=== PATIENT | male | born 1925 | race African-American/Black ===

== ENCOUNTER 2016-05-05 08:36 | Inpatient (IN) | payer MEDICARE, BC, MEDICAID ==
[2016-05-05] MEDS ORDERED: ACETAMINOPHEN 650 MG SUPP.RECT PR ONE ×2 (08:52→08:53)
[2016-05-05] MEDS ORDERED: NORMAL SALINE 1000 ML 1,000 ML IV ONE ×2 (09:03→10:46)
--- NOTE | 2016-05-05 09:03 | ER Document Report ---
ED Fever - General Mode of Arrival: Medic Information source: Relative - daugther TRAVEL OUTSIDE OF THE [place] IN LAST 30 DAYS: No - HPI Patient complains to provider of: Fever Onset: This morning Associated symptoms: Other - see above <TACHO ESCALANTE - Last Filed: 05/05/16 09:05> <MACIEJ MURRAY - Last Filed: 05/05/16 13:38> - General Chief Complaint: Fever Stated Complaint: FEVER Notes: 89 year old non-verbal male with history of pneumonia presents to the ED via EMS after having a high temperature earlier this morning. Daughter states the nurse that was taking care of the patient thinks that there is phlegm build up in the patient's neck. (TACHO ESCALANTE) - Related Data Allergies/Adverse Reactions: No Known Allergies Allergy (Verified 12/25/15 13:11) Past Medical History - General Information source: Relative - Social History Smoking Status: Never Smoker Chew tobacco use (# tins/day): No Frequency of alcohol use: None Drug Abuse: None Family History: Reviewed & Not Pertinent Patient has suicidal ideation: No Patient has homicidal ideation: No - Past Medical History Cardiac Medical History: Reports: Hx Coronary Artery Disease - per EMS, Hx Hypertension Pulmonary Medical History: Reports: Hx Asthma, Hx Pneumonia Endocrine Medical History: Reports: Hx Hypothyroidism Renal/ Medical History: Reports: Hx Benign Prostatic Hyperplasia Musculoskeltal Medical History: Reports Hx Arthritis Psychiatric Medical History: Reports: Hx Anxiety, Hx Dementia, Hx Depression <TACHO ESCALANTE - Last Filed: 05/05/16 09:05> Review of Systems - Review of Systems Constitutional: See HPI, Fever EENT: No symptoms reported Cardiovascular: No symptoms reported Respiratory: No symptoms reported Gastrointestinal: No symptoms reported Genitourinary: No symptoms reported Male Genitourinary: No symptoms reported Musculoskeletal: No symptoms reported Skin: No symptoms reported Hematologic/Lymphatic: No symptoms reported Neurological/Psychological: No symptoms reported <TACHO ESCALANTE - Last Filed: 05/05/16 09:05> <MACIEJ MURRAY - Last Filed: 05/05/16 13:38> - Review of Systems Notes: A comprehensive ROS is unobtainable due to the patient's status. (TACHO ESCALANTE) Physical Exam - Vital signs Interpretation: Other - Patient was at 84% oxygen saturation on room air upon examination - General General appearance: Alert, Other - mouth breather In distress: None - HEENT Head: Normocephalic, Atraumatic Eyes: Normal Extraocular movements intact: Yes Pupils: PERRL - Respiratory Respiratory status: No respiratory distress Breath sounds: Rhonchi - Cardiovascular Rhythm: Regular Heart sounds: Normal auscultation - Abdominal Inspection: Normal - Back Back: Normal - Extremities General upper extremity: Normal inspection General lower extremity: Normal inspection - Neurological Neuro grossly intact: Yes - Skin Skin Temperature: Hot Skin Moisture: Dry Skin Color: Normal <TACHO ESCALANTE - Last Filed: 05/05/16 09:05> <MACIEJ MURRAY - Last Filed: 05/05/16 13:38> - Vital signs Vitals: Temp Pulse Resp BP Pulse Ox 103.4 F H 92 24 H 147/113 H 91 L 05/05/16 08:49 05/05/16 08:49 05/05/16 08:49 05/05/16 08:49 05/05/16 08:49 (TACHO ESCALANTE) (MACIEJ MURRAY) Course <TACHO ESCALANTE - Last Filed: 05/05/16 09:05> - Laboratory Result Diagrams: 05/05/16 11:00 05/05/16 11:00 - Diagnostic Test Radiology reviewed: Image reviewed, Reports reviewed - Bilateral lower lobe airspace disease right greater than left - EKG Interpretation by Fl EKG shows normal: Sinus rhythm, Intervals, QRS Complexes, ST-T Waves. abnormal : [place] Rate: Normal - 85 Rhythm: Arrthymia [place]/QRS: Left axis deviation When compared to previous EKG there are: No significant change - Consults Dr. Santos Time consulted: 11:00 Consulted provider: will see as inpatient <MACIEJ MURRAY - Last Filed: 05/05/16 13:38> - Re-evaluation Re-evalutation: 05/05/16 09:38 The daughter reports the patient is a difficult IV stick. He almost always requires central lines to be placed. PROCEEDURE: External Jugular Vein IV Catheter Insertion--- I found a good right external jugular vein, this was accessed with an 18-gauge IV catheter. Initially there was blood in the tube that went up and down with respirations but was unable to aspirate the blood. The catheter was flushed several times with saline flush up to 40 mL's. Each time flushed easily, no swelling was seen. The IV bag was hung and allowed to free flow and would run fast between respirations and slow down with respiration. After approximately half a liter of fluid there is still no swelling seen. Blood cannot be pulled back from the catheter. (MACIEJ MURRAY) - Vital Signs Vital signs: Temp Pulse Resp BP Pulse Ox 101 F H 82 22 H 90/54 L 95 05/05/16 12:01 05/05/16 10:20 05/05/16 12:01 05/05/16 12:01 05/05/16 12:01 (TACHO ESCALANTE) (MACIEJ MURRAY) - Laboratory Laboratory results interpreted by me: 05/05/16 05/05/16 05/05/16 09:29 11:00 11:00 RBC 3.35 L Hgb 10.2 L Hct 31.1 L RDW 17.2 H Plt Count 71 L Band Neutrophils % 21 H Monocytes % (Manual) 0 L Metamyelocytes % 3 H Abs Monocytes (Manual) 0.0 L Sodium 156.1 H Chloride 119 H BUN 74 H Creatinine 1.40 H Est GFR ( Amer) 58 L Est GFR (Non-Af Amer) 48 L Glucose 73 L Lactic Acid Creatine Kinase 401 H Albumin 2.4 L Urine Protein 30 H Urine Blood MODERATE H Urine Urobilinogen 4.0 H Ur Leukocyte Esterase LARGE H Urine Ascorbic Acid 40 H 05/05/16 11:00 RBC Hgb Hct RDW Plt Count Band Neutrophils % Monocytes % (Manual) Metamyelocytes % Abs Monocytes (Manual) Sodium Chloride BUN Creatinine Est GFR ( Amer) Est GFR (Non-Af Amer) Glucose Lactic Acid 2.4 H Creatine Kinase Albumin Urine Protein Urine Blood Urine Urobilinogen Ur Leukocyte Esterase Urine Ascorbic Acid Critical Care Note - Critical Care Note Total time excluding time spent on procedures (mins): 35 <MACIEJ MURRAY - Last Filed: 05/05/16 13:38> Discharge <TACHO ESCALANTE - Last Filed: 05/05/16 09:05> - Discharge Unit Admitted: Telemetry <MACIEJ MURRAY - Last Filed: 05/05/16 13:38> - Discharge Clinical Impression: Severe sepsis, Dehydration Pneumonia Qualifiers: Pneumonia type: due to unspecified organism Laterality: bilateral Lung location : lower lobe of lung Qualified Code(s): J18.9 - Pneumonia, unspecified organism Fever Qualifiers: Fever type: unspecified Qualified Code(s): R50.9 - Fever, unspecified Hypotension Qualifiers: Hypotension type: other hypotension type Qualified Code(s): I95.89 - Other hypotension Aspiration pneumonia Qualifiers: Aspiration pneumonia type: unspecified Laterality: left Lung location: lower lobe of lung Qualified Code(s): J69.0 - Pneumonitis due to inhalation of food and vomit BPH with obstruction/lower urinary tract symptoms Qualifiers: Prostatic enlargement morphology: unspecified morphology Qualified Code(s): N40.1 - Benign prostatic hyperplasia with lower urinary tract symptoms Hypothyroidism Qualifiers: Hypothyroidism type: unspecified Qualified Code(s): E03.9 - Hypothyroidism, unspecified Osteoarthritis Qualifiers: Osteoarthritis location: unspecified site Osteoarthritis type: unspecified Qualified Code(s): M19.90 - Unspecified osteoarthritis, unspecified site Alzheimer disease Qualifiers: Alzheimer's disease onset: late-onset Dementia behavioral disturbance: without behavioral disturbance Qualified Code(s): G30.1 - Alzheimer's disease with late onset Leukocytosis Qualifiers: Leukocytosis type: bandemia Qualified Code(s): D72.825 - Bandemia Condition: Fair Disposition: ADMITTED INPATIENT Scribe Attestation: 05/05/16 11:04 I personally performed the services described in the documentation, reviewed and edited the documentation which was dictated to the scribe in my presence, and it accurately records my words and actions. (MACIEJ MURRAY) Scribe Documentation - Scribe Written by Scribe:: Tacho Escalante (05/05/2016) acting as scribe for :: Otis <TACHO ESCALANTE - Last Filed: 05/05/16 09:05>
[2016-05-05 10:05] LABS: AMORPHOUS SEDIMENT,URINE TRACE /HPF; APPEARANCE,URINE CLOUDY; BILIRUBIN,URINE NEGATIVE (NEGATIVE); GLUCOSE, URINE NEGATIVE (NEGATIVE); KETONES,URINE NEGATIVE (NEGATIVE); LEUKOCYTE ESTERASE,URINE LARGE (NEGATIVE); NITRITE,URINE NEGATIVE (NEGATIVE); PROTEIN,URINE 30 mg/dL (NEGATIVE); URINE SPECIFIC GRAVITY 1.016
[2016-05-05] MEDS ORDERED: LEVOFLOXACIN 750 MG/D5W RTU 150 ML IV ONE (10:53)
[2016-05-05 11:20] LABS: HEMATOCRIT 31.1 % (37.9-51.0); HEMOGLOBIN 10.2 g/dL (13.5-17.0); HGB HCT DIFFERENCE -0.5; MEAN CORPUSCULAR HEMOGLOBIN 30.6 pg (27.0-33.4); MEAN CORPUSCULAR HGB CONC 32.9 g/dL (32.0-36.0); MEAN CORPUSCULAR VOLUME 93 fl (80-97); RED BLOOD COUNT 3.35 10^6/uL (4.35-5.55); RED CELL DISTRIBUTION WIDTH 17.2 % (11.5-14.0); WHITE BLOOD COUNT 6.3 10^3/uL (4.0-10.5)
[2016-05-05 11:35] LABS: ALANINE AMINOTRANSFERASE 60 U/L (21-72); ALBUMIN 2.4 g/dL (3.5-5.0); ALKALINE PHOSPHATASE 105 U/L (38-126); ANION GAP 11 (5-19); ASPARTATE AMINO TRANSFERASE 56 U/L (17-59); BILIRUBIN,TOTAL 1.2 mg/dL (0.2-1.3); BLOOD UREA NITROGEN 74 mg/dL (7-20); CALCIUM 8.8 mg/dL (8.4-10.2); CARBON DIOXIDE 26 mmol/L (22-30); CHLORIDE 119 mmol/L (98-107); CREATINE KINASE 401 U/L (55-170); GLUCOSE 73 mg/dL (75-110); POTASSIUM 4.2 mmol/L (3.6-5.0); SODIUM 156.1 mmol/L (137-145); TOTAL PROTEIN 6.3 g/dL (6.3-8.2)
[2016-05-05 11:38] LABS: BASOPHILS % (MANUAL) 0 % (0-2); EOSINOPHILS % (MANUAL) 0 % (0-6); LYMPHOCYTES % (MANUAL) 24 % (13-45); TOTAL CELLS COUNTED 100
[2016-05-05 11:41] LABS: ANISOCYTOSIS 1+; BAND NEUTROPHILS % (MANUAL) 21 % (3-5); POIKILOCYTOSIS 1+; TARGET CELLS 1+
[2016-05-05 11:48] LABS: CREATINE KINASE MB < 0.22 ng/mL (<4.55)
[2016-05-05 11:53] LABS: TROPONIN I 0.149 ng/mL
[2016-05-05] MEDS ORDERED: LEVOTHYROXINE SODIUM 0.05 MG TABLET PO ONE (16:30)
[2016-05-05] MEDS: DEXTROSE 5%-WATER 1000 ML 1,000 ML IV PRN (18:40)
[2016-05-05 20:38] LABS: LIPASE 26.9 U/L (23-300); MAGNESIUM 2.2 mg/dL (1.6-2.3); PHOSPHORUS 2.1 mg/dL (2.5-4.5)
[2016-05-05 21:09] LABS: THYROID STIMULATING HORMONE 6.07 uIU/mL (0.47-4.68)
--- NOTE | 2016-05-05 21:28 | EKG REPORT ---
SEVERITY:- BORDERLINE ECG - SINUS RHYTHM W PACS BORDERLINE LEFT AXIS DEVIATION : Confirmed by: Pérez Sepulveda MD 05-May-2016 21:28:04
[2016-05-05] MEDS: HEPARIN SOD (PORCINE) 5,000 UNIT/ML 1 ML SYRINGE SUBCUT SCH (21:47)
[2016-05-06 04:30] LABS: HEMATOCRIT 30.7 % (37.9-51.0); HEMOGLOBIN 10.1 g/dL (13.5-17.0); HGB HCT DIFFERENCE -0.4; MEAN CORPUSCULAR HEMOGLOBIN 30.4 pg (27.0-33.4); MEAN CORPUSCULAR HGB CONC 32.8 g/dL (32.0-36.0); MEAN CORPUSCULAR VOLUME 93 fl (80-97); RED CELL DISTRIBUTION WIDTH 17.1 % (11.5-14.0); WHITE BLOOD COUNT 9.9 10^3/uL (4.0-10.5)
[2016-05-06 04:32] LABS: ALANINE AMINOTRANSFERASE 59 U/L (21-72); ALBUMIN 2.3 g/dL (3.5-5.0); ALKALINE PHOSPHATASE 85 U/L (38-126); ANION GAP 9 (5-19); ASPARTATE AMINO TRANSFERASE 44 U/L (17-59); BILIRUBIN,DIRECT 0.1 mg/dL (0.0-0.3); BILIRUBIN,TOTAL 1.5 mg/dL (0.2-1.3); BLOOD UREA NITROGEN 80 mg/dL (7-20); CALCIUM 8.4 mg/dL (8.4-10.2); CARBON DIOXIDE 25 mmol/L (22-30); CHLORIDE 118 mmol/L (98-107); CREATININE RESULT 1.47 mg/dL (0.52-1.25); GLUCOSE 87 mg/dL (75-110); POTASSIUM 4.3 mmol/L (3.6-5.0); SODIUM 152.1 mmol/L (137-145); TOTAL PROTEIN 5.9 g/dL (6.3-8.2)
[2016-05-06 04:43] LABS: CREATINE KINASE MB 0.99 ng/mL (<4.55); TROPONIN I 0.091 ng/mL
[2016-05-06] MEDS: HEPARIN SOD (PORCINE) 5,000 UNIT/ML 1 ML SYRINGE SUBCUT SCH ×3 (05:38→21:27)
[2016-05-06 05:45] LABS: URINE BARBITURATES SCREEN NEGATIVE; URINE METHADONE SCREEN NEGATIVE; URINE PHENCYCLIDINE SCREEN NEGATIVE
[2016-05-06] MEDS: LEVOTHYROXINE SODIUM 0.05 MG TABLET PO SCH (05:59)
[2016-05-06 06:05] LABS: BAND NEUTROPHILS % (MANUAL) 18 % (3-5); BASOPHILS % (MANUAL) 0 % (0-2); EOSINOPHILS % (MANUAL) 2 % (0-6); LYMPHOCYTES % (MANUAL) 7 % (13-45); TOTAL CELLS COUNTED 100
[2016-05-06 06:06] LABS: ANISOCYTOSIS 1+; SCHISTOCYTES SLIGHT; TARGET CELLS SLIGHT; TOXIC GRANULATION SLIGHT
[2016-05-06] MEDS: LEVOFLOXACIN 750 MG/D5W RTU 750 MG/150 ML RTUPB IV SCH (16:07)
--- NOTE | 2016-05-06 18:12 | PDOC H&P ---
History of Present Illness Admission Date/PCP: 05/05/16 15:29 History of Present Illness: LILA OLIVEROS is a 89 year old male, he has advanced dementia , he is non- verbal , he does not communicate bed bound [facility]. [facility] because of pneumonia, is a DO NOT RESUSCITATE status. Chest x-ray showed large opacification involving the inferior right hemithorax. This suggest aspiration pneumonia. He has indwelling Saldivar catheter and is seems that the urethra is necrotic Past Medical History Cardiac Medical History: Reports: Coronary Artery Disease - per EMS, Hypertension Pulmonary Medical History: Reports: Asthma, Pneumonia Endocrine Medical History: Reports: Hypothyroidism Musculoskeltal Medical History: Reports: Arthritis Psychiatric Medical History: Reports: Dementia, Depression Social History Information Source: Outside Facility Records Lives with: Long-Term Smoking Status: Never Smoker Frequency of Alcohol Use: None Hx Recreational Drug Use: No Hx Prescription Drug Abuse: No Family History Family History: Reviewed & Not Pertinent Parental Family History Reviewed: Yes Children Family History Reviewed: Yes Sibling(s) Family History Reviewed.: Yes Medication/Allergy Home Medications: Azelastine HCl 205.5 mcg NS DAILY 02/23/15 Loratadine 10 mg PO DAILY 02/23/15 Tamsulosin HCl 0.4 mg PO DAILY 02/23/15 Losartan Potassium 1 tab PO DAILY 12/26/15 Multivit-Min/FA/Lycopene/Lut [Certavite Sr-Antioxidant Tab] 1 tab PO DAILY 12/25 Polyvinyl Alcohol [Liquitears] 1 drop OU BID 12/26/15 Carvedilol [Coreg 3.125 mg Tablet] 3.125 mg PO Q12 #0 tablet 12/30/15 Furosemide [Lasix 40 mg Tablet] 40 mg PO QAM #30 tablet 12/30/15 Levothyroxine Sodium [Synthroid 0.05 mg Tablet] 0.05 mg PO Q6AM #0 tablet Docusate Sodium [Colace 100 mg Capsule] 100 mg PO BID 05/05/16 Donepezil HCl [Aricept] 10 mg PO DAILY 05/05/16 Allergies/Adverse Reactions: No Known Allergies Allergy (Verified 12/25/15 13:11) Review of Systems ROS unobtainable: Due to mental status - He has advanced dementia,history not obtaianble Physical Exam Vital Signs: Temp Pulse Resp BP Pulse Ox 99.3 F 73 19 102/53 L 97 05/06/16 00:39 05/06/16 00:39 05/06/16 00:39 05/06/16 00:39 05/06/16 09:33 Intake & Output 05/05/16 05/06/16 05/07/16 06:59 06:59 06:59 Intake Total 0 Output Total 570 Balance -570 Weight 83.6 kg Respiratory exam: PRESENT: crackles Cardiovascular exam: PRESENT: +S1, +S2 GI/Abdominal exam: PRESENT: soft - There is a PEG tube in place Gentrourinary exam: PRESENT: indwelling catheter - There is necrosis of the urethra Neurological exam: PRESENT: altered Skin exam: PRESENT: other - There are multiple decubiti ulcer involving the sacrum and both ankles, the sacral decubiti ulcer is stage s and the ankle decubiti ulcer is stage 1-2 Results Laboratory Results: 05/06/16 03:54 05/06/16 03:54 05/06/16 05/06/16 03:54 03:54 WBC 9.9 RBC 3.30 L Hgb 10.1 L Hct 30.7 L MCV 93 MCH 30.4 MCHC 32.8 RDW 17.1 H Plt Count 65 L Seg Neutrophils % Not Reportable Lymphocytes % Not Reportable Monocytes % Not Reportable Eosinophils % Not Reportable Basophils % Not Reportable Absolute Neutrophils Not Reportable Absolute Lymphocytes Not Reportable Absolute Monocytes Not Reportable Absolute Eosinophils Not Reportable Absolute Basophils Not Reportable Sodium 152.1 H Potassium 4.3 Chloride 118 H Carbon Dioxide 25 Anion Gap 9 BUN 80 H Creatinine 1.47 H Est GFR ( Amer) 55 L Est GFR (Non-Af Amer) 45 L Glucose 87 Calcium 8.4 Total Bilirubin 1.5 H AST 44 ALT 59 Alkaline Phosphatase 85 Total Protein 5.9 L Albumin 2.3 L 05/06/16 03:54 CK-MB (CK-2) 0.99 Troponin I 0.091 Impressions: Chest X-Ray 05/05/16 09:02 IMPRESSION: New bilateral airspace opacification right more than left suggests pneumonia. Consider continued surveillance including follow-up in 7-12 weeks. Assessment & Plan - Diagnosis (1) Aspiration pneumonia Qualifiers: Aspiration pneumonia type: unspecified Laterality: bilateral Lung location: unspecified part of lung Qualified Code(s): J69.0 - Pneumonitis due to inhalation of food and vomit Is this a current diagnosis for this admission?: YesPlan: He has bilateral pneumonia, most likely due to aspiration. Patient on Unasyn and Levaquin (2) Sacral decubitus ulcer, stage III Is this a current diagnosis for this admission?: YesPlan: This is present on admission (3) Urethra disorder Is this a current diagnosis for this admission?: YesPlan: He has indwelling Saldivar catheter with urethra breakdown, he will need suprapubic catheter
--- NOTE | 2016-05-06 18:20 | PDOC PROGRESS REPORT ---
Subjective Progress Note for:: 05/06/16 Subjective:: He was admitted yesterday because of aspiration pneumonia, he does not communicate, he has advanced dementia, bedbound Physical Exam Vital Signs: Temp Pulse Resp BP Pulse Ox 99.3 F 73 19 102/53 L 97 05/06/16 00:39 05/06/16 00:39 05/06/16 00:39 05/06/16 00:39 05/06/16 09:33 Intake & Output 05/05/16 05/06/16 05/07/16 06:59 06:59 06:59 Intake Total 0 Output Total 570 Balance -570 Weight 83.6 kg Eye exam: PRESENT: PERRLA Respiratory exam: PRESENT: rales Cardiovascular exam: PRESENT: +S1, +S2 GI/Abdominal exam: PRESENT: soft Results Laboratory Results: 05/06/16 03:54 05/06/16 03:54 05/06/16 05/06/16 03:54 03:54 WBC 9.9 RBC 3.30 L Hgb 10.1 L Hct 30.7 L MCV 93 MCH 30.4 MCHC 32.8 RDW 17.1 H Plt Count 65 L Seg Neutrophils % Not Reportable Lymphocytes % Not Reportable Monocytes % Not Reportable Eosinophils % Not Reportable Basophils % Not Reportable Absolute Neutrophils Not Reportable Absolute Lymphocytes Not Reportable Absolute Monocytes Not Reportable Absolute Eosinophils Not Reportable Absolute Basophils Not Reportable Sodium 152.1 H Potassium 4.3 Chloride 118 H Carbon Dioxide 25 Anion Gap 9 BUN 80 H Creatinine 1.47 H Est GFR ( Amer) 55 L Est GFR (Non-Af Amer) 45 L Glucose 87 Calcium 8.4 Total Bilirubin 1.5 H AST 44 ALT 59 Alkaline Phosphatase 85 Total Protein 5.9 L Albumin 2.3 L 05/06/16 03:54 CK-MB (CK-2) 0.99 Troponin I 0.091 Impressions: Chest X-Ray 05/05/16 09:02 IMPRESSION: New bilateral airspace opacification right more than left suggests pneumonia. Consider continued surveillance including follow-up in 7-12 weeks. Assessment & Plan - Diagnosis (1) Aspiration pneumonia Qualifiers: Aspiration pneumonia type: unspecified Laterality: bilateral Lung location: unspecified part of lung Qualified Code(s): J69.0 - Pneumonitis due to inhalation of food and vomit Is this a current diagnosis for this admission?: YesPlan: Continue IV antibiotic (2) Sacral decubitus ulcer, stage III Is this a current diagnosis for this admission?: Yes (3) Urethra disorder Is this a current diagnosis for this admission?: Yes
[2016-05-06] MEDS ORDERED: AMPICILLIN SOD/SULBACTAM 3 GM VIAL ONE (21:01)
[2016-05-06] MEDS: AMPICILLIN SODIUM/SULBACTAM NA 3 GM in NORMAL SALINE 100 ML IV SCH ×2 (21:25→23:55)
[2016-05-07 05:21] LABS: HEMATOCRIT 29.2 % (37.9-51.0); HEMOGLOBIN 9.7 g/dL (13.5-17.0); HGB HCT DIFFERENCE -0.1; MEAN CORPUSCULAR HEMOGLOBIN 30.7 pg (27.0-33.4); MEAN CORPUSCULAR HGB CONC 33.2 g/dL (32.0-36.0); MEAN CORPUSCULAR VOLUME 92 fl (80-97); RED BLOOD COUNT 3.17 10^6/uL (4.35-5.55); RED CELL DISTRIBUTION WIDTH 16.8 % (11.5-14.0); WHITE BLOOD COUNT 10.6 10^3/uL (4.0-10.5)
[2016-05-07 05:22] LABS: ALANINE AMINOTRANSFERASE 56 U/L (21-72); ALBUMIN 1.9 g/dL (3.5-5.0); ALKALINE PHOSPHATASE 84 U/L (38-126); ANION GAP 11 (5-19); ASPARTATE AMINO TRANSFERASE 45 U/L (17-59); BILIRUBIN,TOTAL 1.3 mg/dL (0.2-1.3); BLOOD UREA NITROGEN 78 mg/dL (7-20); CALCIUM 8.1 mg/dL (8.4-10.2); CARBON DIOXIDE 24 mmol/L (22-30); CHLORIDE 115 mmol/L (98-107); CREATININE RESULT 1.35 mg/dL (0.52-1.25); GLUCOSE 87 mg/dL (75-110); SODIUM 149.7 mmol/L (137-145); TOTAL PROTEIN 5.6 g/dL (6.3-8.2)
[2016-05-07] MEDS: AMPICILLIN SODIUM/SULBACTAM NA 3 GM in NORMAL SALINE 100 ML IV SCH ×4 (05:42→23:54)
[2016-05-07] MEDS: DEXTROSE 5%-WATER 1000 ML 1,000 ML IV PRN ×2 (05:42→18:10)
[2016-05-07] MEDS: LEVOTHYROXINE SODIUM 0.05 MG TABLET PO SCH (05:42)
[2016-05-07 05:49] LABS: BAND NEUTROPHILS % (MANUAL) 10 % (3-5); BASOPHILS % (MANUAL) 0 % (0-2); EOSINOPHILS % (MANUAL) 2 % (0-6); LYMPHOCYTES % (MANUAL) 15 % (13-45); TOTAL CELLS COUNTED 100
[2016-05-07 05:51] LABS: TOXIC GRANULATION SLIGHT; TOXIC VACUOLATION PRESENT
[2016-05-07 05:52] LABS: ANISOCYTOSIS 1+; HYPOCHROMASIA SLIGHT; OVALOCYTES SLIGHT; POIKILOCYTOSIS SLIGHT
[2016-05-07] MEDS: HEPARIN SOD (PORCINE) 5,000 UNIT/ML 1 ML SYRINGE SUBCUT SCH ×3 (05:58→23:52)
[2016-05-07] MEDS: LEVOFLOXACIN 750 MG/D5W RTU 750 MG/150 ML RTUPB IV SCH (10:45)
--- NOTE | 2016-05-07 20:31 | PDOC PROGRESS REPORT ---
Subjective Progress Note for:: 05/07/16 Subjective:: I saw patient, his daughter by the bedside, I had a long discussion with her about her father's condition and also prognosis. He has indwelling Saldivar catheter with disorder of the urethra, he probably needed to have suprapubic catheter, but there is no etiology on medical staff at this time. Once he is discharged a be referred to urologist on outpatient Physical Exam Vital Signs: Temp Pulse Resp BP Pulse Ox 98.8 F 60 14 113/62 98 05/07/16 15:48 05/07/16 17:16 05/07/16 17:16 05/07/16 15:48 05/07/16 17:16 Intake & Output 05/06/16 05/07/16 05/08/16 06:59 06:59 06:59 Intake Total 0 1253 2226 Output Total 570 875 500 Balance -226 098 6855 Weight 83.6 kg 86.6 kg General appearance: PRESENT: no acute distress Eye exam: PRESENT: PERRLA Respiratory exam: PRESENT: decreased breath sounds Cardiovascular exam: PRESENT: +S1, +S2 GI/Abdominal exam: PRESENT: soft Results Laboratory Results: 05/07/16 04:16 05/07/16 04:16 05/07/16 05/07/16 04:16 04:16 WBC 10.6 H RBC 3.17 L Hgb 9.7 L Hct 29.2 L MCV 92 MCH 30.7 MCHC 33.2 RDW 16.8 H Plt Count 60 L Seg Neutrophils % Not Reportable Lymphocytes % Not Reportable Monocytes % Not Reportable Eosinophils % Not Reportable Basophils % Not Reportable Absolute Neutrophils Not Reportable Absolute Lymphocytes Not Reportable Absolute Monocytes Not Reportable Absolute Eosinophils Not Reportable Absolute Basophils Not Reportable Sodium 149.7 H Potassium 4.0 Chloride 115 H Carbon Dioxide 24 Anion Gap 11 BUN 78 H Creatinine 1.35 H Est GFR ( Amer) > 60 Est GFR (Non-Af Amer) 50 L Glucose 87 Calcium 8.1 L Total Bilirubin 1.3 AST 45 ALT 56 Alkaline Phosphatase 84 Total Protein 5.6 L Albumin 1.9 L 05/06/16 03:54 CK-MB (CK-2) 0.99 Troponin I 0.091 Impressions: Chest X-Ray 05/05/16 09:02 IMPRESSION: New bilateral airspace opacification right more than left suggests pneumonia. Consider continued surveillance including follow-up in 7-12 weeks. Assessment & Plan - Diagnosis (1) Aspiration pneumonia Qualifiers: Aspiration pneumonia type: unspecified Laterality: bilateral Lung location: unspecified part of lung Qualified Code(s): J69.0 - Pneumonitis due to inhalation of food and vomit Is this a current diagnosis for this admission?: Yes (2) Sacral decubitus ulcer, stage III Is this a current diagnosis for this admission?: Yes (3) Urethra disorder Is this a current diagnosis for this admission?: Yes
[2016-05-08] MEDS: AMPICILLIN SODIUM/SULBACTAM NA 3 GM in NORMAL SALINE 100 ML IV SCH ×3 (06:20→17:25)
[2016-05-08] MEDS: HEPARIN SOD (PORCINE) 5,000 UNIT/ML 1 ML SYRINGE SUBCUT SCH ×3 (06:24→22:57)
[2016-05-08] MEDS: LEVOTHYROXINE SODIUM 0.05 MG TABLET PO SCH (06:25)
[2016-05-08 07:53] LABS: ABSOLUTE EOSINOPHILS # (AUTO) 0.2 10^3/uL (0.0-0.6); ABSOLUTE LYMPHOCYTES (AUTO) 2.6 10^3/uL (0.5-4.7); ABSOLUTE MONOCYTES (AUTO) 0.4 10^3/uL (0.1-1.4); ABSOLUTE NEUT (AUTO) 6.4 10^3/uL (1.7-8.2); BASOPHILS % (AUTO) 0.2 % (0-2); EOSINOPHILS % (AUTO) 2.1 % (0-6); HEMATOCRIT 29.3 % (37.9-51.0); HEMOGLOBIN 9.6 g/dL (13.5-17.0); HGB HCT DIFFERENCE -0.5; LYMPHOCYTES % (AUTO) 26.8 % (13-45); MEAN CORPUSCULAR HEMOGLOBIN 30.3 pg (27.0-33.4); MEAN CORPUSCULAR HGB CONC 32.8 g/dL (32.0-36.0); MEAN CORPUSCULAR VOLUME 92 fl (80-97); MONOCYTES % (AUTO) 4.2 % (3-13); RED BLOOD COUNT 3.18 10^6/uL (4.35-5.55); RED CELL DISTRIBUTION WIDTH 16.9 % (11.5-14.0); SEGMENTED NEUTROPHILS % (AUTO) 66.7 % (42-78); WHITE BLOOD COUNT 9.6 10^3/uL (4.0-10.5)
[2016-05-08 08:08] LABS: ALBUMIN 2.1 g/dL (3.5-5.0); ANION GAP 9 (5-19); BLOOD UREA NITROGEN 68 mg/dL (7-20); CALCIUM 8.2 mg/dL (8.4-10.2); CARBON DIOXIDE 27 mmol/L (22-30); CHLORIDE 114 mmol/L (98-107); CREATININE RESULT 1.31 mg/dL (0.52-1.25); GLUCOSE 109 mg/dL (75-110); POTASSIUM 3.6 mmol/L (3.6-5.0); SODIUM 149.9 mmol/L (137-145)
[2016-05-08 08:09] LABS: ALANINE AMINOTRANSFERASE 51 U/L (21-72); ALKALINE PHOSPHATASE 105 U/L (38-126); ASPARTATE AMINO TRANSFERASE 58 U/L (17-59); BILIRUBIN,TOTAL 0.8 mg/dL (0.2-1.3); TOTAL PROTEIN 5.9 g/dL (6.3-8.2)
[2016-05-08 08:46] LABS: ANISOCYTOSIS 1+; HYPOCHROMASIA 1+; POLYCHROMASIA SLIGHT; TARGET CELLS SLIGHT; TOXIC GRANULATION 1+
[2016-05-08] MEDS: LEVOFLOXACIN 750 MG/D5W RTU 750 MG/150 ML RTUPB IV SCH (10:01)
--- NOTE | 2016-05-08 17:42 | PDOC PROGRESS REPORT ---
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 The urine culture is growing polymicrobial which is not unexpected. Physical Exam Vital Signs: Temp Pulse Resp BP Pulse Ox 99.0 F 61 20 128/69 H 100 05/08/16 12:21 05/08/16 12:22 05/08/16 12:21 05/08/16 12:21 05/08/16 12:21 Intake & Output 05/07/16 05/08/16 05/09/16 06:59 06:59 06:59 Intake Total 1253 3276 2921 Output Total 875 500 100 Balance 378 2776 2821 Weight 86.6 kg 87.8 kg General appearance: PRESENT: no acute distress Eye exam: PRESENT: PERRLA Respiratory exam: PRESENT: crackles Cardiovascular exam: PRESENT: +S1, +S2 Results Laboratory Results: 05/08/16 07:34 05/08/16 07:34 05/08/16 05/08/16 07:34 07:34 WBC 9.6 RBC 3.18 L Hgb 9.6 L Hct 29.3 L MCV 92 MCH 30.3 MCHC 32.8 RDW 16.9 H Plt Count 56 L Seg Neutrophils % 66.7 Lymphocytes % 26.8 Monocytes % 4.2 Eosinophils % 2.1 Basophils % 0.2 Absolute Neutrophils 6.4 Absolute Lymphocytes 2.6 Absolute Monocytes 0.4 Absolute Eosinophils 0.2 Absolute Basophils 0.0 Sodium 149.9 H Potassium 3.6 Chloride 114 H Carbon Dioxide 27 Anion Gap 9 BUN 68 H Creatinine 1.31 H Est GFR ( Amer) > 60 Est GFR (Non-Af Amer) 52 L Glucose 109 Calcium 8.2 L Total Bilirubin 0.8 AST 58 ALT 51 Alkaline Phosphatase 105 Total Protein 5.9 L Albumin 2.1 L 05/06/16 04:50 Catheterized Urine Urine Culture - Final Providencia Stuartii Pseudomonas Aeruginosa 05/06/16 03:54 CK-MB (CK-2) 0.99 Troponin I 0.091 Impressions: Chest X-Ray 05/05/16 09:02 IMPRESSION: New bilateral airspace opacification right more than left suggests pneumonia. Consider continued surveillance including follow-up in 7-12 weeks. Assessment & Plan - Diagnosis (1) Aspiration pneumonia Qualifiers: Aspiration pneumonia type: unspecified Laterality: bilateral Lung location: unspecified part of lung Qualified Code(s): J69.0 - Pneumonitis due to inhalation of food and vomit Is this a current diagnosis for this admission?: Yes (2) Sacral decubitus ulcer, stage III Is this a current diagnosis for this admission?: Yes (3) Urethra disorder Is this a current diagnosis for this admission?: Yes (4) Urinary tract infection associated with indwelling urethral catheter Qualifiers: Encounter type: sequela Qualified Code(s): T83.511S - Infection and inflammatory reaction due to indwelling urethral catheter, sequela; N39.0 - Urinary tract infection, site not specified Is this a current diagnosis for this admission?: Yes
[2016-05-09] MEDS: AMPICILLIN SODIUM/SULBACTAM NA 3 GM in NORMAL SALINE 100 ML IV SCH ×3 (00:21→13:29)
[2016-05-09] MEDS: LEVOTHYROXINE SODIUM 0.05 MG TABLET PO SCH (05:38)
[2016-05-09] MEDS: HEPARIN SOD (PORCINE) 5,000 UNIT/ML 1 ML SYRINGE SUBCUT SCH ×3 (05:43→21:55)
[2016-05-09] MEDS: DEXTROSE 5%-WATER 1000 ML 1,000 ML IV PRN (08:31)
[2016-05-09] MEDS: LEVOFLOXACIN 750 MG/D5W RTU 750 MG/150 ML RTUPB IV SCH (10:46)
[2016-05-09] MEDS: CEFEPIME HCL 2 GM in DEXTROSE 5%-WATER 50 ML IV SCH (21:54)
[2016-05-10] MEDS: LEVOTHYROXINE SODIUM 0.05 MG TABLET PO SCH (05:27)
[2016-05-10] MEDS: HEPARIN SOD (PORCINE) 5,000 UNIT/ML 1 ML SYRINGE SUBCUT SCH ×3 (05:27→21:50)
[2016-05-10] MEDS: DEXTROSE 5%-WATER 1000 ML 1,000 ML IV PRN (14:16)
--- NOTE | 2016-05-10 16:58 | PDOC PROGRESS REPORT ---
Subjective Progress Note for:: 05/09/16 Subjective:: He has polymicrobial UTI and staph aureus pneumonia ORGANISMS sensitive to cefepime Physical Exam Vital Signs: Temp Pulse Resp BP Pulse Ox 98.4 F 49 L 18 141/83 H 100 05/09/16 15:54 05/09/16 15:54 05/09/16 12:28 05/09/16 15:54 05/09/16 15:54 Intake & Output 05/08/16 05/09/16 05/10/16 06:59 06:59 06:59 Intake Total 3276 4271 1100 Output Total 500 700 Balance 2776 3571 1100 Weight 87.8 kg General appearance: PRESENT: mild distress Eye exam: PRESENT: PERRLA Respiratory exam: PRESENT: crackles Cardiovascular exam: PRESENT: +S1, +S2 Results Laboratory Results: 05/08/16 07:34 05/08/16 07:34 05/06/16 04:50 Catheterized Urine Urine Culture - Final Providencia Stuartii Pseudomonas Aeruginosa 05/06/16 03:54 CK-MB (CK-2) 0.99 Troponin I 0.091 Impressions: Chest X-Ray 05/05/16 09:02 IMPRESSION: New bilateral airspace opacification right more than left suggests pneumonia. Consider continued surveillance including follow-up in 7-12 weeks. Assessment & Plan - Diagnosis (1) Aspiration pneumonia Qualifiers: Aspiration pneumonia type: unspecified Laterality: bilateral Lung location: unspecified part of lung Qualified Code(s): J69.0 - Pneumonitis due to inhalation of food and vomit Is this a current diagnosis for this admission?: YesPlan: Continue IV cefepime (2) Sacral decubitus ulcer, stage III Is this a current diagnosis for this admission?: Yes (3) Urethra disorder Is this a current diagnosis for this admission?: Yes (4) Urinary tract infection associated with indwelling urethral catheter Qualifiers: Encounter type: sequela Qualified Code(s): T83.511S - Infection and inflammatory reaction due to indwelling urethral catheter, sequela; N39.0 - Urinary tract infection, site not specified Is this a current diagnosis for this admission?: Yes
--- NOTE | 2016-05-10 17:00 | PDOC PROGRESS REPORT ---
Subjective Progress Note for:: 05/10/16 Subjective:: Patient condition is about the same Physical Exam Vital Signs: Temp Pulse Resp BP Pulse Ox 98.0 F 45 L 20 134/67 H 98 05/10/16 11:52 05/10/16 11:52 05/10/16 11:52 05/10/16 11:52 05/10/16 11:52 Intake & Output 05/09/16 05/10/16 05/11/16 06:59 06:59 06:59 Intake Total 4271 2200 Output Total 700 1000 Balance 3571 1200 Weight 87.8 kg General appearance: PRESENT: mild distress Eye exam: PRESENT: PERRLA Respiratory exam: PRESENT: rales Cardiovascular exam: PRESENT: +S1, +S2 Results Laboratory Results: 05/08/16 07:34 05/08/16 07:34 05/06/16 03:54 CK-MB (CK-2) 0.99 Troponin I 0.091 Impressions: Chest X-Ray 05/05/16 09:02 IMPRESSION: New bilateral airspace opacification right more than left suggests pneumonia. Consider continued surveillance including follow-up in 7-12 weeks. Assessment & Plan - Diagnosis (1) Aspiration pneumonia Qualifiers: Aspiration pneumonia type: unspecified Laterality: bilateral Lung location: unspecified part of lung Qualified Code(s): J69.0 - Pneumonitis due to inhalation of food and vomit Is this a current diagnosis for this admission?: Yes (2) Sacral decubitus ulcer, stage III Is this a current diagnosis for this admission?: Yes (3) Urethra disorder Is this a current diagnosis for this admission?: Yes (4) Urinary tract infection associated with indwelling urethral catheter Qualifiers: Encounter type: sequela Qualified Code(s): T83.511S - Infection and inflammatory reaction due to indwelling urethral catheter, sequela; N39.0 - Urinary tract infection, site not specified Is this a current diagnosis for this admission?: Yes
[2016-05-10] MEDS: CEFEPIME HCL 2 GM in DEXTROSE 5%-WATER 50 ML IV SCH (22:00)
[2016-05-11] MEDS: DEXTROSE 5%-WATER 1000 ML 1,000 ML IV PRN ×2 (02:52→23:50)
[2016-05-11] MEDS: HEPARIN SOD (PORCINE) 5,000 UNIT/ML 1 ML SYRINGE SUBCUT SCH ×3 (05:41→21:44)
[2016-05-11] MEDS: LEVOTHYROXINE SODIUM 0.05 MG TABLET PO SCH (05:44)
--- NOTE | 2016-05-11 11:00 | PDOC PROGRESS REPORT ---
Subjective Progress Note for:: 05/11/16 Subjective:: Patient is doing same no change. Patient is lying in bed alert awake but very bad dementia patient is tolerate tube feeding well Physical Exam Vital Signs: Temp Pulse Resp BP Pulse Ox 98.0 F 47 L 20 129/68 H 100 05/11/16 00:06 05/11/16 00:00 05/11/16 00:06 05/11/16 00:06 05/11/16 02:05 Intake & Output 05/10/16 05/11/16 05/12/16 06:59 06:59 06:59 Intake Total 2200 2386 Output Total 1000 850 Balance 1200 1536 Weight 87.8 kg 88.2 kg General appearance: PRESENT: no acute distress Eye exam: PRESENT: PERRLA Mouth exam: PRESENT: neck supple Respiratory exam: PRESENT: clear to auscultation anastasia Cardiovascular exam: PRESENT: +S1, +S2 GI/Abdominal exam: PRESENT: normal bowel sounds Extremities exam: PRESENT: pedal edema Additional comments: stage 4 decicutus ulcer ulcer on rt leg Neurological exam: PRESENT: alert, altered. ABSENT: oriented to person Skin exam: PRESENT: dry Results Laboratory Results: 05/08/16 07:34 05/08/16 07:34 05/06/16 03:54 CK-MB (CK-2) 0.99 Troponin I 0.091 Impressions: Chest X-Ray 05/05/16 09:02 IMPRESSION: New bilateral airspace opacification right more than left suggests pneumonia. Consider continued surveillance including follow-up in 7-12 weeks. Assessment & Plan - Diagnosis (1) Aspiration pneumonia Qualifiers: Aspiration pneumonia type: unspecified Laterality: left Lung location: lower lobe of lung Qualified Code(s): J69.0 - Pneumonitis due to inhalation of food and vomit Is this a current diagnosis for this admission?: YesPlan: Continue IV antibiotic (2) Dehydration Is this a current diagnosis for this admission?: YesPlan: Stable continues to tube feeding (3) Sacral decubitus ulcer, stage III Is this a current diagnosis for this admission?: YesPlan: Continue current current medications (4) Alzheimer disease Qualifiers: Alzheimer's disease onset: late-onset Dementia behavioral disturbance: without behavioral disturbance Qualified Code(s): G30.1 - Alzheimer's disease with late onset; F02.81 - Dementia in other diseases classified elsewhere with behavioral disturbance Is this a current diagnosis for this admission?: YesPlan: Very poor prognosis - Time Time Spent with patient: 15-24 minutes Medications reviewed and adjusted accordingly: Yes Anticipated discharge: SNF - Inpatient Certification Medical Necessity: Significant Comorbidiites Make Outpatient Treatment Too Risky , Need for IV Antibiotics - Plan Summary Plan Summary: Continue all current medications with the very poor prognosis
[2016-05-11] MEDS: CEFEPIME HCL 2 GM in DEXTROSE 5%-WATER 50 ML IV SCH (21:46)
[2016-05-12] MEDS: HEPARIN SOD (PORCINE) 5,000 UNIT/ML 1 ML SYRINGE SUBCUT SCH ×3 (05:43→22:07)
[2016-05-12] MEDS: LEVOTHYROXINE SODIUM 0.05 MG TABLET PO SCH (06:35)
--- NOTE | 2016-05-12 11:38 | PDOC PROGRESS REPORT ---
Subjective Progress Note for:: 05/12/16 Subjective:: Patient is doing same no change. Patient is lying in bed alert awake but very bad dementia patient is tolerate tube feeding well Physical Exam Vital Signs: Temp Pulse Resp BP Pulse Ox 98.9 F 55 L 20 106/58 L 92 05/12/16 07:43 05/12/16 07:43 05/12/16 07:43 05/12/16 07:43 05/12/16 07:43 Intake & Output 05/11/16 05/12/16 05/13/16 06:59 06:59 06:59 Intake Total 2386 2729 222 Output Total 850 900 Balance 1536 1829 222 Weight 88.2 kg 86.5 kg General appearance: PRESENT: no acute distress Head exam: PRESENT: normocephalic Eye exam: PRESENT: PERRLA Mouth exam: PRESENT: neck supple Respiratory exam: PRESENT: clear to auscultation anastasia Cardiovascular exam: PRESENT: +S1, +S2 GI/Abdominal exam: PRESENT: normal bowel sounds, soft Extremities exam: PRESENT: pedal edema Neurological exam: PRESENT: alert Skin exam: PRESENT: normal color Results Laboratory Results: 05/08/16 07:34 05/08/16 07:34 05/06/16 03:54 CK-MB (CK-2) 0.99 Troponin I 0.091 Impressions: Chest X-Ray 05/05/16 09:02 IMPRESSION: New bilateral airspace opacification right more than left suggests pneumonia. Consider continued surveillance including follow-up in 7-12 weeks. Assessment & Plan - Diagnosis (1) Aspiration pneumonia Qualifiers: Aspiration pneumonia type: unspecified Laterality: left Lung location: lower lobe of lung Qualified Code(s): J69.0 - Pneumonitis due to inhalation of food and vomit Is this a current diagnosis for this admission?: YesPlan: Continue IV antibiotic (2) Dehydration Is this a current diagnosis for this admission?: YesPlan: Stable continues to tube feeding (3) Sacral decubitus ulcer, stage III Is this a current diagnosis for this admission?: YesPlan: Continue current current medications (4) Alzheimer disease Qualifiers: Alzheimer's disease onset: late-onset Dementia behavioral disturbance: without behavioral disturbance Qualified Code(s): G30.1 - Alzheimer's disease with late onset; F02.81 - Dementia in other diseases classified elsewhere with behavioral disturbance Is this a current diagnosis for this admission?: YesPlan: Very poor prognosis - Time Time Spent with patient: 15-24 minutes Medications reviewed and adjusted accordingly: Yes Anticipated discharge: SNF - Plan Summary Plan Summary: Continues the current medications patient is DO NOT RESUSCITATE discussed with the family
[2016-05-12] MEDS: DEXTROSE 5%-WATER 1000 ML 1,000 ML IV PRN (17:57)
[2016-05-12] MEDS: CEFEPIME HCL 2 GM in DEXTROSE 5%-WATER 50 ML IV SCH (22:06)
[2016-05-13] MEDS: DEXTROSE 5%-WATER 1000 ML 1,000 ML IV PRN (05:06)
[2016-05-13] MEDS: LEVOTHYROXINE SODIUM 0.05 MG TABLET PO SCH (06:32)
[2016-05-13] MEDS: HEPARIN SOD (PORCINE) 5,000 UNIT/ML 1 ML SYRINGE SUBCUT SCH ×3 (06:33→21:10)
--- NOTE | 2016-05-13 10:03 | PDOC PROGRESS REPORT ---
Subjective Progress Note for:: 05/13/16 Subjective:: Patient is doing same no change Physical Exam Vital Signs: Temp Pulse Resp BP Pulse Ox 98.3 F 54 L 20 117/61 100 05/12/16 23:26 05/12/16 23:26 05/12/16 23:26 05/12/16 23:26 05/12/16 23:26 Intake & Output 05/12/16 05/13/16 05/14/16 06:59 06:59 06:59 Intake Total 2729 1742 Output Total 900 500 Balance 1829 1242 Weight 86.5 kg 93.2 kg General appearance: PRESENT: no acute distress Head exam: PRESENT: normocephalic Eye exam: PRESENT: PERRLA Mouth exam: PRESENT: neck supple Respiratory exam: PRESENT: clear to auscultation anastasia Cardiovascular exam: PRESENT: +S1, +S2 GI/Abdominal exam: PRESENT: normal bowel sounds, soft Neurological exam: PRESENT: altered Skin exam: PRESENT: normal color Results Laboratory Results: 05/08/16 07:34 05/08/16 07:34 05/06/16 03:54 CK-MB (CK-2) 0.99 Troponin I 0.091 Impressions: Chest X-Ray 05/05/16 09:02 IMPRESSION: New bilateral airspace opacification right more than left suggests pneumonia. Consider continued surveillance including follow-up in 7-12 weeks. Assessment & Plan - Diagnosis (1) Aspiration pneumonia Qualifiers: Aspiration pneumonia type: unspecified Laterality: left Lung location: lower lobe of lung Qualified Code(s): J69.0 - Pneumonitis due to inhalation of food and vomit Is this a current diagnosis for this admission?: YesPlan: Continue IV antibiotic (2) Dehydration Is this a current diagnosis for this admission?: YesPlan: Stable continues to tube feeding (3) Sacral decubitus ulcer, stage III Is this a current diagnosis for this admission?: YesPlan: Continue current current medications (4) Alzheimer disease Qualifiers: Alzheimer's disease onset: late-onset Dementia behavioral disturbance: without behavioral disturbance Qualified Code(s): G30.1 - Alzheimer's disease with late onset; F02.81 - Dementia in other diseases classified elsewhere with behavioral disturbance Is this a current diagnosis for this admission?: Yes - Time Time Spent with patient: Less than 15 minutes Medications reviewed and adjusted accordingly: Yes Anticipated discharge: Other
[2016-05-13] MEDS: CEFEPIME HCL 2 GM in DEXTROSE 5%-WATER 50 ML IV SCH (21:10)
[2016-05-14] MEDS: DEXTROSE 5%-WATER 1000 ML 1,000 ML IV PRN ×2 (02:14→22:22)
[2016-05-14] MEDS: HEPARIN SOD (PORCINE) 5,000 UNIT/ML 1 ML SYRINGE SUBCUT SCH ×3 (05:22→22:30)
[2016-05-14] MEDS: LEVOTHYROXINE SODIUM 0.05 MG TABLET PO SCH (05:22)
--- NOTE | 2016-05-14 18:54 | PDOC PROGRESS REPORT ---
Subjective Progress Note for:: 05/14/16 Subjective:: Patient seen by the bedside. Overall poor condition Physical Exam Vital Signs: Temp Pulse Resp BP Pulse Ox 97.6 F 59 L 18 117/64 97 05/14/16 16:21 05/14/16 17:00 05/14/16 17:00 05/14/16 16:21 05/14/16 17:00 Intake & Output 05/13/16 05/14/16 05/15/16 06:59 06:59 06:59 Intake Total 1742 3623 1200 Output Total 647 073 2638 Balance 1242 2763 0 Weight 93.2 kg 92.3 kg General appearance: PRESENT: no acute distress Respiratory exam: PRESENT: rales Cardiovascular exam: PRESENT: +S1, +S2 GI/Abdominal exam: PRESENT: soft Results Laboratory Results: 05/08/16 07:34 05/08/16 07:34 05/06/16 03:54 CK-MB (CK-2) 0.99 Troponin I 0.091 Impressions: Chest X-Ray 05/05/16 09:02 IMPRESSION: New bilateral airspace opacification right more than left suggests pneumonia. Consider continued surveillance including follow-up in 7-12 weeks. Assessment & Plan - Diagnosis (1) Aspiration pneumonia Qualifiers: Aspiration pneumonia type: unspecified Laterality: bilateral Lung location: unspecified part of lung Qualified Code(s): J69.0 - Pneumonitis due to inhalation of food and vomit Is this a current diagnosis for this admission?: Yes (2) Sacral decubitus ulcer, stage III Is this a current diagnosis for this admission?: Yes (3) Urethra disorder Is this a current diagnosis for this admission?: Yes (4) Urinary tract infection associated with indwelling urethral catheter Qualifiers: Encounter type: sequela Qualified Code(s): T83.511S - Infection and inflammatory reaction due to indwelling urethral catheter, sequela; N39.0 - Urinary tract infection, site not specified Is this a current diagnosis for this admission?: Yes
[2016-05-14] MEDS: CEFEPIME HCL 2 GM in DEXTROSE 5%-WATER 50 ML IV SCH (22:22)
[2016-05-15] MEDS: LEVOTHYROXINE SODIUM 0.05 MG TABLET PO SCH (05:42)
[2016-05-15] MEDS: HEPARIN SOD (PORCINE) 5,000 UNIT/ML 1 ML SYRINGE SUBCUT SCH ×3 (05:43→21:08)
--- NOTE | 2016-05-15 17:21 | PDOC PROGRESS REPORT ---
Subjective Progress Note for:: 05/15/16 Subjective:: The chest x-ray showed some improvement from admission. Chest x-ray Physical Exam Vital Signs: Temp Pulse Resp BP Pulse Ox 98.5 F 54 L 20 118/59 L 100 05/15/16 15:39 05/15/16 15:39 05/15/16 15:39 05/15/16 15:39 05/15/16 15:39 Intake & Output 05/14/16 05/15/16 05/16/16 06:59 06:59 06:59 Intake Total 3623 4303 Output Total 860 2100 Balance 2763 2203 Weight 92.3 kg 92.8 kg General appearance: PRESENT: no acute distress Eye exam: PRESENT: PERRLA Respiratory exam: PRESENT: decreased breath sounds Cardiovascular exam: PRESENT: +S1 Neurological exam: PRESENT: alert Results Laboratory Results: 05/08/16 07:34 05/08/16 07:34 05/06/16 03:54 CK-MB (CK-2) 0.99 Troponin I 0.091 Impressions: Chest X-Ray 05/14/16 00:00 IMPRESSION: Interval improvement in the previously described large opacification in the right lower hemithorax. The previously described left basilar density appears essentially unchanged. Other findings as noted above Assessment & Plan - Diagnosis (1) Aspiration pneumonia Qualifiers: Aspiration pneumonia type: unspecified Laterality: bilateral Lung location: unspecified part of lung Qualified Code(s): J69.0 - Pneumonitis due to inhalation of food and vomit Is this a current diagnosis for this admission?: Yes (2) Sacral decubitus ulcer, stage III Is this a current diagnosis for this admission?: Yes (3) Urethra disorder Is this a current diagnosis for this admission?: Yes (4) Urinary tract infection associated with indwelling urethral catheter Qualifiers: Encounter type: sequela Qualified Code(s): T83.511S - Infection and inflammatory reaction due to indwelling urethral catheter, sequela; N39.0 - Urinary tract infection, site not specified Is this a current diagnosis for this admission?: Yes
[2016-05-15] MEDS: DEXTROSE 5%-WATER 1000 ML 1,000 ML IV PRN (21:08)
[2016-05-15] MEDS: CEFEPIME HCL 2 GM in DEXTROSE 5%-WATER 50 ML IV SCH (21:08)
[2016-05-16] MEDS: LEVOTHYROXINE SODIUM 0.05 MG TABLET PO SCH (05:35)
[2016-05-16] MEDS: HEPARIN SOD (PORCINE) 5,000 UNIT/ML 1 ML SYRINGE SUBCUT SCH ×3 (05:35→21:33)
[2016-05-16] MEDS: DEXTROSE 5%-WATER 1000 ML 1,000 ML IV PRN (08:15)
--- NOTE | 2016-05-16 13:07 | PDOC CONSULTATION ---
Consultation Consult Date: 05/16/16 Attending physician:: NADINE TOM Consult reason:: Possible PEG tube dislocation History of Present Illness Admission Date/PCP: 05/05/16 15:29 History of Present Illness: I been asked to see this patient by the attending physician. Patient has an indwelling percutaneous endoscopic gastrostomy tube. Patient was in the process of getting feedings last night when the site was noted to be swollen and erythematous. Tube feeds were discontinued. The attending was called and requested a GI consult. I received a consult today in the late morning. Evaluation of the PEG tube reveals that the bumper likely due to peristalsis has migrated downwards. This actually about 8 cm between the bumper and the T piece, which I subsequently adjusted. Patient will need a contrast study to determine for adequate placement. Patient otherwise is nonverbal and cannot give any information as to any degree of discomfort or pain. Past Medical History Cardiac Medical History: Reports: Coronary Artery Disease - per EMS, Hypertension Pulmonary Medical History: Reports: Asthma, Pneumonia Endocrine Medical History: Reports: Hypothyroidism Musculoskeltal Medical History: Reports: Arthritis Psychiatric Medical History: Reports: Dementia, Depression Social History Lives with: Group Home Smoking Status: Never Smoker Frequency of Alcohol Use: None Hx Recreational Drug Use: No Hx Prescription Drug Abuse: No Family History Family History: Reviewed & Not Pertinent Parental Family History Reviewed: Yes Children Family History Reviewed: Unknown Sibling(s) Family History Reviewed.: Unknown Medication/Allergy Home Medications: Azelastine HCl 205.5 mcg NS DAILY 02/23/15 Loratadine 10 mg PO DAILY 02/23/15 Tamsulosin HCl 0.4 mg PO DAILY 02/23/15 Losartan Potassium 1 tab PO DAILY 12/26/15 Multivit-Min/FA/Lycopene/Lut [Certavite Sr-Antioxidant Tab] 1 tab PO DAILY 12/25 Polyvinyl Alcohol [Liquitears] 1 drop OU BID 12/26/15 Carvedilol [Coreg 3.125 mg Tablet] 3.125 mg PO Q12 #0 tablet 12/30/15 Furosemide [Lasix 40 mg Tablet] 40 mg PO QAM #30 tablet 12/30/15 Levothyroxine Sodium [Synthroid 0.05 mg Tablet] 0.05 mg PO Q6AM #0 tablet Docusate Sodium [Colace 100 mg Capsule] 100 mg PO BID 05/05/16 Donepezil HCl [Aricept] 10 mg PO DAILY 05/05/16 Allergies/Adverse Reactions: No Known Allergies Allergy (Verified 12/25/15 13:11) Review of Systems Constitutional: PRESENT: as per HPI Eyes: ABSENT: visual disturbances Cardiovascular: ABSENT: dyspnea on exertion, orthropnea Respiratory: ABSENT: dyspnea, hemoptysis Gastrointestinal: ABSENT: coffee ground emesis, diarrhea, hematemesis, melena Genitourinary: ABSENT: hematuria Integumentary: ABSENT: diaphoresis, lesions Neurological: ABSENT: abnormal movements, tremor(s) Endocrine: ABSENT: polyuria Hematologic/Lymphatic: ABSENT: easy bruising Physical Exam Vital Signs: Temp Pulse Resp BP Pulse Ox 98.2 F 57 L 16 136/66 H 100 05/16/16 07:45 05/16/16 07:45 05/16/16 07:45 05/16/16 07:45 05/16/16 07:45 Intake & Output 05/15/16 05/16/16 05/17/16 06:59 06:59 06:59 Intake Total 4303 2355 Output Total 2100 1820 Balance 2203 535 Weight 92.8 kg 93.5 kg General appearance: PRESENT: no acute distress Head exam: PRESENT: atraumatic, normocephalic Eye exam: PRESENT: EOMI, PERRLA. ABSENT: nystagmus, periorbital swelling, scleral icterus Mouth exam: PRESENT: moist, neck supple Throat exam: ABSENT: tonsillar exudate, tonsillogmegaly Neck exam: ABSENT: tenderness, thyromegaly, tracheostomy Respiratory exam: PRESENT: decreased breath sounds, rhonchi, symmetrical, unlabored Cardiovascular exam: PRESENT: RRR, +S1, +S2. ABSENT: rubs GI/Abdominal exam: PRESENT: diminished bowel sounds, soft. ABSENT: guarding, rebound, rigid, tenderness Extremities exam: ABSENT: joint swelling Neurological exam: PRESENT: CN II-XII grossly intact Psychiatric exam: PRESENT: appropriate affect Skin exam: ABSENT: mottled, petechiae, urticaria, vesicles Results Laboratory Results: 05/08/16 07:34 05/08/16 07:34 05/06/16 03:54 CK-MB (CK-2) 0.99 Troponin I 0.091 Impressions: Chest X-Ray 05/14/16 00:00 IMPRESSION: Interval improvement in the previously described large opacification in the right lower hemithorax. The previously described left basilar density appears essentially unchanged. Other findings as noted above Assessment & Plan - Diagnosis (1) Gastrostomy tube dysfunction Plan: We'll check a contrast study to make sure adequate placement. From the examined area did does appear to be in place with perhaps migration of the bumper which now has been readjusted. PEG tube is adequately in position then go ahead and repeat use it at the previous rate. Otherwise may need potential change of PEG. Spoke to nursing with regards to that. Orders have been placed. We'll await on findings. (2) Anemia, chronic disease Plan: Multifactorial Follow as needed - Time Time Spent: 50 to 70 Minutes
--- NOTE | 2016-05-16 20:13 | PDOC PROGRESS REPORT ---
Subjective Progress Note for:: 05/16/16 Subjective:: I spoke to the patient's daughter about his condition, there is no urologist on staff to do the suprapubic catheter placement, the pneumonia has improved. He also have pressure ulcers in both heels and the sacrum, consultation will be requested from surgery for evaluation for possible debridement Physical Exam Vital Signs: Temp Pulse Resp BP Pulse Ox 98.1 F 79 22 H 110/76 100 05/16/16 16:56 05/16/16 16:56 05/16/16 16:56 05/16/16 16:56 05/16/16 17:57 Intake & Output 05/15/16 05/16/16 05/17/16 06:59 06:59 06:59 Intake Total 4303 2355 Output Total 2100 1820 1100 Balance 2203 535 -1100 Weight 92.8 kg 93.5 kg General appearance: PRESENT: no acute distress Respiratory exam: PRESENT: clear to auscultation anastasia Cardiovascular exam: PRESENT: +S1, +S2 GI/Abdominal exam: PRESENT: soft Results Laboratory Results: 05/08/16 07:34 05/08/16 07:34 05/06/16 03:54 CK-MB (CK-2) 0.99 Troponin I 0.091 Impressions: Chest X-Ray 05/14/16 00:00 IMPRESSION: Interval improvement in the previously described large opacification in the right lower hemithorax. The previously described left basilar density appears essentially unchanged. Other findings as noted above Fluoroscopy 05/16/16 00:00 IMPRESSION: Patent gastrostomy tube. No gastric outlet obstruction Assessment & Plan - Diagnosis (1) Aspiration pneumonia Qualifiers: Aspiration pneumonia type: unspecified Laterality: bilateral Lung location: unspecified part of lung Qualified Code(s): J69.0 - Pneumonitis due to inhalation of food and vomit Is this a current diagnosis for this admission?: Yes (2) Sacral decubitus ulcer, stage III Is this a current diagnosis for this admission?: Yes (3) Urethra disorder Is this a current diagnosis for this admission?: Yes (4) Urinary tract infection associated with indwelling urethral catheter Qualifiers: Encounter type: sequela Qualified Code(s): T83.511S - Infection and inflammatory reaction due to indwelling urethral catheter, sequela; N39.0 - Urinary tract infection, site not specified Is this a current diagnosis for this admission?: Yes
[2016-05-17] MEDS: HEPARIN SOD (PORCINE) 5,000 UNIT/ML 1 ML SYRINGE SUBCUT SCH ×3 (06:31→21:09)
[2016-05-17] MEDS: LEVOTHYROXINE SODIUM 0.05 MG TABLET PO SCH (06:31)
--- NOTE | 2016-05-17 07:57 | PDOC PROGRESS REPORT ---
Subjective Progress Note for:: 05/17/16 Subjective:: contrast study reviewed, PEG tube is in the stomach cavity, no leak is noted OK to use the exterior bumper was adjusted the site needs to be cleaned to avoid infection use H2O2 and clean PEG site BID Physical Exam Vital Signs: Temp Pulse Resp BP Pulse Ox 98.7 F 57 L 15 120/66 100 05/16/16 23:57 05/16/16 23:57 05/16/16 23:57 05/16/16 23:57 05/17/16 01:22 Intake & Output 05/16/16 05/17/16 05/18/16 06:59 06:59 06:59 Intake Total 2355 2100 Output Total 1820 2700 Balance 535 -600 Weight 93.5 kg General appearance: PRESENT: no acute distress Head exam: PRESENT: normocephalic Eye exam: PRESENT: EOMI. ABSENT: scleral icterus Neck exam: ABSENT: tenderness, thyromegaly Respiratory exam: PRESENT: rhonchi, symmetrical GI/Abdominal exam: ABSENT: ascites, Camacho's sign Extremities exam: ABSENT: joint swelling Neurological exam: PRESENT: awake Skin exam: PRESENT: normal color. ABSENT: mottled, petechiae, urticaria, vesicles Results Laboratory Results: 05/08/16 07:34 05/08/16 07:34 05/06/16 03:54 CK-MB (CK-2) 0.99 Troponin I 0.091 Impressions: Chest X-Ray 05/14/16 00:00 IMPRESSION: Interval improvement in the previously described large opacification in the right lower hemithorax. The previously described left basilar density appears essentially unchanged. Other findings as noted above Fluoroscopy 05/16/16 00:00 IMPRESSION: Patent gastrostomy tube. No gastric outlet obstruction Assessment & Plan - Diagnosis (1) Gastrostomy tube dysfunction Plan: patent and within the stomach cavity OK to resume use please call if further questions (2) Anemia, chronic disease Plan: follow as needed - Time Time Spent with patient: 15-24 minutes
[2016-05-17] MEDS: DEXTROSE 5%-WATER 1000 ML 1,000 ML IV PRN (17:23)
[2016-05-18] MEDS: HEPARIN SOD (PORCINE) 5,000 UNIT/ML 1 ML SYRINGE SUBCUT SCH (05:16)
[2016-05-18] MEDS: LEVOTHYROXINE SODIUM 0.05 MG TABLET PO SCH (06:05)
--- NOTE | 2016-05-18 11:11 | PDOC CONSULTATION ---
History of Present Illness Admission Date/PCP: 05/05/16 15:29 History of Present Illness: The patient is an 89-year-old -[place] male, admitted from the intermediate on 05/05/2016 for aspiration pneumonia. He has a PEG tube. He has an indwelling Saldivar catheter with urethral breakdown. He is debilitated/ bedridden. 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 He is DO NOT RESUSCITATE. He has sacral decubitus ulcer and bilateral lateral ankle decubitus ulcers. He is able to provide any history. All elements of history of from the nurse the medical record. Surgery has been consult for bilateral lateral malleolus decubitus ulcer evaluation and debridement if needed. Past Medical History Cardiac Medical History: Reports: Coronary Artery Disease - per EMS, Hypertension Pulmonary Medical History: Reports: Asthma, Pneumonia Endocrine Medical History: Reports: Hypothyroidism Renal/ Medical History: Reports: Other - Indwelling Saldivar catheter with urethral breakdown GI Medical History: Reports: Other - Gastrostomy tube. Musculoskeltal Medical History: Reports: Arthritis Skin Medical History: Reports: Other - Sacral decubitus and bilateral lateral malleolus decubitus ulcers. Psychiatric Medical History: Reports: Dementia, Depression Past Surgical History Past Surgical History: Reports: Other - Unknown to me. Social History Information Source: [facility] Records Lives with: [place] Smoking Status: Never Smoker Frequency of Alcohol Use: None Hx Recreational Drug Use: No Hx Prescription Drug Abuse: No Family History Parental Family History Reviewed: No Children Family History Reviewed: No Sibling(s) Family History Reviewed.: No Medication/Allergy Home Medications: Azelastine HCl 205.5 mcg NS DAILY 02/23/15 Loratadine 10 mg PO DAILY 02/23/15 Tamsulosin HCl 0.4 mg PO DAILY 02/23/15 Losartan Potassium 1 tab PO DAILY 12/26/15 Multivit-Min/FA/Lycopene/Lut [Certavite Sr-Antioxidant Tab] 1 tab PO DAILY 12/25 Polyvinyl Alcohol [Liquitears] 1 drop OU BID 12/26/15 Carvedilol [Coreg 3.125 mg Tablet] 3.125 mg PO Q12 #0 tablet 12/30/15 Furosemide [Lasix 40 mg Tablet] 40 mg PO QAM #30 tablet 12/30/15 Levothyroxine Sodium [Synthroid 0.05 mg Tablet] 0.05 mg PO Q6AM #0 tablet Docusate Sodium [Colace 100 mg Capsule] 100 mg PO BID 05/05/16 Donepezil HCl [Aricept] 10 mg PO DAILY 05/05/16 Allergies/Adverse Reactions: No Known Allergies Allergy (Verified 12/25/15 13:11) Review of Systems ROS unobtainable: Due to mental status Physical Exam Vital Signs: Temp Pulse Resp BP Pulse Ox 98.0 F 60 20 147/79 H 100 05/18/16 08:02 05/18/16 08:02 05/18/16 08:02 05/18/16 08:02 05/18/16 08:02 Intake & Output 05/17/16 05/18/16 05/19/16 06:59 06:59 06:59 Intake Total 2100 5300 Output Total 2700 3150 Balance -600 2150 Weight 93.6 kg 94.8 kg General appearance: PRESENT: no acute distress Eye exam: PRESENT: other - His eyes remained closed most of the exam. Teeth exam: PRESENT: poor dentation Extremities exam: PRESENT: other - Bilateral lateral malleolus with sacral decubitus ulcer. The right side ulcer is stage II or III measuring 2.5 x 1.5 cm , surrounded by a larger stage I area measuring 5 x 5 cm. This ulcer is cleansed and debrided with Betadine Q-tips and dry gauze. It is then dressed with an Allevyn dressing. The left side ulcer is stage IV centrally measuring 4 x 2.5 cm, with a larger surrounding area of stage I ulcer measuring 6 x 6 cm. This wound is cleansed with Betadine gauze Q-tips and then debrided sharply with an 11 blade scalpel and scissors and forceps. subcutaneous tissue and fascia is excised and discarded. The wound is again cleansed with Betadine and gauze and then dressed with gauze and Kerlix roll. Neurological exam: PRESENT: awake, aphasic, other - Advanced dementia.. ABSENT : oriented to person, oriented to place, oriented to time, oriented to situation Psychiatric exam: PRESENT: other - Difficult to evaluate: Nonverbal except for some noises/grunts. Skin exam: ABSENT: jaundice Results Laboratory Results: 05/08/16 07:34 05/08/16 07:34 05/06/16 03:54 CK-MB (CK-2) 0.99 Troponin I 0.091 Impressions: Chest X-Ray 05/14/16 00:00 IMPRESSION: Interval improvement in the previously described large opacification in the right lower hemithorax. The previously described left basilar density appears essentially unchanged. Other findings as noted above Fluoroscopy 05/16/16 00:00 IMPRESSION: Patent gastrostomy tube. No gastric outlet obstruction Assessment & Plan - Diagnosis (1) Open wound of ankle, bilateral Qualifiers: Encounter type: initial encounter Qualified Code(s): S91.001A - Unspecified open wound, right ankle, initial encounter; S91.002A - Unspecified open wound, left ankle, initial encounter Is this a current diagnosis for this admission?: YesPlan: After treatment and wound care, discussed daily care regimen with the nurse. The sore on the right is dry and is amenable to Allevyn dressing. The sore on the left is still wet with some tissue in the base yet to be declared. Twice a day dressing changes with gauze for the left sore. Discussed offloading. Continue Owen boots. (2) Aspiration pneumonia Qualifiers: Aspiration pneumonia type: unspecified Laterality: left Lung location: lower lobe of lung Qualified Code(s): J69.0 - Pneumonitis due to inhalation of food and vomit Is this a current diagnosis for this admission?: Yes (3) Sacral decubitus ulcer, stage III Is this a current diagnosis for this admission?: Yes (4) Urethra disorder Is this a current diagnosis for this admission?: Yes (5) Urinary tract infection associated with indwelling urethral catheter Qualifiers: Encounter type: sequela Qualified Code(s): T83.511S - Infection and inflammatory reaction due to indwelling urethral catheter, sequela; N39.0 - Urinary tract infection, site not specified Is this a current diagnosis for this admission?: Yes
--- NOTE | 2016-05-18 12:48 | PDOC PROGRESS REPORT ---
Subjective Progress Note for:: 05/18/16 Subjective:: No overnight events. Physical Exam Vital Signs: Temp Pulse Resp BP Pulse Ox 98.0 F 60 20 147/79 H 100 05/18/16 08:02 05/18/16 08:02 05/18/16 08:02 05/18/16 08:02 05/18/16 08:02 Intake & Output 05/17/16 05/18/16 05/19/16 06:59 06:59 06:59 Intake Total 2100 5300 Output Total 2700 3150 Balance -600 2150 Weight 93.6 kg 94.8 kg General appearance: PRESENT: no acute distress Head exam: PRESENT: atraumatic, normocephalic Extremities exam: PRESENT: other - Bilateral lower extremities wounds are clean , no purulent discharge, no surrounding erythema, clean dressing was applied. Neurological exam: ABSENT: oriented to person, oriented to place, oriented to time Skin exam: PRESENT: other - The wound of the sacral decubitus ulcer is deep and a clean, there is a serious discharge, it is not purulent, no surrounding erythema or skin necrosis. Results Laboratory Results: 05/08/16 07:34 05/08/16 07:34 05/06/16 03:54 CK-MB (CK-2) 0.99 Troponin I 0.091 Impressions: Chest X-Ray 05/14/16 00:00 IMPRESSION: Interval improvement in the previously described large opacification in the right lower hemithorax. The previously described left basilar density appears essentially unchanged. Other findings as noted above Fluoroscopy 05/16/16 00:00 IMPRESSION: Patent gastrostomy tube. No gastric outlet obstruction Assessment & Plan - Diagnosis (1) Open wound of ankle, bilateral Qualifiers: Encounter type: initial encounter Qualified Code(s): S91.001A - Unspecified open wound, right ankle, initial encounter; S91.002A - Unspecified open wound, left ankle, initial encounter Is this a current diagnosis for this admission?: YesPlan: Local wound care, no surgical intervention is needed at this point, please reconsult as needed, patient need to follow up in the wound clinic after discharge (2) Sacral decubitus ulcer, stage III Is this a current diagnosis for this admission?: YesPlan: Continue local wound care, Patient likely to benefit from the wound VAC, no need for surgical debridement or interventions. Turn the patient every 2 hours. Patient will need to follow up in the wound clinic after discharge.
[2016-05-18 16:36] LABS: ABSOLUTE EOSINOPHILS # (AUTO) 0.3 10^3/uL (0.0-0.6); ABSOLUTE LYMPHOCYTES (AUTO) 2.5 10^3/uL (0.5-4.7); ABSOLUTE MONOCYTES (AUTO) 0.7 10^3/uL (0.1-1.4); ABSOLUTE NEUT (AUTO) 3.1 10^3/uL (1.7-8.2); BASOPHILS % (AUTO) 0.5 % (0-2); EOSINOPHILS % (AUTO) 4.3 % (0-6); HEMATOCRIT 28.9 % (37.9-51.0); HEMOGLOBIN 9.6 g/dL (13.5-17.0); HGB HCT DIFFERENCE -0.1; LYMPHOCYTES % (AUTO) 37.6 % (13-45); MEAN CORPUSCULAR HEMOGLOBIN 30.1 pg (27.0-33.4); MEAN CORPUSCULAR HGB CONC 33.2 g/dL (32.0-36.0); MEAN CORPUSCULAR VOLUME 91 fl (80-97); RED BLOOD COUNT 3.19 10^6/uL (4.35-5.55); RED CELL DISTRIBUTION WIDTH 16.7 % (11.5-14.0); SEGMENTED NEUTROPHILS % (AUTO) 46.6 % (42-78); WHITE BLOOD COUNT 6.6 10^3/uL (4.0-10.5)
[2016-05-18 16:53] LABS: ALANINE AMINOTRANSFERASE 35 U/L (21-72); ALBUMIN 2.2 g/dL (3.5-5.0); ALKALINE PHOSPHATASE 123 U/L (38-126); ANION GAP 5 (5-19); ASPARTATE AMINO TRANSFERASE 29 U/L (17-59); BILIRUBIN,TOTAL 0.4 mg/dL (0.2-1.3); BLOOD UREA NITROGEN 27 mg/dL (7-20); CALCIUM 8.2 mg/dL (8.4-10.2); CARBON DIOXIDE 30 mmol/L (22-30); CHLORIDE 100 mmol/L (98-107); CREATININE RESULT 0.73 mg/dL (0.52-1.25); GLUCOSE 99 mg/dL (75-110); POTASSIUM 4.8 mmol/L (3.6-5.0); SODIUM 135.2 mmol/L (137-145); TOTAL PROTEIN 6.3 g/dL (6.3-8.2)
--- NOTE | 2016-05-18 18:51 | PDOC PROGRESS REPORT ---
Subjective Progress Note for:: 05/18/16 Subjective:: Patient was seen by the bedside. The daughter, was in the room as well Physical Exam Vital Signs: Temp Pulse Resp BP Pulse Ox 98.2 F 52 L 18 138/75 H 100 05/18/16 16:36 05/18/16 16:36 05/18/16 16:36 05/18/16 16:36 05/18/16 16:36 Intake & Output 05/17/16 05/18/16 05/19/16 06:59 06:59 06:59 Intake Total 2100 5300 0 Output Total 2700 3150 700 Balance -600 2150 -700 Weight 93.6 kg 94.8 kg Eye exam: PRESENT: PERRLA Respiratory exam: PRESENT: clear to auscultation anastasia Cardiovascular exam: PRESENT: +S1, +S2 Results Laboratory Results: 05/18/16 16:26 05/18/16 16:26 05/18/16 05/18/16 16:26 16:26 WBC 6.6 RBC 3.19 L Hgb 9.6 L Hct 28.9 L MCV 91 MCH 30.1 MCHC 33.2 RDW 16.7 H Plt Count 214 Seg Neutrophils % 46.6 Lymphocytes % 37.6 Monocytes % 11.0 Eosinophils % 4.3 Basophils % 0.5 Absolute Neutrophils 3.1 Absolute Lymphocytes 2.5 Absolute Monocytes 0.7 Absolute Eosinophils 0.3 Absolute Basophils 0.0 Sodium 135.2 L Potassium 4.8 Chloride 100 Carbon Dioxide 30 Anion Gap 5 BUN 27 H Creatinine 0.73 Est GFR ( Amer) > 60 Est GFR (Non-Af Amer) > 60 Glucose 99 Calcium 8.2 L Total Bilirubin 0.4 AST 29 ALT 35 Alkaline Phosphatase 123 Total Protein 6.3 Albumin 2.2 L 05/06/16 03:54 CK-MB (CK-2) 0.99 Troponin I 0.091 Impressions: Chest X-Ray 05/14/16 00:00 IMPRESSION: Interval improvement in the previously described large opacification in the right lower hemithorax. The previously described left basilar density appears essentially unchanged. Other findings as noted above Fluoroscopy 05/16/16 00:00 IMPRESSION: Patent gastrostomy tube. No gastric outlet obstruction Assessment & Plan - Diagnosis (1) Aspiration pneumonia Qualifiers: Aspiration pneumonia type: unspecified Laterality: bilateral Lung location: unspecified part of lung Qualified Code(s): J69.0 - Pneumonitis due to inhalation of food and vomit Is this a current diagnosis for this admission?: Yes (2) Sacral decubitus ulcer, stage III Is this a current diagnosis for this admission?: Yes (3) Urethra disorder Is this a current diagnosis for this admission?: Yes (4) Urinary tract infection associated with indwelling urethral catheter Qualifiers: Encounter type: sequela Qualified Code(s): T83.511S - Infection and inflammatory reaction due to indwelling urethral catheter, sequela; N39.0 - Urinary tract infection, site not specified Is this a current diagnosis for this admission?: Yes
[2016-05-19] MEDS: LEVOTHYROXINE SODIUM 0.05 MG TABLET PO SCH (05:42)
[2016-05-19 06:26] LABS: ABSOLUTE EOSINOPHILS # (AUTO) 0.2 10^3/uL (0.0-0.6); ABSOLUTE LYMPHOCYTES (AUTO) 2.3 10^3/uL (0.5-4.7); ABSOLUTE NEUT (AUTO) 3.5 10^3/uL (1.7-8.2); BASOPHILS % (AUTO) 0.6 % (0-2); EOSINOPHILS % (AUTO) 3.5 % (0-6); HEMATOCRIT 31.3 % (37.9-51.0); HEMOGLOBIN 10.2 g/dL (13.5-17.0); HGB HCT DIFFERENCE -0.7; LYMPHOCYTES % (AUTO) 32.3 % (13-45); MEAN CORPUSCULAR HEMOGLOBIN 30.1 pg (27.0-33.4); MEAN CORPUSCULAR HGB CONC 32.6 g/dL (32.0-36.0); MEAN CORPUSCULAR VOLUME 92 fl (80-97); RED BLOOD COUNT 3.39 10^6/uL (4.35-5.55); RED CELL DISTRIBUTION WIDTH 16.7 % (11.5-14.0); SEGMENTED NEUTROPHILS % (AUTO) 49.6 % (42-78); WHITE BLOOD COUNT 7.1 10^3/uL (4.0-10.5)
[2016-05-19 06:46] LABS: ALANINE AMINOTRANSFERASE 32 U/L (21-72); ALBUMIN 2.6 g/dL (3.5-5.0); ALKALINE PHOSPHATASE 137 U/L (38-126); ANION GAP 6 (5-19); ASPARTATE AMINO TRANSFERASE 29 U/L (17-59); BILIRUBIN,TOTAL 0.4 mg/dL (0.2-1.3); BLOOD UREA NITROGEN 26 mg/dL (7-20); CALCIUM 8.4 mg/dL (8.4-10.2); CARBON DIOXIDE 31 mmol/L (22-30); CHLORIDE 99 mmol/L (98-107); GLUCOSE 94 mg/dL (75-110); POTASSIUM 4.6 mmol/L (3.6-5.0); SODIUM 136.4 mmol/L (137-145); TOTAL PROTEIN 6.9 g/dL (6.3-8.2)
[2016-05-19] MEDS: HEPARIN SOD (PORCINE) 5,000 UNIT/ML 1 ML SYRINGE SUBCUT SCH ×3 (10:31→21:07)
--- NOTE | 2016-05-19 16:03 | PDOC PROGRESS REPORT ---
Subjective Progress Note for:: 05/19/16 Subjective:: Patient is not verbal, Physical Exam Vital Signs: Temp Pulse Resp BP Pulse Ox 97.8 F 66 16 136/74 H 100 05/19/16 08:02 05/19/16 08:02 05/19/16 08:02 05/19/16 08:02 05/19/16 12:30 Intake & Output 05/18/16 05/19/16 05/20/16 06:59 06:59 06:59 Intake Total 5300 3894 Output Total 3150 2650 Balance 2150 1244 Weight 94.8 kg 97.8 kg Eye exam: PRESENT: PERRLA Respiratory exam: PRESENT: rales Cardiovascular exam: PRESENT: +S1, +S2 Results Laboratory Results: 05/19/16 05:42 05/19/16 05:42 05/18/16 05/18/16 05/19/16 16:26 16:26 05:42 WBC 6.6 7.1 RBC 3.19 L 3.39 L Hgb 9.6 L 10.2 L Hct 28.9 L 31.3 L MCV 91 92 MCH 30.1 30.1 MCHC 33.2 32.6 RDW 16.7 H 16.7 H Plt Count 214 234 Seg Neutrophils % 46.6 49.6 Lymphocytes % 37.6 32.3 Monocytes % 11.0 14.0 H Eosinophils % 4.3 3.5 Basophils % 0.5 0.6 Absolute Neutrophils 3.1 3.5 Absolute Lymphocytes 2.5 2.3 Absolute Monocytes 0.7 1.0 Absolute Eosinophils 0.3 0.2 Absolute Basophils 0.0 0.0 Sodium 135.2 L Potassium 4.8 Chloride 100 Carbon Dioxide 30 Anion Gap 5 BUN 27 H Creatinine 0.73 Est GFR ( Amer) > 60 Est GFR (Non-Af Amer) > 60 Glucose 99 Calcium 8.2 L Total Bilirubin 0.4 AST 29 ALT 35 Alkaline Phosphatase 123 Total Protein 6.3 Albumin 2.2 L 05/19/16 05:42 WBC RBC Hgb Hct MCV MCH MCHC RDW Plt Count Seg Neutrophils % Lymphocytes % Monocytes % Eosinophils % Basophils % Absolute Neutrophils Absolute Lymphocytes Absolute Monocytes Absolute Eosinophils Absolute Basophils Sodium 136.4 L Potassium 4.6 Chloride 99 Carbon Dioxide 31 H Anion Gap 6 BUN 26 H Creatinine 0.80 Est GFR ( Amer) > 60 Est GFR (Non-Af Amer) > 60 Glucose 94 Calcium 8.4 Total Bilirubin 0.4 AST 29 ALT 32 Alkaline Phosphatase 137 H Total Protein 6.9 Albumin 2.6 L 05/06/16 03:54 CK-MB (CK-2) 0.99 Troponin I 0.091 Impressions: Chest X-Ray 05/14/16 00:00 IMPRESSION: Interval improvement in the previously described large opacification in the right lower hemithorax. The previously described left basilar density appears essentially unchanged. Other findings as noted above Fluoroscopy 05/16/16 00:00 IMPRESSION: Patent gastrostomy tube. No gastric outlet obstruction Assessment & Plan - Diagnosis (1) Aspiration pneumonia Qualifiers: Aspiration pneumonia type: unspecified Laterality: bilateral Lung location: unspecified part of lung Qualified Code(s): J69.0 - Pneumonitis due to inhalation of food and vomit Is this a current diagnosis for this admission?: Yes (2) Sacral decubitus ulcer, stage III Is this a current diagnosis for this admission?: Yes (3) Urethra disorder Is this a current diagnosis for this admission?: Yes (4) Urinary tract infection associated with indwelling urethral catheter Qualifiers: Encounter type: sequela Qualified Code(s): T83.511S - Infection and inflammatory reaction due to indwelling urethral catheter, sequela; N39.0 - Urinary tract infection, site not specified Is this a current diagnosis for this admission?: Yes
[2016-05-20] MEDS: LEVOTHYROXINE SODIUM 0.05 MG TABLET PO SCH (06:03)
[2016-05-20] MEDS: DEXTROSE 5%-WATER 1000 ML 1,000 ML IV PRN ×3 (06:03→23:48)
[2016-05-20] MEDS: HEPARIN SOD (PORCINE) 5,000 UNIT/ML 1 ML SYRINGE SUBCUT SCH (06:04)
[2016-05-20] MEDS ORDERED: HEPARIN SOD (PORCINE) 5,000 UNIT/ML 1 ML SYRINGE SUBCUT SCH (15:00)
--- NOTE | 2016-05-20 20:44 | PDOC TRANSFER SUMMARY ---
General - Admit/Disc Date/PCP Admission Date/Primary Care Provider: 05/05/16 15:29 Discharge Date: 05/21/16 - Discharge Diagnosis (1) Aspiration pneumonia Is this a current diagnosis for this admission?: Yes (2) Sacral decubitus ulcer, stage III Is this a current diagnosis for this admission?: Yes (3) Urethra disorder Is this a current diagnosis for this admission?: Yes (4) Urinary tract infection associated with indwelling urethral catheter Is this a current diagnosis for this admission?: Yes - Additional Information Home Medications: Azelastine HCl 205.5 mcg NS DAILY 02/23/15 Loratadine 10 mg PO DAILY 02/23/15 Tamsulosin HCl 0.4 mg PO DAILY 02/23/15 Losartan Potassium 1 tab PO DAILY 12/26/15 Multivit-Min/FA/Lycopene/Lut [Certavite Sr-Antioxidant Tab] 1 tab PO DAILY 12/25 Polyvinyl Alcohol [Liquitears] 1 drop OU BID 12/26/15 Carvedilol [Coreg 3.125 mg Tablet] 3.125 mg PO Q12 #0 tablet 12/30/15 Levothyroxine Sodium [Synthroid 0.05 mg Tablet] 0.05 mg PO Q6AM #0 tablet Docusate Sodium [Colace 100 mg Capsule] 100 mg PO BID 05/05/16 History of Present Illness Admission Date/PCP: 05/05/16 15:29 History of Present Illness: Patient 89-year-old male [facility] with advanced [facility], he is nonverbal, bed bound, debilitated, a DO NOT RESUSCITATE status. He was admitted on when he presented with aspiration pneumonia, the chest x-ray showed a large pacification involving the inferior right hemithorax. He has indwelling Saldivar catheter associated urethral breakdown. Hospital Course Hospital Course: Patient is nonverbal, he had aspiration pneumonia that was successfully treated with IV antibiotic, subsequent chest x-ray showed complete clearance of the infiltrate. He also have multiple decubiti ulcer involving the sacrum and both ankles. He was seen by the surgeon and he had bedside excisional debridement of the sacrum decubiti ulcer and presently have a wound VAC in place. The decubiti ulcer in the ankles were also debrided. Patient is a DO NOT RESUSCITATE status with extreme debility. 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 Patient's daughter requested for multiple suctioning of the mouth and this seems to irritate the oral mucosa with areas of ulceration, she believes that the secretion in the oropharynx is affecting his breathing, which is not actually the case. Physical Exam Vital Signs: Temp Pulse Resp BP Pulse Ox 97.7 F 57 L 20 124/75 100 05/20/16 16:25 05/20/16 16:25 05/20/16 16:25 05/20/16 16:25 05/20/16 12:32 Intake & Output 05/19/16 05/20/16 05/21/16 06:59 06:59 06:59 Intake Total 3894 3883 Output Total 2650 3500 900 Balance 1244 383 -900 Weight 97.8 kg 99.8 kg General appearance: PRESENT: no acute distress Eye exam: PRESENT: PERRLA Respiratory exam: PRESENT: clear to auscultation anastasia Cardiovascular exam: PRESENT: +S1, +S2 GI/Abdominal exam: PRESENT: soft Extremities exam: PRESENT: other - Bilateral decubiti ulcer of the ankle Neurological exam: PRESENT: alert Results Laboratory Results: 05/19/16 05:42 05/19/16 05:42 05/06/16 03:54 CK-MB (CK-2) 0.99 Troponin I 0.091 Impressions: Chest X-Ray 05/14/16 00:00 IMPRESSION: Interval improvement in the previously described large opacification in the right lower hemithorax. The previously described left basilar density appears essentially unchanged. Other findings as noted above Fluoroscopy 05/16/16 00:00 IMPRESSION: Patent gastrostomy tube. No gastric outlet obstruction Plan Discharge Plan: Patient needed to be referred to a urologist for suprapubic catheter placement. He will need to follow with wound care clinic. He has wound VAC in the sacrum
[2016-05-20] MEDS: NYSTATIN 500000 UNIT/5 ML UDCUP PO SCH (23:49)
[2016-05-21] MEDS: NYSTATIN 500000 UNIT/5 ML UDCUP PO SCH ×2 (06:09→12:35)
[2016-05-21] MEDS: LEVOTHYROXINE SODIUM 0.05 MG TABLET PO SCH (06:09)
[2016-05-21] MEDS: DEXTROSE 5%-WATER 1000 ML 1,000 ML IV PRN (10:41)
[2016-05-21 16:17] VITALS: BP 109/59
--- NOTE | 2016-06-11 17:14 | Physician Advisory Note ---
Physician Advisor ProgressNote .: Pursuant to the plan for [facility], I have reviewed the medical record for this patient. Physician Advisor Statement: Asked by quality engineering manager to help w/clarifying procedure details. Reviewed chart, which indicates presence of ulcers medial & lateral to both ankles, as well as sacral decub ulcer. Discussed w/surgeon jill Operative report in 05/18/16 consult note. He remembered this case well & indicated sacral decub was stage III & mature, needing no debridement, ready for wound vac. Lt lateral ankle was mostly stage III but had area of stage IV centrally, & required the sharp excisional debridement he described in 05/18's note. This removed some subQ/fascial tissue, but did not involve tendon or bone. Rt ankle had stage II or III ulcer that only required blunt, nonexcisional debridement. An addendum will be dictated to clarify these points for coding purposes. Thanks for your help! MD Marilee
== END 2016-05-21 18:11 | DRG 166 ==
LOC: ER 08:36 → EH 14:15 → UNDOADMIN 14:15 → EH 15:29 → 4S 16:33 → EH 16:33
PROVIDERS: ADMIT Internal Medicine; ATTEND Internal Medicine
PROC: 05HP33Z Insertion of Infusion Device into Right External Jugular Vein, Percutaneous Approach (ICD-10-PCS; 2016-05-05)
PROC: 0JBR0ZZ Excision of Left Foot Subcutaneous Tissue and Fascia, Open Approach (ICD-10-PCS; principal; 2016-05-18)
PROC: 0HDMXZZ Extraction of Right Foot Skin, External Approach (ICD-10-PCS; 2016-05-18)
DX: J69.0 Pneumonitis due to inhalation of food and vomit (principal); L89.153 Pressure ulcer of sacral region, stage 3; L89.524 Pressure ulcer of left ankle, stage 4; L89.513 Pressure ulcer of right ankle, stage 3; Z43.1 Encounter for attention to gastrostomy; T83.511A Infection and inflammatory reaction due to indwelling urethral catheter, initial encounter; N39.0 Urinary tract infection, site not specified; B96.5 Pseudomonas (aeruginosa) (mallei) (pseudomallei) as the cause of diseases classified elsewhere; B96.89 Other specified bacterial agents as the cause of diseases classified elsewhere; I25.10 Atherosclerotic heart disease of native coronary artery without angina pectoris; Z66 Do not resuscitate; J45.909 Unspecified asthma, uncomplicated; F31.9 Bipolar disorder, unspecified; N34.2 Other urethritis; Y84.6 Urinary catheterization as the cause of abnormal reaction of the patient, or of later complication, without mention of misadventure at the time of the procedure; E86.0 Dehydration; G30.1 Alzheimer's disease with late onset; F02.80 Dementia in other diseases classified elsewhere, unspecified severity, without behavioral disturbance, psychotic disturbance, mood disturbance, and anxiety; D64.9 Anemia, unspecified; N40.1 Benign prostatic hyperplasia with lower urinary tract symptoms; I95.9 Hypotension, unspecified; E03.9 Hypothyroidism, unspecified; Z79.899 Other long term (current) drug therapy; Z74.01 Bed confinement status
CPT/HCPCS: 36415; 71010; 76000; 80048; 80053; 80076; 80301; 81001; 82150; 82550; 82553; 83036; 83605; 83690; 83735; 84100; 84439; 84443; 84484; 85025; 87040; 87070; 87077; 87086; 87088; 87186; 87205; 93005; 93010; 96361; 96365; 96366; 99291; G0479; J0295; J0692; J1644; J1956; J7030; J7060

== ENCOUNTER 2016-06-13 12:17 | Emergency (ER) | payer BC, MEDICAID ==
[2016-06-13] MEDS ORDERED: ATROPINE SULFATE 1% OPH SOLN 5 ML BOTTLE OD ONE (13:35)
--- NOTE | 2016-06-13 15:02 | ER Document Report ---
ED General - General Chief Complaint: Breathing Difficulty Stated Complaint: GURGLING IN THROAT TRAVEL OUTSIDE OF THE [place] IN LAST 30 DAYS: No - HPI Patient complains to provider of: copious oral secretions concern for pneumonia Notes: Patient is coming in for evaluation for possible aspiration and concern about copious oral secretions from [facility] at the request of family. 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 Patient has contractures of all 4 extremities. According to caregiver patient has had recent admission in April for aspiration pneumonia. Patient family relates the patient has no other symptoms no fevers no riders. Patient otherwise does have audible rhonchi almost consistent with a rattle sound due to secretions. - Related Data Allergies/Adverse Reactions: No Known Allergies Allergy (Verified 12/25/15 13:11) Past Medical History - Social History Smoking Status: Unknown if Ever Smoked Family History: Reviewed & Not Pertinent - Past Medical History Cardiac Medical History: Reports: Hx Coronary Artery Disease - per EMS, Hx Hypertension Pulmonary Medical History: Reports: Hx Asthma, Hx Pneumonia Endocrine Medical History: Reports: Hx Hypothyroidism Renal/ Medical History: Reports: Hx Benign Prostatic Hyperplasia Musculoskeltal Medical History: Reports Hx Arthritis Psychiatric Medical History: Reports: Hx Anxiety, Hx Dementia, Hx Depression Past Surgical History: Reports: Other - Unknown to me. Review of Systems - Review of Systems -: Yes ROS unobtainable due to patient's medical condition - Dementia Physical Exam - Vital signs Vitals: Temp Pulse Resp BP Pulse Ox 97.7 F 65 30 H 102/75 96 06/13/16 12:42 06/13/16 12:42 06/13/16 12:42 06/13/16 12:42 06/13/16 12:42 Interpretation: Normal - General General appearance: Other - Demented - HEENT Head: Normocephalic, Atraumatic Pupils: PERRL Notes: Patient with dry tongue dry lips due to chronic mouth breathing. There is a tablet underneath the patient's tongue according to family members doses supposed to help with his oral secretions. This was suctioned away. Otherwise there is no signs of any erythema swelling of airway trauma or airway obstruction examination of the oral cavity there are copious secretions that removed with deep suctioning. Patient has a very minimal gag - Respiratory Respiratory status: No respiratory distress Chest status: Nontender Breath sounds: Normal Chest palpation: Normal - Cardiovascular Rhythm: Regular Heart sounds: Normal auscultation Murmur: No - Abdominal Inspection: Normal Distension: No distension Bowel sounds: Normal Tenderness: Nontender Organomegaly: No organomegaly - Back Back: Normal, Nontender - Extremities General upper extremity: Other - Contractures of the upper extremities pulses intact General lower extremity: Other - Contractures of the lower extremities pulses intact - Neurological Neuro grossly intact: Yes - baseline per family Sensory: Normal - Skin Skin Temperature: Warm Skin Moisture: Dry Skin Color: Normal Course - Re-evaluation Re-evalutation: 06/13/16 19:40 Patient coming in for evaluation of copious oral secretions concerned about pneumonia. Chest x-ray shows no signs of aspiration. Patient secretions did resolve with administration of atropine. Instructions of use of atropine were given for her to family member to take back to [facility]. Patient case was discussed with his primary care physician who knows the patient well. Agrees with discharge back to [facility] - Vital Signs Vital signs: Temp Pulse Resp BP Pulse Ox 97.8 F 71 24 H 101/59 L 96 06/13/16 17:14 06/13/16 17:14 06/13/16 17:14 06/13/16 17:14 06/13/16 17:14 Discharge - Discharge Clinical Impression: Copious oral secretions Condition: Good Disposition: HOME-ASSISTED LIVING Additional Instructions: The patient seen today for copious oral secretions concern for possible aspiration. The patient's chest x-ray shows no signs of aspiration no signs of hypoxia and no fevers. Patient was given a dose of atropine 1% ophthalmic solution of atropine 2 drops are administered orally to help with the patient's secretions. I recommended the patient continue to use these drops 1-2 drops orally as needed every 4 hours for secretions. I will discussed this with the patient's primary care physician as well. Patient should follow-up with his primary care doctor in the next 3-5 days. Referrals: FAMILIA BLACKMON [Primary Care Provider] - Follow up as needed
[2016-06-13 17:39] VITALS: BP 101/59
== END 2016-06-13 17:11 | disposition home health service (06) ==
LOC: ER 12:17
DX: K11.7 Disturbances of salivary secretion (principal); R09.89 Other specified symptoms and signs involving the circulatory and respiratory systems; F03.90 Unspecified dementia, unspecified severity, without behavioral disturbance, psychotic disturbance, mood disturbance, and anxiety; I25.10 Atherosclerotic heart disease of native coronary artery without angina pectoris; I10 Essential (primary) hypertension; J45.909 Unspecified asthma, uncomplicated; Z66 Do not resuscitate; Z87.01 Personal history of pneumonia (recurrent); Z86.73 Personal history of transient ischemic attack (TIA), and cerebral infarction without residual deficits
CPT/HCPCS: 71010; 99285

== ENCOUNTER 2016-06-15 20:00 | Inpatient (IN) | payer MEDICARE, BC, MEDICAID ==
[2016-06-15] MEDS ORDERED: ACETAMINOPHEN 325 MG SUPP.RECT PR ONE (20:09)
--- NOTE | 2016-06-15 20:13 | ER Document Report ---
ED Respiratory Problem - General Stated Complaint: WEAKNESS Time seen by provider: 20:09 Mode of Arrival: Medic Information source: Relative - Daughter Trini TRAVEL OUTSIDE OF THE [place] IN LAST 30 DAYS: No - HPI Patient complains to provider of: Cough, Short of breath Onset: This afternoon Duration: Worse/persistent Short of Breath: Moderate Cough: Productive Sputum color: Yellow Sputum consistency: Mucoid Associated symptoms: Congestion, Cough, Difficulty breathing, Fever Similar symptoms previously: Yes Recently seen / treated by doctor: Yes Notes: Patient is an 89-year-old male resident at [facility] who was brought to emergency room by EMS for difficulty breathing, patient's daughter accompanied him to the emergency room and provided all the information as patient is nonverbal, patient has been having a rattling a gurgling cough throughout the day today, he is been short of breath, he did not eat today, he received Tylenol at 4 PM - Related Data Allergies/Adverse Reactions: No Known Allergies Allergy (Verified 12/25/15 13:11) Home Medications: Current Home Medications Amino Acids/Protein Hydrolys [Pro-Stat Profile Liquid Packet] 30 ml PEG BID 08/26 [History] Carvedilol [Coreg 3.125 mg Tablet] 3.125 mg PEG Q12 06/15/16 [History] Sennosides/Docusate 8.6-50 mg [Senna Plus Tablet] 1 tab PEG BIDP PRN 06/15/16 [ History] Tamsulosin HCl [Flomax] 0.4 mg PEG QPM 06/15/16 [History] Levothyroxine Sodium [Synthroid] 1 tab PEG DAILY 06/16/16 [History] Past Medical History - General Information source: Relative - Social History Smoking Status: Unknown if Ever Smoked Family History: Reviewed & Not Pertinent - Past Medical History Cardiac Medical History: Reports: Hx Coronary Artery Disease - per EMS, Hx Hypertension Pulmonary Medical History: Reports: Hx Asthma, Hx Pneumonia Endocrine Medical History: Reports: Hx Hypothyroidism Renal/ Medical History: Reports: Hx Benign Prostatic Hyperplasia Musculoskeltal Medical History: Reports Hx Arthritis Psychiatric Medical History: Reports: Hx Anxiety, Hx Dementia, Hx Depression Past Surgical History: Reports: Other - Unknown to me. Review of Systems - Review of Systems -: Yes ROS unobtainable due to patient's medical condition Constitutional: Fever EENT: No symptoms reported Cardiovascular: No symptoms reported Respiratory: No symptoms reported Gastrointestinal: No symptoms reported Genitourinary: No symptoms reported Skin: No symptoms reported Physical Exam - Vital signs Vitals: BP 111/83 06/15/16 20:04 Interpretation: Tachycardic, Hypoxic, Febrile - General General appearance: Other - Ill appearing In distress: Moderate - HEENT Head: Normocephalic, Atraumatic Eyes: Normal Cornea: Normal Eyelashes: Normal Pupils: PERRL Mucous membranes: Dry Pharynx: Normal Neck: Normal - Respiratory Respiratory status: Respiratory distress Chest status: Nontender Breath sounds: Decreased air movement, Productive cough, Rhonchi Chest palpation: Normal - Cardiovascular Rhythm: Regular, Tachycardia - Abdominal Inspection: Other - PEG tube in place Distension: No distension Bowel sounds: Normal Tenderness: Nontender Organomegaly: No organomegaly - Rectal Notes: Patient had a large stage IV sacral decubitus - Back Back: Normal - Extremities General upper extremity: Normal inspection General lower extremity: Other - Contracted - Neurological Bur[place]on Coma Scale Eye Opening: None [place] Coma Scale Verbal: Incomprehensible Jason Coma Scale Motor: Withdraws to Pain [place]on Coma Scale Total: 7 - Skin Skin Temperature: Warm Skin Moisture: Dry Skin Color: Normal Course - Re-evaluation Re-evalutation: 06/15/16 20:13 Patient arrived with a portable DO NOT RESUSCITATE 06/15/16 23:21 Patient was discussed with primary care provider, Dr. Santos, admission was advised, I recommended the IMCU for patient as he has unstable vital signs at the present time, however Dr. Santos recommended patient be admitted to a medical floor - Vital Signs Vital signs: Temp Pulse Resp BP Pulse Ox 28 H 96/52 L 94 06/16/16 03:01 06/16/16 03:01 06/16/16 03:01 - Laboratory Result Diagrams: 06/16/16 02:34 06/16/16 02:34 Laboratory results interpreted by me: 06/15/16 06/15/16 06/15/16 20:55 20:55 20:55 WBC 12.1 H RBC 2.88 L Hgb 8.4 L Hct 27.0 L MCHC 31.2 L RDW 18.4 H Monocytes % 1.5 L Absolute Neutrophils 9.1 H Carbonic Acid ABG pH ABG pCO2 ABG pO2 ABG O2 Saturation Sodium 169.4 H* Chloride 129 H BUN 112 H Creatinine 1.65 H Est GFR ( Amer) 48 L Est GFR (Non-Af Amer) 40 L Glucose 138 H Lactic Acid 2.2 H Alkaline Phosphatase 157 H Albumin 2.3 L Urine Protein Ur Leukocyte Esterase 06/15/16 06/15/16 20:55 21:31 WBC RBC Hgb Hct MCHC RDW Monocytes % Absolute Neutrophils Carbonic Acid 1.04 L ABG pH 7.47 H ABG pCO2 34.4 L ABG pO2 126.8 H ABG O2 Saturation 98.7 H Sodium Chloride BUN Creatinine Est GFR ( Amer) Est GFR (Non-Af Amer) Glucose Lactic Acid Alkaline Phosphatase Albumin Urine Protein 100 H Ur Leukocyte Esterase LARGE H - Diagnostic Test Radiology reviewed: Image reviewed, Reports reviewed - EKG Interpretation by Me EKG shows normal: Sinus rhythm Rate: Normal Rhythm: NSR - Transfer of Care Care transferred to following provider: Dr Santos Critical Care Note - Critical Care Note Total time excluding time spent on procedures (mins): 30 Comments: Patient hypotensive, in respiratory distress on arrival, requiring deep suction , close monitoring, and admission Discharge - Discharge Clinical Impression: Dehydration, Hypernatremia, Probable sepsis Pneumonia Qualifiers: Pneumonia type: due to unspecified organism Laterality: bilateral Lung location : lower lobe of lung Qualified Code(s): J18.9 - Pneumonia, unspecified organism Condition: Serious Disposition: ADMITTED INPATIENT Admitting Provider: Danielle Unit Admitted: Medical Floor
[2016-06-15 21:18] LABS: ABSOLUTE EOSINOPHILS # (AUTO) 0.1 10^3/uL (0.0-0.6); ABSOLUTE LYMPHOCYTES (AUTO) 2.7 10^3/uL (0.5-4.7); ABSOLUTE MONOCYTES (AUTO) 0.2 10^3/uL (0.1-1.4); ABSOLUTE NEUT (AUTO) 9.1 10^3/uL (1.7-8.2); BASOPHILS % (AUTO) 0.3 % (0-2); EOSINOPHILS % (AUTO) 0.7 % (0-6); HEMOGLOBIN 8.4 g/dL (13.5-17.0); HGB HCT DIFFERENCE -1.8; MEAN CORPUSCULAR HEMOGLOBIN 29.2 pg (27.0-33.4); MEAN CORPUSCULAR HGB CONC 31.2 g/dL (32.0-36.0); MEAN CORPUSCULAR VOLUME 94 fl (80-97); MONOCYTES % (AUTO) 1.5 % (3-13); RED BLOOD COUNT 2.88 10^6/uL (4.35-5.55); RED CELL DISTRIBUTION WIDTH 18.4 % (11.5-14.0); SEGMENTED NEUTROPHILS % (AUTO) 75.5 % (42-78); WHITE BLOOD COUNT 12.1 10^3/uL (4.0-10.5)
[2016-06-15 21:41] LABS: ALANINE AMINOTRANSFERASE 37 U/L (21-72); ALBUMIN 2.3 g/dL (3.5-5.0); ALKALINE PHOSPHATASE 157 U/L (38-126); ASPARTATE AMINO TRANSFERASE 40 U/L (17-59); BILIRUBIN,TOTAL 1.2 mg/dL (0.2-1.3); BLOOD UREA NITROGEN 112 mg/dL (7-20); CALCIUM 8.9 mg/dL (8.4-10.2); CARBON DIOXIDE 26 mmol/L (22-30); CHLORIDE 129 mmol/L (98-107); CREATININE RESULT 1.65 mg/dL (0.52-1.25); GLUCOSE 138 mg/dL (75-110); POTASSIUM 4.4 mmol/L (3.6-5.0); TOTAL PROTEIN 7.1 g/dL (6.3-8.2)
[2016-06-15 21:46] LABS: ANION GAP 14 (5-19)
[2016-06-15 21:51] LABS: SODIUM 169.4 mmol/L (137-145)
[2016-06-15] MEDS ORDERED: NORMAL SALINE 1000 ML 1,000 ML IV PRN (21:51)
[2016-06-15 21:58] LABS: ARTERIAL BLOOD BASE EXCESS 1.1 mmol/L; ARTERIAL BLOOD O2 SATURATION 98.7 % (94-98)
[2016-06-15 22:08] LABS: AMORPHOUS SEDIMENT,URINE TRACE /HPF; APPEARANCE,URINE CLOUDY; BILIRUBIN,URINE NEGATIVE (NEGATIVE); GLUCOSE, URINE NEGATIVE (NEGATIVE); KETONES,URINE NEGATIVE (NEGATIVE); LEUKOCYTE ESTERASE,URINE LARGE (NEGATIVE); NITRITE,URINE NEGATIVE (NEGATIVE); PROTEIN,URINE 100 mg/dL (NEGATIVE); URINE SPECIFIC GRAVITY 1.015; UROBILINOGEN,URINE NEGATIVE mg/dL (<2.0)
[2016-06-15] MEDS ORDERED: CEFTRIAXONE INJ 1000 MG VIAL IV ONE (22:30)
[2016-06-15] MEDS ORDERED: CEFTRIAXONE RTU 1 GM/D5W 50 ML IV ONE (22:55)
[2016-06-15] MEDS ORDERED: AZITHROMYCIN INJ 500 MG VIAL IV ONE (22:55)
[2016-06-16] MEDS: DEXTROSE 5%-WATER 1000 ML 1,000 ML IV PRN (01:10)
[2016-06-16 02:58] LABS: HEMOGLOBIN 8.7 g/dL (13.5-17.0); HGB HCT DIFFERENCE -1.9; MEAN CORPUSCULAR VOLUME 94 fl (80-97); RED CELL DISTRIBUTION WIDTH 18.5 % (11.5-14.0); WHITE BLOOD COUNT 11.9 10^3/uL (4.0-10.5)
[2016-06-16 03:03] LABS: ANION GAP 13 (5-19); BLOOD UREA NITROGEN 115 mg/dL (7-20); CALCIUM 8.6 mg/dL (8.4-10.2); CARBON DIOXIDE 27 mmol/L (22-30); CHLORIDE 129 mmol/L (98-107); CREATININE RESULT 1.69 mg/dL (0.52-1.25); GLUCOSE 128 mg/dL (75-110); POTASSIUM 4.1 mmol/L (3.6-5.0); SODIUM 168.6 mmol/L (137-145)
[2016-06-16 03:19] LABS: BAND NEUTROPHILS % (MANUAL) 6 % (3-5); BASOPHILS % (MANUAL) 1 % (0-2); EOSINOPHILS % (MANUAL) 0 % (0-6); LYMPHOCYTES % (MANUAL) 15 % (13-45); TOTAL CELLS COUNTED 100
[2016-06-16 03:21] LABS: ANISOCYTOSIS 1+; POIKILOCYTOSIS SLIGHT; TARGET CELLS SLIGHT; TOXIC GRANULATION SLIGHT
[2016-06-16] MEDS ORDERED: ACETAMINOPHEN 325 MG SUPP.RECT PR ONE ×2 (03:51→03:53)
[2016-06-16] MEDS: LEVOTHYROXINE SODIUM 0.05 MG TABLET PO SCH (06:00)
[2016-06-16] MEDS: ENOXAPARIN SODIUM INJ 40 MG/0.4 ML DISP.SYRIN SUBCUT SCH (09:40)
[2016-06-16] MEDS: CEFTRIAXONE 1 GM/D5W RTU 50 ML IV SCH (09:41)
[2016-06-16] MEDS ORDERED: LEVOFLOXACIN 750 MG/D5W RTU 750 MG/150 ML RTUPB IV SCH (10:00)
--- NOTE | 2016-06-16 10:35 | EKG REPORT ---
SEVERITY:- BORDERLINE ECG - SINUS RHYTHM BORDERLINE LEFT AXIS DEVIATION BORDERLINE T ABNORMALITIES, INFERIOR LEADS : Confirmed by: Jose Ramon Boykin 16-Jun-2016 10:34:04
[2016-06-16] MEDS ORDERED: LEVOFLOXACIN 500 MG/D5W RTU 500 MG/100 ML RTUPB IV SCH (12:00)
--- NOTE | 2016-06-16 16:24 | PDOC H&P ---
History of Present Illness Admission Date/PCP: 06/15/16 23:30 RYLAN MARIE, History of Present Illness: LILA OLIVEROS is a 89 year old male, with chronic debilitation, CVA with aphasia, non verbal resident of the halfway, he was transferred out to the emergency room on the basis of advise from her daughter because of fever, I was called from the halfway about the fact that he had a temperature of 101, I thought he could be managed in the halfway, but the daughter wants him transfer to the emergency room for evaluation. He was just admitted in this hospital and he was transferred back to halfway on 05/20/2016, he is a DO NOT RESUSCITATE status. In the emergency room he was evaluated he was found to have hypernatremia, lactic acidosis, chest x-rays suggest bibasilar densities that could represent pneumonia and inpatient care was advised by the ER provider and patient is admitted to the hospital. Patient is at increased risk of aspiration. I discussed this with the daughter, she is fond of requesting for sunctioning of the oropharynx thinking that this would prevent aspiration, but the fact is that this would not prevent aspiration ,he is aspirating because of loss of gag reflex from CVA. He has ongoing pressure ulcer in the sacral and the heel that was present on the last admission and still present on this admission.though improving Past Medical History Cardiac Medical History: Reports: Coronary Artery Disease - per EMS, Hypertension Pulmonary Medical History: Reports: Asthma, Pneumonia Endocrine Medical History: Reports: Hypothyroidism Musculoskeltal Medical History: Reports: Arthritis Psychiatric Medical History: Reports: Dementia, Depression Past Surgical History Past Surgical History: Reports: Other - Unknown to me. Social History Smoking Status: Unknown if Ever Smoked Frequency of Alcohol Use: None Hx Recreational Drug Use: No Hx Prescription Drug Abuse: No - Advance Directive Resuscitation Status: Do Not Resuscitate Family History Family History: Reviewed & Not Pertinent Parental Family History Reviewed: Yes Children Family History Reviewed: Yes Sibling(s) Family History Reviewed.: Yes Medication/Allergy Home Medications: Loratadine 10 mg PEG DAILY 02/23/15 Losartan Potassium 50 mg PEG DAILY 12/26/15 Multivit-Min/FA/Lycopene/Lut [Certavite Sr-Antioxidant Tab] 1 tab PEG DAILY Polyvinyl Alcohol [Liquitears] 1 drop OU BID 12/26/15 Amino Acids/Protein Hydrolys [Pro-Stat Profile Liquid Packet] 30 ml PEG BID 08/26 Carvedilol [Coreg 3.125 mg Tablet] 3.125 mg PEG Q12 06/15/16 Sennosides/Docusate 8.6-50 mg [Senna Plus Tablet] 1 tab PEG BIDP PRN 06/15/16 Tamsulosin HCl [Flomax] 0.4 mg PEG QPM 06/15/16 Azelastine HCl 205.5 mcg NS DAILYP PRN 06/16/16 Cyanocobalamin (Vitamin B-12) [B-12 Compliance] 1,000 mcg IJ Q30D 06/16/16 Hyoscyamine Sulfate [Anaspaz] 0.125 mg PEG Q4HP PRN 06/16/16 Levothyroxine Sodium [Synthroid] 1 tab PEG DAILY 06/16/16 Allergies/Adverse Reactions: No Known Allergies Allergy (Verified 12/25/15 13:11) Review of Systems ROS unobtainable: Due to mental status Physical Exam Vital Signs: Temp Pulse Resp BP Pulse Ox 99.0 F 66 22 H 92/50 L 97 06/16/16 08:50 06/16/16 08:50 06/16/16 08:50 06/16/16 08:50 06/16/16 15:37 Pulse Oximeter Continuous Start: 06/15/16 23: 30 Freq: RTQ4 Status: Active Document 06/16/16 15:37 [facility] (Rec: 06/16/16 15:38 [facility] [email or web address]) Pulse Oximetry Assessment Oxygen Saturation (92-100) 97 Oxygen Flow Rate (L/min) 2 Oxygen Delivery Method Nasal Cannula Equipment Usage Equipment in Use Continuous SpO2 Machine # [id number] Intake & Output 06/15/16 06/16/16 06/17/16 06:59 06:59 06:59 Weight 80.2 kg 80.2 kg General appearance: PRESENT: mild distress Eye exam: PRESENT: PERRLA Respiratory exam: PRESENT: crackles Cardiovascular exam: PRESENT: +S1 GI/Abdominal exam: PRESENT: soft Neurological exam: PRESENT: altered Results Laboratory Results: 06/16/16 02:34 06/16/16 02:34 06/16/16 06/16/16 06/16/16 02:34 02:34 02:34 WBC 11.9 H RBC 3.00 L Hgb 8.7 L Hct 28.0 L MCV 94 MCH 29.0 MCHC 31.0 L RDW 18.5 H Plt Count 149 L Seg Neutrophils % Not Reportable Lymphocytes % Not Reportable Monocytes % Not Reportable Eosinophils % Not Reportable Basophils % Not Reportable Absolute Neutrophils Not Reportable Absolute Lymphocytes Not Reportable Absolute Monocytes Not Reportable Absolute Eosinophils Not Reportable Absolute Basophils Not Reportable Sodium 168.6 H Potassium 4.1 Chloride 129 H Carbon Dioxide 27 Anion Gap 13 BUN 115 H Creatinine 1.69 H Est GFR ( Amer) 47 L Est GFR (Non-Af Amer) 38 L Glucose 128 H Lactic Acid 2.6 H Calcium 8.6 Impressions: Chest X-Ray 06/15/16 20:08 IMPRESSION: BASILAR ATELECTASIS VERSUS INFILTRATE, GREATER ON THE LEFT. SMALL LEFT PLEURAL EFFUSION. Assessment & Plan - Diagnosis (1) Pneumonia Qualifiers: Aspiration pneumonia type: unspecified Laterality: bilateral Lung location: unspecified part of lung Is this a current diagnosis for this admission?: Yes (2) Hypernatremia Is this a current diagnosis for this admission?: YesPlan: Hypernatremia is a poor prognositic sign, he will be treated with 5% dextrose (3) Decubitus ulcer of sacral region, stage 4 Is this a current diagnosis for this admission?: Yes (4) Decubitus ulcer of left heel, stage 3 Is this a current diagnosis for this admission?: Yes (5) Urinary tract infection associated with catheterization of urinary tract Qualifiers: Indwelling urinary catheter type: indwelling urethral catheter Encounter type: subsequent encounter Qualified Code(s): T83.511D - Infection and inflammatory reaction due to indwelling urethral catheter, subsequent encounter; N39.0 - Urinary tract infection, site not specified Is this a current diagnosis for this admission?: Yes (6) Urethral disorder Is this a current diagnosis for this admission?: YesPlan: Consultation will be requested from urology, he has indwelling catheter, he needs to have suprapubic catheter 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
[2016-06-17] MEDS: LEVOTHYROXINE SODIUM 0.05 MG TABLET PO SCH (05:28)
[2016-06-17 07:52] LABS: HEMATOCRIT 26.9 % (37.9-51.0); HEMOGLOBIN 8.2 g/dL (13.5-17.0); HGB HCT DIFFERENCE -2.3; MEAN CORPUSCULAR HEMOGLOBIN 28.7 pg (27.0-33.4); MEAN CORPUSCULAR HGB CONC 30.4 g/dL (32.0-36.0); MEAN CORPUSCULAR VOLUME 94 fl (80-97); RED BLOOD COUNT 2.85 10^6/uL (4.35-5.55); RED CELL DISTRIBUTION WIDTH 18.2 % (11.5-14.0); WHITE BLOOD COUNT 11.6 10^3/uL (4.0-10.5)
[2016-06-17 08:07] LABS: ANION GAP 12 (5-19); BLOOD UREA NITROGEN 115 mg/dL (7-20); CARBON DIOXIDE 27 mmol/L (22-30); CHLORIDE 124 mmol/L (98-107); CREATININE RESULT 1.66 mg/dL (0.52-1.25); GLUCOSE 173 mg/dL (75-110); POTASSIUM 4.1 mmol/L (3.6-5.0); SODIUM 163.2 mmol/L (137-145)
[2016-06-17] MEDS: DEXTROSE 5%-WATER 1000 ML 1,000 ML IV PRN (08:26)
[2016-06-17 08:47] LABS: ANISOCYTOSIS 1+; BAND NEUTROPHILS % (MANUAL) 2 % (3-5); BASOPHILS % (MANUAL) 0 % (0-2); EOSINOPHILS % (MANUAL) 6 % (0-6); LYMPHOCYTES % (MANUAL) 18 % (13-45); OVALOCYTES SLIGHT; POIKILOCYTOSIS SLIGHT; POLYCHROMASIA SLIGHT; ROULEAUX 1+; TARGET CELLS SLIGHT; TOTAL CELLS COUNTED 100; TOXIC GRANULATION 1+
[2016-06-17] MEDS: CEFTRIAXONE 1 GM/D5W RTU 50 ML IV SCH (10:54)
[2016-06-17] MEDS: ENOXAPARIN SODIUM INJ 40 MG/0.4 ML DISP.SYRIN SUBCUT SCH (10:55)
[2016-06-17] MEDS: LEVOFLOXACIN 500 MG/D5W RTU 500 MG/100 ML RTUPB IV SCH (12:23)
[2016-06-18 05:35] LABS: ANION GAP 13 (5-19); BLOOD UREA NITROGEN 105 mg/dL (7-20); CALCIUM 7.9 mg/dL (8.4-10.2); CARBON DIOXIDE 27 mmol/L (22-30); CHLORIDE 122 mmol/L (98-107); CREATININE RESULT 1.65 mg/dL (0.52-1.25); GLUCOSE 161 mg/dL (75-110); POTASSIUM 3.9 mmol/L (3.6-5.0); SODIUM 161.6 mmol/L (137-145)
[2016-06-18 06:16] LABS: ABSOLUTE EOSINOPHILS # (AUTO) 0.3 10^3/uL (0.0-0.6); ABSOLUTE LYMPHOCYTES (AUTO) 2.2 10^3/uL (0.5-4.7); ABSOLUTE MONOCYTES (AUTO) 0.3 10^3/uL (0.1-1.4); ABSOLUTE NEUT (AUTO) 10.6 10^3/uL (1.7-8.2); BASOPHILS % (AUTO) 0.2 % (0-2); EOSINOPHILS % (AUTO) 2.1 % (0-6); HEMATOCRIT 26.6 % (37.9-51.0); HEMOGLOBIN 8.4 g/dL (13.5-17.0); HGB HCT DIFFERENCE -1.4; LYMPHOCYTES % (AUTO) 16.6 % (13-45); MEAN CORPUSCULAR HEMOGLOBIN 29.2 pg (27.0-33.4); MEAN CORPUSCULAR HGB CONC 31.6 g/dL (32.0-36.0); MEAN CORPUSCULAR VOLUME 92 fl (80-97); MONOCYTES % (AUTO) 2.3 % (3-13); RED BLOOD COUNT 2.89 10^6/uL (4.35-5.55); RED CELL DISTRIBUTION WIDTH 18.2 % (11.5-14.0); SEGMENTED NEUTROPHILS % (AUTO) 78.8 % (42-78); WHITE BLOOD COUNT 13.4 10^3/uL (4.0-10.5)
[2016-06-18] MEDS: LEVOTHYROXINE SODIUM 0.05 MG TABLET PO SCH (06:29)
[2016-06-18] MEDS: ENOXAPARIN SODIUM INJ 40 MG/0.4 ML DISP.SYRIN SUBCUT SCH (10:54)
[2016-06-18] MEDS: CEFTRIAXONE 1 GM/D5W RTU 50 ML IV SCH (10:55)
[2016-06-18] MEDS: LEVOFLOXACIN 500 MG/D5W RTU 500 MG/100 ML RTUPB IV SCH (12:44)
[2016-06-18] MEDS: DEXTROSE 5%-WATER 1000 ML 1,000 ML IV PRN (16:21)
--- NOTE | 2016-06-18 19:56 | PDOC PROGRESS REPORT ---
Subjective Progress Note for:: 06/17/16 Subjective:: Patient was admitted yesterday for pneumonia, he had a rib series done yesterday and it showed fracture of the ribs, the result of the x-ray was discussed with patient's daughter, she was by the bedside Physical Exam Vital Signs: Temp Pulse Resp BP Pulse Ox 97.4 F 56 L 16 102/58 L 98 06/17/16 15:16 06/17/16 15:16 06/17/16 15:16 06/17/16 15:16 06/17/16 16:40 Pulse Oximeter Continuous Start: 06/15/16 23: 30 Freq: RTQ4 Status: Active Document 06/17/16 16:40 [facility] (Rec: 06/17/16 18:14 [facility] [email or web address]) Pulse Oximetry Assessment Oxygen Saturation (92-100) 98 Oxygen Flow Rate (L/min) 4 Oxygen Delivery Method Nasal Cannula Equipment Usage Equipment in Use Continuous SpO2 Machine # [id number] Intake & Output 06/16/16 06/17/16 06/18/16 06:59 06:59 06:59 Intake Total 850 0 Output Total 1130 500 Balance -280 -500 Weight 80.2 kg 80.2 kg General appearance: PRESENT: mild distress Eye exam: PRESENT: PERRLA Respiratory exam: PRESENT: crackles Cardiovascular exam: PRESENT: +S1, +S2 Results Laboratory Results: 06/17/16 07:31 06/17/16 07:31 06/17/16 06/17/16 07:31 07:31 WBC 11.6 H RBC 2.85 L Hgb 8.2 L Hct 26.9 L MCV 94 MCH 28.7 MCHC 30.4 L RDW 18.2 H Plt Count 145 L Seg Neutrophils % Not Reportable Lymphocytes % Not Reportable Monocytes % Not Reportable Eosinophils % Not Reportable Basophils % Not Reportable Absolute Neutrophils Not Reportable Absolute Lymphocytes Not Reportable Absolute Monocytes Not Reportable Absolute Eosinophils Not Reportable Absolute Basophils Not Reportable Sodium 163.2 H Potassium 4.1 Chloride 124 H Carbon Dioxide 27 Anion Gap 12 BUN 115 H Creatinine 1.66 H Est GFR ( Amer) 48 L Est GFR (Non-Af Amer) 39 L Glucose 173 H Calcium 8.0 L 06/16/16 10:57 Nasophary (Mrsa Only) MRSA Surveillance Culture - Final MRSA RECOVERED Impressions: Chest X-Ray 06/15/16 20:08 IMPRESSION: BASILAR ATELECTASIS VERSUS INFILTRATE, GREATER ON THE LEFT. SMALL LEFT PLEURAL EFFUSION. Ribs X-Ray 06/16/16 00:00 IMPRESSION: FRACTURE OF THE POSTERIOR LEFT 7TH RIB. POSSIBLE FRACTURE OF THE POSTERIOR LEFT 8TH RIB. Assessment & Plan - Diagnosis (1) Pneumonia Qualifiers: Aspiration pneumonia type: unspecified Laterality: bilateral Lung location: unspecified part of lung Is this a current diagnosis for this admission?: Yes (2) Hypernatremia Is this a current diagnosis for this admission?: Yes (3) Decubitus ulcer of sacral region, stage 4 Is this a current diagnosis for this admission?: Yes (4) Decubitus ulcer of left heel, stage 3 Is this a current diagnosis for this admission?: Yes (5) Urinary tract infection associated with catheterization of urinary tract Qualifiers: Indwelling urinary catheter type: indwelling urethral catheter Encounter type: subsequent encounter Qualified Code(s): T83.511D - Infection and inflammatory reaction due to indwelling urethral catheter, subsequent encounter; N39.0 - Urinary tract infection, site not specified Is this a current diagnosis for this admission?: Yes (6) Urethral disorder Is this a current diagnosis for this admission?: Yes
[2016-06-19] MEDS: LEVOTHYROXINE SODIUM 0.05 MG TABLET PO SCH (05:40)
[2016-06-19] MEDS: ENOXAPARIN SODIUM INJ 40 MG/0.4 ML DISP.SYRIN SUBCUT SCH (08:04)
[2016-06-19] MEDS: CEFTRIAXONE 1 GM/D5W RTU 50 ML IV SCH (09:09)
[2016-06-19] MEDS: LEVOFLOXACIN 500 MG/D5W RTU 500 MG/100 ML RTUPB IV SCH (12:16)
--- NOTE | 2016-06-19 17:00 | PDOC PROGRESS REPORT ---
Subjective Progress Note for:: 06/19/16 Subjective:: Patient was seen in the room with her daughter, she is concerned about the rib fracture the circumstances of the fracture of the rib is not clear. Physical Exam Vital Signs: Temp Pulse Resp BP Pulse Ox 98.9 F 62 20 100/55 L 98 06/19/16 12:00 06/19/16 12:00 06/19/16 12:00 06/19/16 12:00 06/19/16 16:00 Pulse Oximeter Continuous Start: 06/15/16 23: 30 Freq: RTQ4 Status: Active Document 06/19/16 16:00 [facility] (Rec: 06/19/16 16:09 [facility] [email or web address]) Pulse Oximetry Assessment Oxygen Saturation (92-100) 98 Oxygen Flow Rate (L/min) 3 Oxygen Delivery Method Nasal Cannula Equipment Usage Equipment in Use Continuous SpO2 Machine # [id number]-3 Intake & Output 06/18/16 06/19/16 06/20/16 06:59 06:59 06:59 Intake Total 850 3190 Output Total 1000 1250 Balance -150 1940 Weight 80.2 kg 80 kg General appearance: PRESENT: no acute distress Eye exam: PRESENT: PERRLA Respiratory exam: PRESENT: clear to auscultation anastasia Cardiovascular exam: PRESENT: +S1, +S2 GI/Abdominal exam: PRESENT: soft Neurological exam: PRESENT: alert Results Laboratory Results: 06/18/16 04:45 06/18/16 04:45 Impressions: Chest X-Ray 06/15/16 20:08 IMPRESSION: BASILAR ATELECTASIS VERSUS INFILTRATE, GREATER ON THE LEFT. SMALL LEFT PLEURAL EFFUSION. Ribs X-Ray 06/16/16 00:00 IMPRESSION: FRACTURE OF THE POSTERIOR LEFT 7TH RIB. POSSIBLE FRACTURE OF THE POSTERIOR LEFT 8TH RIB. Assessment & Plan - Diagnosis (1) Pneumonia Qualifiers: Aspiration pneumonia type: unspecified Laterality: bilateral Lung location: unspecified part of lung Is this a current diagnosis for this admission?: Yes (2) Hypernatremia Is this a current diagnosis for this admission?: Yes (3) Decubitus ulcer of sacral region, stage 4 Is this a current diagnosis for this admission?: Yes (4) Decubitus ulcer of left heel, stage 3 Is this a current diagnosis for this admission?: Yes (5) Urinary tract infection associated with catheterization of urinary tract Qualifiers: Indwelling urinary catheter type: indwelling urethral catheter Encounter type: subsequent encounter Qualified Code(s): T83.511D - Infection and inflammatory reaction due to indwelling urethral catheter, subsequent encounter; N39.0 - Urinary tract infection, site not specified Is this a current diagnosis for this admission?: Yes (6) Urethral disorder Is this a current diagnosis for this admission?: Yes
[2016-06-20] MEDS: LEVOTHYROXINE SODIUM 0.05 MG TABLET PO SCH (06:48)
--- NOTE | 2016-06-20 08:34 | PDOC CONSULTATION ---
History of Present Illness Admission Date/PCP: 06/15/16 23:30 RYLAN MARIE MD History of Present Illness: 89-year-old debilitated -Maldivian male, [facility], recurrent aspiration pneumonias, recurrent UTIs from an indwelling Saldivar catheter. 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 PEG tube. Debilitated, nonverbal, advanced dementia, stage IV sacral decubitus ulcer, bilateral lateral ankle decubitus ulcers. All history from the medical record. Surgery consulted for the sacral decubitus ulcer. The bilateral malleolus decubitus ulcers by report have improved significantly since his most recent admission at the end of May. Past Medical History Cardiac Medical History: Reports: Coronary Artery Disease - per EMS, Hypertension Pulmonary Medical History: Reports: Asthma, Pneumonia - Recurrent aspiration pneumonias Endocrine Medical History: Reports: Hypothyroidism Renal/ Medical History: Reports: Other - Recurrent UTIs. 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 Musculoskeltal Medical History: Reports: Arthritis Psychiatric Medical History: Reports: Dementia, Depression Past Surgical History Past Surgical History: Reports: Other - Unknown to me. Social History Information Source: [facility] with: [facility] Smoking Status: Never Smoker Frequency of Alcohol Use: None Hx Recreational Drug Use: No Drugs: None Hx Prescription Drug Abuse: No - Advance Directive Resuscitation Status: Do Not Resuscitate Family History Family History: Reviewed & Not Pertinent Parental Family History Reviewed: No Children Family History Reviewed: No Sibling(s) Family History Reviewed.: No Medication/Allergy Home Medications: Loratadine 10 mg PEG DAILY 02/23/15 Losartan Potassium 50 mg PEG DAILY 12/26/15 Multivit-Min/FA/Lycopene/Lut [Certavite Sr-Antioxidant Tab] 1 tab PEG DAILY Polyvinyl Alcohol [Liquitears] 1 drop OU BID 12/26/15 Amino Acids/Protein Hydrolys [Pro-Stat Profile Liquid Packet] 30 ml PEG BID 08/26 Carvedilol [Coreg 3.125 mg Tablet] 3.125 mg PEG Q12 06/15/16 Sennosides/Docusate 8.6-50 mg [Senna Plus Tablet] 1 tab PEG BIDP PRN 06/15/16 Tamsulosin HCl [Flomax] 0.4 mg PEG QPM 06/15/16 Azelastine HCl 205.5 mcg NS DAILYP PRN 06/16/16 Cyanocobalamin (Vitamin B-12) [B-12 Compliance] 1,000 mcg IJ Q30D 06/16/16 Hyoscyamine Sulfate [Anaspaz] 0.125 mg PEG Q4HP PRN 06/16/16 Levothyroxine Sodium [Synthroid] 1 tab PEG DAILY 06/16/16 Allergies/Adverse Reactions: No Known Allergies Allergy (Verified 12/25/15 13:11) Review of Systems ROS unobtainable: Due to mental status Physical Exam Vital Signs: Temp Pulse Resp BP Pulse Ox 98.2 F 69 20 102/60 96 06/19/16 23:52 06/19/16 23:52 06/19/16 23:52 06/19/16 23:52 06/20/16 04:00 Pulse Oximeter Continuous Start: 06/15/16 23: 30 Freq: RTQ4 Status: Active Document 06/20/16 04:00 [facility] (Rec: 06/20/16 04:57 [facility] [email or web address]) Pulse Oximetry Assessment Oxygen Saturation (92-100) 96 Oxygen Flow Rate (L/min) 3.0 Oxygen Delivery Method Nasal Cannula Fraction of Inspired Oxygen (FIO2) 32 Equipment Usage Equipment in Use Continuous SpO2 Machine # N-3 Intake & Output 06/19/16 06/20/16 06/21/16 06:59 06:59 06:59 Intake Total 3190 0 Output Total 1250 1300 Balance 1940 -1300 Weight 80 kg 91.8 kg General appearance: PRESENT: other - Demented, nonverbal, NG tube, indwelling Saldivar catheter, diaper. Not able to follow directions. Head exam: PRESENT: normocephalic Eye exam: PRESENT: other - Not able to follow directions for extraocular movement test, but does have a conjugate gaze. Neck exam: ABSENT: JVD, lymphadenopathy, tenderness, thyromegaly Respiratory exam: PRESENT: other - Coarse breath sounds bilaterally Cardiovascular exam: PRESENT: RRR GI/Abdominal exam: PRESENT: soft, other - G-tube in place. Site is okay.. ABSENT: distended, tenderness Rectal exam: PRESENT: other - Sacral decubitus ulcer Allevyn dressing is removed. He has stool contaminating the wound underneath the dressing. Stage IV sacral decubitus ulcer measuring 6.5 cm in diameter with undermining ranging from 3.5 cm up to 10 cm. He also has a surrounding area of stage II ulcer on the skin approximately 20 cm across. The wound is scrubbed with dry gauze. Sloughed skin and tissue is removed. Further down on the left hip is a 9 x 4 cm stage II blister. Gentrourinary exam: PRESENT: indwelling catheter - Penis is split from indwelling Saldivar catheter. Extremities exam: PRESENT: other - Right le ulcers. Lateral malleolus ulcer measuring 1.5 cm in diameter, stage II. Lateral fifth toe stage I ulcer measuring 1.5 cm. Left leg: For ulcers. Medial first metatarsal head ulcer, 1 cm in diameter, stage I. Lateral malleolus ulcer, 3 x 2 cm, stage III. Lateral left cueva ulcer, 3 x 1 cm, stage II. More proximal lateral left cueva ulcer, 2 cm diameter, stage II. Neurological exam: PRESENT: awake, motor sensory deficit, aphasic, other - Demented, nonverbal, unable to follow directions.. ABSENT: oriented to person, oriented to place, oriented to time, oriented to situation Skin exam: PRESENT: other - See rectal and extremities for description of multitude of ulcers. The bilateral lower extremity ulcers appear noninfected. The sacral decubitus ulcer has surrounding erythema, not clear if this is due to pressure or cellulitis. Results Laboratory Results: 06/18/16 04:45 06/18/16 04:45 Impressions: Chest X-Ray 06/15/16 20:08 IMPRESSION: BASILAR ATELECTASIS VERSUS INFILTRATE, GREATER ON THE LEFT. SMALL LEFT PLEURAL EFFUSION. Ribs X-Ray 06/16/16 00:00 IMPRESSION: FRACTURE OF THE POSTERIOR LEFT 7TH RIB. POSSIBLE FRACTURE OF THE POSTERIOR LEFT 8TH RIB. Assessment & Plan - Diagnosis (1) Decubitus ulcer of left heel, stage 3 Is this a current diagnosis for this admission?: Yes (2) Decubitus ulcer of sacral region, stage 4 Is this a current diagnosis for this admission?: YesPlan: Poor prognosis given the patient's overall debility and dementia. Recommend offloading with every hour repositioning from side to side. Stage IV decubitus ulcer appears worse than last hospital stay. No obvious debridement need be done at this time, but some of the tissue has yet to declare itself. Minimum of every 12 dressing changes, plus as needed when soiled. Discussed with the oncoming surgeon. The bilateral lower extremity ulcers are actually improved compared to last hospital stay. Recommend continuing his propho/sue boots. (3) Aspiration pneumonia Qualifiers: Aspiration pneumonia type: unspecified Laterality: left Lung location: lower lobe of lung Qualified Code(s): J69.0 - Pneumonitis due to inhalation of food and vomit Is this a current diagnosis for this admission?: Yes
[2016-06-20] MEDS: ENOXAPARIN SODIUM INJ 40 MG/0.4 ML DISP.SYRIN SUBCUT SCH (10:25)
[2016-06-20] MEDS ORDERED: LORAZEPAM INJ 2 MG/1 ML VIAL IV ONE (14:05)
[2016-06-20] MEDS: CEFTRIAXONE 1 GM/D5W RTU 50 ML IV SCH (15:36)
--- NOTE | 2016-06-20 17:08 | PDOC PROGRESS REPORT ---
Subjective Progress Note for:: 06/20/16 Subjective:: nad Physical Exam Vital Signs: Temp Pulse Resp BP Pulse Ox 97.7 F 63 22 H 96/56 L 93 06/20/16 16:00 06/20/16 16:00 06/20/16 16:00 06/20/16 16:00 06/20/16 16:00 Pulse Oximeter Continuous Start: 06/15/16 23: 30 Freq: RTQ4 Status: Active Document 06/20/16 16:00 [facility] (Rec: 06/20/16 16:58 [facility] [email or web address]) Pulse Oximetry Assessment Oxygen Saturation (92-100) 93 Oxygen Flow Rate (L/min) 3 Oxygen Delivery Method Nasal Cannula Equipment Usage Equipment in Use Continuous SpO2 Machine # n-3 Intake & Output 06/19/16 06/20/16 06/21/16 06:59 06:59 06:59 Intake Total 3190 0 0 Output Total 1250 1300 200 Balance 1940 -1300 -200 Weight 80 kg 91.8 kg Rectal exam: PRESENT: other - Stage IV sacral decubitus ulcer measuring about 7 cm in size with undermining ranging from 3-10 cm. Surrounding area with stage II ulcer. No purulent drainage. No necrotic tissue requiring debridement. Results Laboratory Results: 06/18/16 04:45 06/18/16 04:45 Impressions: Chest X-Ray 06/15/16 20:08 IMPRESSION: BASILAR ATELECTASIS VERSUS INFILTRATE, GREATER ON THE LEFT. SMALL LEFT PLEURAL EFFUSION. Ribs X-Ray 06/16/16 00:00 IMPRESSION: FRACTURE OF THE POSTERIOR LEFT 7TH RIB. POSSIBLE FRACTURE OF THE POSTERIOR LEFT 8TH RIB. Guidance Fluoroscopy 06/20/16 00:00 IMPRESSION: SUCCESSFUL PLACEMENT OF A 5 FR DUAL LUMEN 32 CM PICC IN THE right basilic VEIN. Interventional Vascular Procedure 06/20/16 00:00 IMPRESSION: SUCCESSFUL PLACEMENT OF A 5 FR DUAL LUMEN 32 CM PICC IN THE right basilic VEIN. PICC Line Insertion 06/20/16 00:00 IMPRESSION: SUCCESSFUL PLACEMENT OF A 5 FR DUAL LUMEN 32 CM PICC IN THE right basilic VEIN. Assessment & Plan - Diagnosis (1) Decubitus ulcer of sacral region, stage 4 Is this a current diagnosis for this admission?: YesPlan: Continue local wound care and offloading a pressure as described by Dr. Salcido in his consultation note. I do not see any role for surgical debridement at this time.
--- NOTE | 2016-06-20 20:46 | PDOC PROGRESS REPORT ---
Subjective Progress Note for:: 06/20/16 Subjective:: Patient was seen by the bedside, the case was discussed with the daughter, he had a PICC line today because of IV access problem Physical Exam Vital Signs: Temp Pulse Resp BP Pulse Ox 98.3 F 64 18 103/51 L 95 06/20/16 19:46 06/20/16 19:46 06/20/16 19:46 06/20/16 19:46 06/20/16 20:19 Pulse Oximeter Continuous Start: 06/15/16 23: 30 Freq: RTQ4 Status: Active Document 06/20/16 20:19 [facility] (Rec: 06/20/16 20:19 [facility] [email or web address]) Pulse Oximetry Assessment Oxygen Saturation (92-100) 95 Oxygen Flow Rate (L/min) 3 Oxygen Delivery Method Nasal Cannula Fraction of Inspired Oxygen (FIO2) 32 Equipment Usage Equipment in Use Continuous SpO2 Machine # 3 Intake & Output 06/19/16 06/20/16 06/21/16 06:59 06:59 06:59 Intake Total 3190 0 0 Output Total 1250 1300 700 Balance 1940 -1300 -700 Weight 80 kg 91.8 kg General appearance: PRESENT: no acute distress Eye exam: PRESENT: PERRLA Respiratory exam: PRESENT: clear to auscultation anastasia Cardiovascular exam: PRESENT: +S1, +S2 Neurological exam: PRESENT: alert Results Laboratory Results: 06/18/16 04:45 06/18/16 04:45 Impressions: Chest X-Ray 06/15/16 20:08 IMPRESSION: BASILAR ATELECTASIS VERSUS INFILTRATE, GREATER ON THE LEFT. SMALL LEFT PLEURAL EFFUSION. Ribs X-Ray 06/16/16 00:00 IMPRESSION: FRACTURE OF THE POSTERIOR LEFT 7TH RIB. POSSIBLE FRACTURE OF THE POSTERIOR LEFT 8TH RIB. Guidance Fluoroscopy 06/20/16 00:00 IMPRESSION: SUCCESSFUL PLACEMENT OF A 5 FR DUAL LUMEN 32 CM PICC IN THE right basilic VEIN. Interventional Vascular Procedure 06/20/16 00:00 IMPRESSION: SUCCESSFUL PLACEMENT OF A 5 FR DUAL LUMEN 32 CM PICC IN THE right basilic VEIN. PICC Line Insertion 06/20/16 00:00 IMPRESSION: SUCCESSFUL PLACEMENT OF A 5 FR DUAL LUMEN 32 CM PICC IN THE right basilic VEIN. Assessment & Plan - Diagnosis (1) Pneumonia Qualifiers: Aspiration pneumonia type: unspecified Laterality: bilateral Lung location: unspecified part of lung Is this a current diagnosis for this admission?: Yes (2) Hypernatremia Is this a current diagnosis for this admission?: Yes (3) Decubitus ulcer of sacral region, stage 4 Is this a current diagnosis for this admission?: Yes (4) Decubitus ulcer of left heel, stage 3 Is this a current diagnosis for this admission?: Yes (5) Urinary tract infection associated with catheterization of urinary tract Qualifiers: Indwelling urinary catheter type: indwelling urethral catheter Encounter type: subsequent encounter Qualified Code(s): T83.511D - Infection and inflammatory reaction due to indwelling urethral catheter, subsequent encounter; N39.0 - Urinary tract infection, site not specified Is this a current diagnosis for this admission?: Yes (6) Urethral disorder Is this a current diagnosis for this admission?: Yes
[2016-06-20] MEDS: NORMAL SALINE 10 ML SDV (SCHEDULED) IV SCH (22:55)
[2016-06-20] MEDS: DEXTROSE 5%-WATER 1000 ML 1,000 ML IV PRN (23:03)
[2016-06-21] MEDS: LEVOTHYROXINE SODIUM 0.05 MG TABLET PO SCH (05:57)
[2016-06-21] MEDS: ENOXAPARIN SODIUM INJ 40 MG/0.4 ML DISP.SYRIN SUBCUT SCH (09:10)
[2016-06-21] MEDS: NORMAL SALINE 10 ML SDV (SCHEDULED) IV SCH ×2 (12:50→21:39)
[2016-06-21] MEDS: MORPHINE SULFATE 10 MG/ML INJ IV PRN ×3 (12:51→21:39)
[2016-06-21] MEDS: CEFTRIAXONE 1 GM/D5W RTU 50 ML IV SCH (12:51)
--- NOTE | 2016-06-21 15:25 | PDOC PROGRESS REPORT ---
Subjective Progress Note for:: 06/21/16 Subjective:: Patient's condition is about the same, he is non-verbal Physical Exam Vital Signs: Temp Pulse Resp BP Pulse Ox 98.3 F 64 21 H 117/59 L 94 06/21/16 11:24 06/21/16 11:24 06/21/16 11:24 06/21/16 11:24 06/21/16 13:20 Pulse Oximeter Continuous Start: 06/15/16 23: 30 Freq: RTQ4 Status: Active Document 06/21/16 13:20 [facility] [place]Rec: 06/21/16 13:37 [facility] [email or web address]) Pulse Oximetry Assessment Oxygen Saturation (92-100) 94 Oxygen Flow Rate (L/min) 3 Oxygen Delivery Method Nasal Cannula Fraction of Inspired Oxygen (FIO2) 32 Equipment Usage Equipment in Use Continuous SpO2 Machine # N 3 Intake & Output 06/20/16 06/21/16 06/22/16 06:59 06:59 06:59 Intake Total 0 0 Output Total 1300 1300 Balance -1300 -1300 Weight 91.8 kg Eye exam: PRESENT: PERRLA Respiratory exam: PRESENT: decreased breath sounds Cardiovascular exam: PRESENT: +S1 GI/Abdominal exam: PRESENT: soft Neurological exam: PRESENT: alert Results Laboratory Results: 06/18/16 04:45 06/18/16 04:45 06/16/16 02:34 Blood Blood Culture - Final NO GROWTH IN 5 DAYS Impressions: Chest X-Ray 06/15/16 20:08 IMPRESSION: BASILAR ATELECTASIS VERSUS INFILTRATE, GREATER ON THE LEFT. SMALL LEFT PLEURAL EFFUSION. Ribs X-Ray 06/16/16 00:00 IMPRESSION: FRACTURE OF THE POSTERIOR LEFT 7TH RIB. POSSIBLE FRACTURE OF THE POSTERIOR LEFT 8TH RIB. Guidance Fluoroscopy 06/20/16 00:00 IMPRESSION: SUCCESSFUL PLACEMENT OF A 5 FR DUAL LUMEN 32 CM PICC IN THE right basilic VEIN. Interventional Vascular Procedure 06/20/16 00:00 IMPRESSION: SUCCESSFUL PLACEMENT OF A 5 FR DUAL LUMEN 32 CM PICC IN THE right basilic VEIN. PICC Line Insertion 06/20/16 00:00 IMPRESSION: SUCCESSFUL PLACEMENT OF A 5 FR DUAL LUMEN 32 CM PICC IN THE right basilic VEIN. Assessment & Plan - Diagnosis (1) Pneumonia Qualifiers: Aspiration pneumonia type: unspecified Laterality: bilateral Lung location: unspecified part of lung Is this a current diagnosis for this admission?: Yes (2) Hypernatremia Is this a current diagnosis for this admission?: Yes (3) Decubitus ulcer of sacral region, stage 4 Is this a current diagnosis for this admission?: Yes (4) Decubitus ulcer of left heel, stage 3 Is this a current diagnosis for this admission?: Yes (5) Urinary tract infection associated with catheterization of urinary tract Qualifiers: Indwelling urinary catheter type: indwelling urethral catheter Encounter type: subsequent encounter Qualified Code(s): T83.511D - Infection and inflammatory reaction due to indwelling urethral catheter, subsequent encounter; N39.0 - Urinary tract infection, site not specified Is this a current diagnosis for this admission?: Yes (6) Urethral disorder Is this a current diagnosis for this admission?: Yes
[2016-06-22] MEDS: MORPHINE SULFATE 10 MG/ML INJ IV PRN ×4 (03:30→22:53)
[2016-06-22] MEDS: DEXTROSE 5%-WATER 1000 ML 1,000 ML IV PRN ×2 (05:30→18:13)
[2016-06-22] MEDS: LEVOTHYROXINE SODIUM 0.05 MG TABLET PO SCH (05:30)
[2016-06-22] MEDS: ENOXAPARIN SODIUM INJ 40 MG/0.4 ML DISP.SYRIN SUBCUT SCH (07:36)
[2016-06-22] MEDS: CEFTRIAXONE 1 GM/D5W RTU 50 ML IV SCH (10:34)
[2016-06-22] MEDS: NORMAL SALINE 10 ML SDV (SCHEDULED) IV SCH ×2 (10:36→22:51)
--- NOTE | 2016-06-22 13:00 | PDOC PROGRESS REPORT ---
Subjective Progress Note for:: 06/22/16 Subjective:: Reported concern about constipation. No BM since 06/17/16. Remain on enteral tube feeding. Patient on IV morphine for pain management due too several pressure ulcers on lower extremities and sacral region. No reported difficulty with breathing or observed expressed chest pain. Remain on supplemental oxygen via nasal cannula. No reported fever or vomiting. Physical Exam Vital Signs: Temp Pulse Resp BP Pulse Ox 98.8 F 61 12 106/55 L 94 06/22/16 08:08 06/22/16 08:08 06/22/16 08:08 06/22/16 08:08 06/22/16 08:33 Pulse Oximeter Continuous Start: 06/15/16 23: 30 Freq: RTQ4 Status: Active Document 06/22/16 08:33 [facility] (Rec: 06/22/16 08:33 [facility] [email or web address]) Pulse Oximetry Assessment Oxygen Saturation (92-100) 94 Oxygen Flow Rate (L/min) 3 Oxygen Delivery Method Nasal Cannula Equipment Usage Equipment in Use Continuous SpO2 Machine # 3 Intake & Output 06/21/16 06/22/16 06/23/16 06:59 06:59 06:59 Intake Total 0 3239 297 Output Total 1300 1200 Balance -1300 2039 297 Weight 85.3 kg General appearance: PRESENT: other - No appropriate verbal interaction due to advance dementia Head exam: PRESENT: atraumatic - with facial muscle wasting Eye exam: PRESENT: conjunctiva pink, EOMI, PERRLA Mouth exam: PRESENT: moist Teeth exam: PRESENT: poor dentation Respiratory exam: PRESENT: decreased breath sounds - at lung bases. ABSENT: accessory muscle use, chest wall tenderness, clear to auscultation anastasia, crackles , prolonged expiratory phas, rales, retraction, rhonchi, stridor, symmetrical, tachypnea, unlabored, wheezes, other Cardiovascular exam: PRESENT: RRR. ABSENT: diastolic murmur, rubs, systolic murmur GI/Abdominal exam: PRESENT: other - peg site satisfactory.. ABSENT: ascites, diminished bowel sounds, distended, firm, guarding, hernia, hyperactive bowel sounds, hypoactive bowel sounds, mass, Camacho's sign, normal bowel sounds, organolmegaly, rebound, rigid, soft, tenderness Gentrourinary exam: PRESENT: indwelling catheter Extremities exam: PRESENT: full ROM, pedal edema - particularly to upper extremities Musculoskeletal exam: PRESENT: deformity - from joint involvement with arthritis , other - generalized muslce wasting Neurological exam: PRESENT: altered - related to dementia Psychiatric exam: PRESENT: appropriate affect Skin exam: PRESENT: dry, warm, other - multiple and several different stages involved lower extremities and sacral region pressure ulcers. Results Laboratory Results: 06/18/16 04:45 06/18/16 04:45 Impressions: Chest X-Ray 06/15/16 20:08 IMPRESSION: BASILAR ATELECTASIS VERSUS INFILTRATE, GREATER ON THE LEFT. SMALL LEFT PLEURAL EFFUSION. Ribs X-Ray 06/16/16 00:00 IMPRESSION: FRACTURE OF THE POSTERIOR LEFT 7TH RIB. POSSIBLE FRACTURE OF THE POSTERIOR LEFT 8TH RIB. Guidance Fluoroscopy 06/20/16 00:00 IMPRESSION: SUCCESSFUL PLACEMENT OF A 5 FR DUAL LUMEN 32 CM PICC IN THE right basilic VEIN. Interventional Vascular Procedure 06/20/16 00:00 IMPRESSION: SUCCESSFUL PLACEMENT OF A 5 FR DUAL LUMEN 32 CM PICC IN THE right basilic VEIN. PICC Line Insertion 06/20/16 00:00 IMPRESSION: SUCCESSFUL PLACEMENT OF A 5 FR DUAL LUMEN 32 CM PICC IN THE right basilic VEIN. Assessment & Plan - Diagnosis (1) Decubitus ulcer of left heel, stage 3 Is this a current diagnosis for this admission?: YesPlan: See covering physician orders. I will add Beneprotein supplementation to his enteral feeding regimen. (2) Decubitus ulcer of sacral region, stage 4 Is this a current diagnosis for this admission?: YesPlan: See covering physician orders. I will add Beneprotein supplementation to his enteral feeding regimen (3) Dehydration Plan: Continue IV fluid support and enteral feeding flushes. He may benefit from less concentrated enteral formula with increase free water flushes. (4) Hypernatremia Is this a current diagnosis for this admission?: YesPlan: He will benefit from increase free water administration via PEG. Maintain on IV fluid support. (5) Urinary tract infection associated with catheterization of urinary tract Qualifiers: Indwelling urinary catheter type: indwelling urethral catheter Encounter type: subsequent encounter Qualified Code(s): T83.511D - Infection and inflammatory reaction due to indwelling urethral catheter, subsequent encounter; N39.0 - Urinary tract infection, site not specified Is this a current diagnosis for this admission?: Yes (6) Protein-calorie malnutrition, severe Is this a current diagnosis for this admission?: YesPlan: See covering physician orders. I will add Beneprotein supplementation to his enteral feeding regimen (7) Constipation Is this a current diagnosis for this admission?: NoPlan: I will add Lactulose 10mg via PEG daily to hold for diarrhea. - Time Time Spent with patient: 25-34 minutes Medications reviewed and adjusted accordingly: Yes Anticipated discharge: SNF - Inpatient Certification Medical Necessity: Need Close Monitoring Due to Risk of Patient Decompensation, Need For IV Fluids, Need for IV Antibiotics, Risk of Complication if Not Cared For in Hospital, Risk of Diagnosis Which Will Require Inpatient Eval/Care/ Monitoring Post Hospital Care: D/C or Transfer Summary - Plan Summary Plan Summary: See covering physician orders for details.
[2016-06-22] MEDS: LACTULOSE SYRUP 20 GM/30 ML UDCUP PO SCH (22:53)
[2016-06-23] MEDS: LEVOTHYROXINE SODIUM 0.05 MG TABLET PO SCH (05:40)
[2016-06-23] MEDS: MORPHINE SULFATE 10 MG/ML INJ IV PRN ×3 (05:40→22:23)
[2016-06-23] MEDS: ENOXAPARIN SODIUM INJ 40 MG/0.4 ML DISP.SYRIN SUBCUT SCH (07:34)
[2016-06-23 08:57] LABS: ABSOLUTE EOSINOPHILS # (AUTO) 0.3 10^3/uL (0.0-0.6); ABSOLUTE LYMPHOCYTES (AUTO) 2.7 10^3/uL (0.5-4.7); ABSOLUTE MONOCYTES (AUTO) 0.4 10^3/uL (0.1-1.4); ABSOLUTE NEUT (AUTO) 6.8 10^3/uL (1.7-8.2); BASOPHILS % (AUTO) 0.4 % (0-2); EOSINOPHILS % (AUTO) 2.9 % (0-6); HEMATOCRIT 23.5 % (37.9-51.0); HGB HCT DIFFERENCE -1.3; LYMPHOCYTES % (AUTO) 26.1 % (13-45); MEAN CORPUSCULAR HEMOGLOBIN 29.6 pg (27.0-33.4); MEAN CORPUSCULAR HGB CONC 31.6 g/dL (32.0-36.0); MEAN CORPUSCULAR VOLUME 94 fl (80-97); MONOCYTES % (AUTO) 4.2 % (3-13); RED BLOOD COUNT 2.51 10^6/uL (4.35-5.55); RED CELL DISTRIBUTION WIDTH 18.4 % (11.5-14.0); SEGMENTED NEUTROPHILS % (AUTO) 66.4 % (42-78); WHITE BLOOD COUNT 10.2 10^3/uL (4.0-10.5)
[2016-06-23 09:03] LABS: HEMOGLOBIN 7.4 g/dL (13.5-17.0)
[2016-06-23 09:16] LABS: ALANINE AMINOTRANSFERASE 35 U/L (21-72); ALBUMIN 1.6 g/dL (3.5-5.0); ALKALINE PHOSPHATASE 139 U/L (38-126); ANION GAP 8 (5-19); ASPARTATE AMINO TRANSFERASE 31 U/L (17-59); BILIRUBIN,TOTAL 1.1 mg/dL (0.2-1.3); BLOOD UREA NITROGEN 72 mg/dL (7-20); CALCIUM 7.4 mg/dL (8.4-10.2); CARBON DIOXIDE 26 mmol/L (22-30); CHLORIDE 114 mmol/L (98-107); CREATININE RESULT 1.23 mg/dL (0.52-1.25); GLUCOSE 88 mg/dL (75-110); POTASSIUM 4.7 mmol/L (3.6-5.0); SODIUM 147.6 mmol/L (137-145); TOTAL PROTEIN 6.2 g/dL (6.3-8.2)
[2016-06-23] MEDS: CEFTRIAXONE 1 GM/D5W RTU 50 ML IV SCH (09:41)
[2016-06-23] MEDS: DEXTROSE 5%-WATER 1000 ML 1,000 ML IV PRN (09:42)
[2016-06-23] MEDS: NORMAL SALINE 10 ML SDV (SCHEDULED) IV SCH ×2 (09:42→22:24)
[2016-06-23] MEDS ORDERED: NORMAL SALINE 250 ML IV PRN ×2 (11:14)
--- NOTE | 2016-06-23 11:29 | PDOC PROGRESS REPORT ---
Subjective Progress Note for:: 06/23/16 Subjective:: Remain on enteral tube feeding but currently on hold due to residual volume at 70cc. No reported difficulty with breathing or observed expressed chest pain. No reported fever or vomiting. Patient on IV morphine for pain management due too several pressure ulcers on lower extremities and sacral region. Remain on supplemental oxygen via nasal cannula. There is reported drop in his hemoglobin this AM. I discussed with daughter and agreeable with PRBC transfusion. Physical Exam Vital Signs: Temp Pulse Resp BP Pulse Ox 97.5 F 62 12 102/61 94 06/23/16 08:00 06/23/16 08:00 06/23/16 08:00 06/23/16 08:00 06/23/16 08:00 Pulse Oximeter Continuous Start: 06/15/16 23: 30 Freq: RTQ4 Status: Active Document 06/23/16 04:00 SFL (Rec: 06/23/16 05:52 SFL [email or web address]) Pulse Oximetry Assessment Oxygen Saturation (92-100) 97 Oxygen Flow Rate (L/min) 2 Oxygen Delivery Method Nasal Cannula Equipment Usage Equipment in Use Continuous SpO2 Machine # 3 Intake & Output 06/22/16 06/23/16 06/24/16 06:59 06:59 06:59 Intake Total 3239 3131 Output Total 1200 460 Balance 2039 2671 Weight 85.3 kg 92.9 kg Physical Exam: General appearance: PRESENT: other - No appropriate verbal interaction due to advance dementia Head exam: PRESENT: atraumatic - with facial muscle wasting Eye exam: PRESENT: conjunctiva pink, EOMI, PERRLA Mouth exam: PRESENT: moist Teeth exam: PRESENT: poor dentation Respiratory exam: PRESENT: decreased breath sounds - at lung bases. ABSENT: accessory muscle use, chest wall tenderness, clear to auscultation anastasia, crackles , prolonged expiratory phas, rales, retraction, rhonchi, stridor, symmetrical, tachypnea, unlabored, wheezes, other Cardiovascular exam: PRESENT: RRR. ABSENT: diastolic murmur, rubs, systolic murmur GI/Abdominal exam: PRESENT: other - peg site satisfactory.. ABSENT: ascites, diminished bowel sounds, distended, firm, guarding, hernia, hyperactive bowel sounds, hypoactive bowel sounds, mass, Camacho's sign, normal bowel sounds, organolmegaly, rebound, rigid, soft, tenderness Gentrourinary exam: PRESENT: indwelling catheter Extremities exam: PRESENT: full ROM, pedal edema - particularly to upper extremities Musculoskeletal exam: PRESENT: deformity - from joint involvement with arthritis , other - generalized muscle wasting Neurological exam: PRESENT: altered - related to dementia Psychiatric exam: PRESENT: appropriate affect Skin exam: PRESENT: dry, warm, other - multiple and several different stages involved lower extremities and sacral region pressure ulcers. Results Laboratory Results: 06/23/16 08:12 06/23/16 08:12 06/23/16 06/23/16 08:12 08:12 WBC 10.2 RBC 2.51 L Hgb 7.4 L Hct 23.5 L MCV 94 MCH 29.6 MCHC 31.6 L RDW 18.4 H Plt Count 130 L Seg Neutrophils % 66.4 Lymphocytes % 26.1 Monocytes % 4.2 Eosinophils % 2.9 Basophils % 0.4 Absolute Neutrophils 6.8 Absolute Lymphocytes 2.7 Absolute Monocytes 0.4 Absolute Eosinophils 0.3 Absolute Basophils 0.0 Sodium 147.6 H Potassium 4.7 Chloride 114 H Carbon Dioxide 26 Anion Gap 8 BUN 72 H Creatinine 1.23 Est GFR ( Amer) > 60 Est GFR (Non-Af Amer) 56 L Glucose 88 Calcium 7.4 L Total Bilirubin 1.1 AST 31 ALT 35 Alkaline Phosphatase 139 H Total Protein 6.2 L Albumin 1.6 L Impressions: Chest X-Ray 06/15/16 20:08 IMPRESSION: BASILAR ATELECTASIS VERSUS INFILTRATE, GREATER ON THE LEFT. SMALL LEFT PLEURAL EFFUSION. Ribs X-Ray 06/16/16 00:00 IMPRESSION: FRACTURE OF THE POSTERIOR LEFT 7TH RIB. POSSIBLE FRACTURE OF THE POSTERIOR LEFT 8TH RIB. Guidance Fluoroscopy 06/20/16 00:00 IMPRESSION: SUCCESSFUL PLACEMENT OF A 5 FR DUAL LUMEN 32 CM PICC IN THE right basilic VEIN. Interventional Vascular Procedure 06/20/16 00:00 IMPRESSION: SUCCESSFUL PLACEMENT OF A 5 FR DUAL LUMEN 32 CM PICC IN THE right basilic VEIN. PICC Line Insertion 06/20/16 00:00 IMPRESSION: SUCCESSFUL PLACEMENT OF A 5 FR DUAL LUMEN 32 CM PICC IN THE right basilic VEIN. Assessment & Plan - Diagnosis (1) Decubitus ulcer of left heel, stage 3 Is this a current diagnosis for this admission?: YesPlan: See covering physician orders. Continue wound dressing as per surgicalist recommendations. (2) Decubitus ulcer of sacral region, stage 4 Is this a current diagnosis for this admission?: YesPlan: See covering physician orders. Continue wound dressing as per surgicalist recommendations. (3) Dehydration Plan: Improving hypernatremic dehydration status. Continue to monitor lab indices. (4) Hypernatremia Is this a current diagnosis for this admission?: YesPlan: He will benefit from increase free water administration via PEG. Maintain on enteral tube free water administration and IV fluid support. (5) Urinary tract infection associated with catheterization of urinary tract Qualifiers: Indwelling urinary catheter type: indwelling urethral catheter Encounter type: subsequent encounter Qualified Code(s): T83.511D - Infection and inflammatory reaction due to indwelling urethral catheter, subsequent encounter; N39.0 - Urinary tract infection, site not specified Is this a current diagnosis for this admission?: YesPlan: Maintain on current IV Rocephin antibiotic coverage. (6) Protein-calorie malnutrition, severe Is this a current diagnosis for this admission?: YesPlan: See covering physician orders. Maintain on Beneprotein supplementation to his enteral feeding regimen (7) Constipation Is this a current diagnosis for this admission?: NoPlan: Maintain on Lactulose 10mg via PEG daily although no response so far. I will administer Dulcolax 10mg [place] x 1 dose today. 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 I did discuss with daughter and she is agreeable to PRBC transfusion. - Time Time Spent with patient: 25-34 minutes Medications reviewed and adjusted accordingly: Yes Anticipated discharge: SNF Within: Other - Inpatient Certification Medical Necessity: Need Close Monitoring Due to Risk of Patient Decompensation, Need For IV Fluids, Need for IV Antibiotics, Risk of Diagnosis Which Will Require Inpatient Eval/Care/Monitoring Post Hospital Care: D/C or Transfer Summary - Plan Summary Plan Summary: see covering physician orders.
[2016-06-23] MEDS ORDERED: BISACODYL 10 MG SUPP.RECT PR ONE (11:45)
[2016-06-23] MEDS: LACTULOSE SYRUP 20 GM/30 ML UDCUP PO SCH (22:23)
[2016-06-23 23:11] LABS: ABSOLUTE BASOPHILS # (AUTO) 0.1 10^3/uL (0.0-0.2); ABSOLUTE EOSINOPHILS # (AUTO) 0.2 10^3/uL (0.0-0.6); ABSOLUTE MONOCYTES (AUTO) 0.4 10^3/uL (0.1-1.4); ABSOLUTE NEUT (AUTO) 9.4 10^3/uL (1.7-8.2); BASOPHILS % (AUTO) 0.4 % (0-2); EOSINOPHILS % (AUTO) 1.9 % (0-6); HEMATOCRIT 29.3 % (37.9-51.0); HGB HCT DIFFERENCE -0.5; LYMPHOCYTES % (AUTO) 16.6 % (13-45); MEAN CORPUSCULAR HEMOGLOBIN 29.8 pg (27.0-33.4); MEAN CORPUSCULAR HGB CONC 32.8 g/dL (32.0-36.0); MEAN CORPUSCULAR VOLUME 91 fl (80-97); MONOCYTES % (AUTO) 3.3 % (3-13); RED BLOOD COUNT 3.23 10^6/uL (4.35-5.55); RED CELL DISTRIBUTION WIDTH 16.8 % (11.5-14.0); SEGMENTED NEUTROPHILS % (AUTO) 77.8 % (42-78)
[2016-06-23 23:50] LABS: HEMOGLOBIN 9.6 g/dL (13.5-17.0)
[2016-06-24] MEDS: LEVOTHYROXINE SODIUM 0.05 MG TABLET PO SCH (05:22)
[2016-06-24] MEDS: MORPHINE SULFATE 10 MG/ML INJ IV PRN (05:22)
[2016-06-24] MEDS: CEFTRIAXONE 1 GM/D5W RTU 50 ML IV SCH (10:14)
[2016-06-24] MEDS: ENOXAPARIN SODIUM INJ 40 MG/0.4 ML DISP.SYRIN SUBCUT SCH (10:15)
[2016-06-24] MEDS: NORMAL SALINE 10 ML SDV (SCHEDULED) IV SCH ×2 (10:15→21:29)
[2016-06-24] MEDS: LACTULOSE SYRUP 20 GM/30 ML UDCUP PO SCH (21:29)
[2016-06-24] MEDS: DEXTROSE 5%-WATER 1000 ML 1,000 ML IV PRN (21:30)
--- NOTE | 2016-06-24 21:43 | PDOC PROGRESS REPORT ---
Subjective Progress Note for:: 06/24/16 Subjective:: Patient's condition is very poor. I discussed with the daughter the option of hospice care at this point, daughter will think about it. The tube feed is on hold because of increased residual Physical Exam Vital Signs: Temp Pulse Resp BP Pulse Ox 97.4 F 64 20 102/62 96 06/24/16 19:32 06/24/16 19:32 06/24/16 19:32 06/24/16 19:32 06/24/16 16:02 Pulse Oximeter Continuous Start: 06/15/16 23: 30 Freq: RTQ4 Status: Active Document 06/24/16 16:02 HCR (Rec: 06/24/16 16:02 HCR [email or web address]) Pulse Oximetry Assessment Oxygen Saturation (92-100) 96 Oxygen Flow Rate (L/min) 12 Oxygen Delivery Method Non-Rebreather Fraction of Inspired Oxygen (FIO2) 100 Equipment Usage Equipment in Use Continuous SpO2 Machine # 3 Intake & Output 06/23/16 06/24/16 06/25/16 06:59 06:59 06:59 Intake Total 3131 4952 423 Output Total 460 1200 300 Balance 0681 7592 123 Weight 92.9 kg 95.2 kg General appearance: PRESENT: mild distress Respiratory exam: PRESENT: crackles Cardiovascular exam: PRESENT: +S1, +S2 GI/Abdominal exam: PRESENT: soft Neurological exam: PRESENT: alert Results Laboratory Results: 06/23/16 22:58 06/23/16 08:12 06/23/16 06/23/16 21:45 22:58 WBC Cancelled 12.0 H RBC Cancelled 3.23 L Hgb Cancelled 9.6 L D Hct Cancelled 29.3 L MCV Cancelled 91 MCH Cancelled 29.8 MCHC Cancelled 32.8 RDW Cancelled 16.8 H Plt Count Cancelled 134 L Seg Neutrophils % Cancelled 77.8 Lymphocytes % Cancelled 16.6 Monocytes % Cancelled 3.3 Eosinophils % Cancelled 1.9 Basophils % Cancelled 0.4 Absolute Neutrophils Cancelled 9.4 H Absolute Lymphocytes Cancelled 2.0 Absolute Monocytes Cancelled 0.4 Absolute Eosinophils Cancelled 0.2 Absolute Basophils Cancelled 0.1 Impressions: Chest X-Ray 06/15/16 20:08 IMPRESSION: BASILAR ATELECTASIS VERSUS INFILTRATE, GREATER ON THE LEFT. SMALL LEFT PLEURAL EFFUSION. Ribs X-Ray 06/16/16 00:00 IMPRESSION: FRACTURE OF THE POSTERIOR LEFT 7TH RIB. POSSIBLE FRACTURE OF THE POSTERIOR LEFT 8TH RIB. Guidance Fluoroscopy 06/20/16 00:00 IMPRESSION: SUCCESSFUL PLACEMENT OF A 5 FR DUAL LUMEN 32 CM PICC IN THE right basilic VEIN. Interventional Vascular Procedure 06/20/16 00:00 IMPRESSION: SUCCESSFUL PLACEMENT OF A 5 FR DUAL LUMEN 32 CM PICC IN THE right basilic VEIN. PICC Line Insertion 06/20/16 00:00 IMPRESSION: SUCCESSFUL PLACEMENT OF A 5 FR DUAL LUMEN 32 CM PICC IN THE right basilic VEIN. Assessment & Plan - Diagnosis (1) Pneumonia Qualifiers: Aspiration pneumonia type: unspecified Laterality: bilateral Lung location: unspecified part of lung Is this a current diagnosis for this admission?: Yes (2) Hypernatremia Is this a current diagnosis for this admission?: Yes (3) Decubitus ulcer of sacral region, stage 4 Is this a current diagnosis for this admission?: Yes (4) Decubitus ulcer of left heel, stage 3 Is this a current diagnosis for this admission?: Yes (5) Urinary tract infection associated with catheterization of urinary tract Qualifiers: Indwelling urinary catheter type: indwelling urethral catheter Encounter type: subsequent encounter Qualified Code(s): T83.511D - Infection and inflammatory reaction due to indwelling urethral catheter, subsequent encounter; N39.0 - Urinary tract infection, site not specified Is this a current diagnosis for this admission?: Yes (6) Urethral disorder Is this a current diagnosis for this admission?: Yes
[2016-06-25] MEDS: LEVOTHYROXINE SODIUM 0.05 MG TABLET PO SCH (05:40)
[2016-06-25] MEDS: ENOXAPARIN SODIUM INJ 40 MG/0.4 ML DISP.SYRIN SUBCUT SCH (07:35)
[2016-06-25] MEDS: CEFTRIAXONE 1 GM/D5W RTU 50 ML IV SCH (09:33)
[2016-06-25] MEDS: NORMAL SALINE 10 ML SDV (SCHEDULED) IV SCH ×2 (09:33→22:13)
[2016-06-25] MEDS: MORPHINE SULFATE 10 MG/ML INJ IV PRN ×2 (09:44→14:54)
[2016-06-25] MEDS: DEXTROSE 5%-WATER 1000 ML 1,000 ML IV PRN (09:44)
--- NOTE | 2016-06-25 19:02 | PDOC PROGRESS REPORT ---
Subjective Progress Note for:: 06/25/16 Subjective:: Patient's condition remains poor, is a DO NOT RESUSCITATE status, he has episode of apnea Physical Exam Vital Signs: Temp Pulse Resp BP Pulse Ox 98.3 F 64 12 104/55 L 98 06/25/16 16:21 06/25/16 16:21 06/25/16 16:21 06/25/16 16:21 06/25/16 15:40 Pulse Oximeter Continuous Start: 06/15/16 23: 30 Freq: RTQ4 Status: Active Document 06/25/16 15:40 LDA (Rec: 06/25/16 15:40 LDA [email or web address]) Pulse Oximetry Assessment Oxygen Saturation (92-100) 98 Oxygen Flow Rate (L/min) 3 Oxygen Delivery Method Nasal Cannula Equipment Usage Equipment in Use Continuous SpO2 Machine # n-3 Intake & Output 06/24/16 06/25/16 06/26/16 06:59 06:59 06:59 Intake Total 4952 1263 700 Output Total 1200 800 300 Balance 3752 463 400 Weight 95.2 kg 93.2 kg General appearance: PRESENT: no acute distress Eye exam: PRESENT: PERRLA Respiratory exam: PRESENT: rhonchi Cardiovascular exam: PRESENT: +S1 Results Laboratory Results: 06/23/16 22:58 06/23/16 08:12 Impressions: Chest X-Ray 06/15/16 20:08 IMPRESSION: BASILAR ATELECTASIS VERSUS INFILTRATE, GREATER ON THE LEFT. SMALL LEFT PLEURAL EFFUSION. Ribs X-Ray 06/16/16 00:00 IMPRESSION: FRACTURE OF THE POSTERIOR LEFT 7TH RIB. POSSIBLE FRACTURE OF THE POSTERIOR LEFT 8TH RIB. Guidance Fluoroscopy 06/20/16 00:00 IMPRESSION: SUCCESSFUL PLACEMENT OF A 5 FR DUAL LUMEN 32 CM PICC IN THE right basilic VEIN. Interventional Vascular Procedure 06/20/16 00:00 IMPRESSION: SUCCESSFUL PLACEMENT OF A 5 FR DUAL LUMEN 32 CM PICC IN THE right basilic VEIN. PICC Line Insertion 06/20/16 00:00 IMPRESSION: SUCCESSFUL PLACEMENT OF A 5 FR DUAL LUMEN 32 CM PICC IN THE right basilic VEIN. Assessment & Plan - Diagnosis (1) Pneumonia Qualifiers: Aspiration pneumonia type: unspecified Laterality: bilateral Lung location: unspecified part of lung Is this a current diagnosis for this admission?: Yes (2) Hypernatremia Is this a current diagnosis for this admission?: Yes (3) Decubitus ulcer of sacral region, stage 4 Is this a current diagnosis for this admission?: Yes (4) Decubitus ulcer of left heel, stage 3 Is this a current diagnosis for this admission?: Yes (5) Urinary tract infection associated with catheterization of urinary tract Qualifiers: Indwelling urinary catheter type: indwelling urethral catheter Encounter type: subsequent encounter Qualified Code(s): T83.511D - Infection and inflammatory reaction due to indwelling urethral catheter, subsequent encounter; N39.0 - Urinary tract infection, site not specified Is this a current diagnosis for this admission?: Yes (6) Urethral disorder Is this a current diagnosis for this admission?: Yes
[2016-06-25] MEDS: LACTULOSE SYRUP 20 GM/30 ML UDCUP PO SCH (22:13)
[2016-06-26] MEDS: DEXTROSE 5%-WATER 1000 ML 1,000 ML IV PRN (00:50)
[2016-06-26] MEDS: LEVOTHYROXINE SODIUM 0.05 MG TABLET PO SCH (05:40)
[2016-06-26] MEDS: MORPHINE SULFATE 10 MG/ML INJ IV PRN ×3 (05:43→17:04)
[2016-06-26] MEDS: ENOXAPARIN SODIUM INJ 40 MG/0.4 ML DISP.SYRIN SUBCUT SCH (07:31)
[2016-06-26] MEDS: NORMAL SALINE 10 ML SDV (SCHEDULED) IV SCH ×2 (09:39→21:49)
[2016-06-26] MEDS: CEFTRIAXONE 1 GM/D5W RTU 50 ML IV SCH (09:39)
--- NOTE | 2016-06-26 16:53 | PDOC PROGRESS REPORT ---
Subjective Progress Note for:: 07/03/16 Subjective:: I had a long discussion with the family about patient's condition, the family is open to the idea of comfort care measures for this patient. He continues to aspirate and the feeding tube as being on hold for the last 3 days because of the residual and continuous aspiration into the tracheobronchial airway. Physical Exam Vital Signs: Temp Pulse Resp BP Pulse Ox 98.0 F 60 8 L 103/58 L 99 06/26/16 16:35 06/26/16 16:35 06/26/16 16:35 06/26/16 16:35 06/26/16 16:00 Pulse Oximeter Continuous Start: 06/15/16 23: 30 Freq: RTQ4 Status: Active Document 06/26/16 16:00 [facility] (Rec: 06/26/16 16:30 [facility] [email or web address]) Pulse Oximetry Assessment Oxygen Saturation (92-100) 99 Oxygen Flow Rate (L/min) 4 Oxygen Delivery Method Nasal Cannula Equipment Usage Equipment in Use Continuous SpO2 Machine # 3 Intake & Output 06/25/16 06/26/16 06/27/16 06:59 06:59 06:59 Intake Total 1263 1560 Output Total 800 960 Balance 463 600 Weight 93.2 kg 94.3 kg General appearance: PRESENT: mild distress Respiratory exam: PRESENT: rhonchi Cardiovascular exam: PRESENT: +S1, +S2 Results Laboratory Results: 06/23/16 22:58 06/23/16 08:12 Impressions: Chest X-Ray 06/15/16 20:08 IMPRESSION: BASILAR ATELECTASIS VERSUS INFILTRATE, GREATER ON THE LEFT. SMALL LEFT PLEURAL EFFUSION. Ribs X-Ray 06/16/16 00:00 IMPRESSION: FRACTURE OF THE POSTERIOR LEFT 7TH RIB. POSSIBLE FRACTURE OF THE POSTERIOR LEFT 8TH RIB. Guidance Fluoroscopy 06/20/16 00:00 IMPRESSION: SUCCESSFUL PLACEMENT OF A 5 FR DUAL LUMEN 32 CM PICC IN THE right basilic VEIN. Interventional Vascular Procedure 06/20/16 00:00 IMPRESSION: SUCCESSFUL PLACEMENT OF A 5 FR DUAL LUMEN 32 CM PICC IN THE right basilic VEIN. PICC Line Insertion 06/20/16 00:00 IMPRESSION: SUCCESSFUL PLACEMENT OF A 5 FR DUAL LUMEN 32 CM PICC IN THE right basilic VEIN. Assessment & Plan - Diagnosis (1) Pneumonia Qualifiers: Aspiration pneumonia type: unspecified Laterality: bilateral Lung location: unspecified part of lung Is this a current diagnosis for this admission?: Yes (2) Hypernatremia Is this a current diagnosis for this admission?: Yes (3) Decubitus ulcer of sacral region, stage 4 Is this a current diagnosis for this admission?: Yes (4) Decubitus ulcer of left heel, stage 3 Is this a current diagnosis for this admission?: Yes (5) Urinary tract infection associated with catheterization of urinary tract Qualifiers: Indwelling urinary catheter type: indwelling urethral catheter Encounter type: subsequent encounter Qualified Code(s): T83.511D - Infection and inflammatory reaction due to indwelling urethral catheter, subsequent encounter; N39.0 - Urinary tract infection, site not specified Is this a current diagnosis for this admission?: Yes (6) Urethral disorder Is this a current diagnosis for this admission?: Yes
[2016-06-26] MEDS: LACTULOSE SYRUP 20 GM/30 ML UDCUP PO SCH (21:49)
[2016-06-27] MEDS: LEVOTHYROXINE SODIUM 0.05 MG TABLET PO SCH (05:57)
[2016-06-27] MEDS: DEXTROSE 5%-WATER 1000 ML 1,000 ML IV PRN (05:57)
[2016-06-27] MEDS: MORPHINE SULFATE 10 MG/ML INJ IV PRN (05:58)
[2016-06-27] MEDS: ENOXAPARIN SODIUM INJ 40 MG/0.4 ML DISP.SYRIN SUBCUT SCH (09:42)
[2016-06-27] MEDS: NORMAL SALINE 10 ML SDV (SCHEDULED) IV SCH (09:43)
[2016-06-27] MEDS: CEFTRIAXONE 1 GM/D5W RTU 50 ML IV SCH (09:52)
[2016-06-28] MEDS: NORMAL SALINE 10 ML SDV (SCHEDULED) IV SCH ×2 (00:07→10:37)
[2016-06-28] MEDS: LACTULOSE SYRUP 20 GM/30 ML UDCUP PO SCH ×2 (00:07→21:47)
[2016-06-28] MEDS: MORPHINE SULFATE 10 MG/ML INJ IV PRN ×2 (01:16→21:48)
[2016-06-28] MEDS: LEVOTHYROXINE SODIUM 0.05 MG TABLET PO SCH (07:03)
[2016-06-28] MEDS: ENOXAPARIN SODIUM INJ 40 MG/0.4 ML DISP.SYRIN SUBCUT SCH (10:35)
[2016-06-28] MEDS: DEXTROSE 5%-WATER 1000 ML 1,000 ML IV PRN (13:48)
--- NOTE | 2016-06-28 18:11 | PDOC PROGRESS REPORT ---
Subjective Progress Note for:: 06/28/16 Subjective:: Patient's condition is very poor, I spoke to family about his condition and the plan is to transition his care to comfort care measures. Patient not expected to do well Physical Exam Vital Signs: Temp Pulse Resp BP Pulse Ox 98.5 F 67 12 119/75 99 06/28/16 16:44 06/28/16 16:44 06/28/16 16:44 06/28/16 16:44 06/28/16 16:44 Pulse Oximeter Continuous Start: 06/15/16 23: 30 Freq: RTQ4 Status: Active Document 06/28/16 16:20 [facility] (Rec: 06/28/16 16:51 [facility] [email or web address]) Pulse Oximetry Assessment Oxygen Saturation (92-100) 95 Oxygen Flow Rate (L/min) 3 Oxygen Delivery Method Nasal Cannula Equipment Usage Equipment in Use Continuous SpO2 Machine # N-3 Intake & Output 06/27/16 06/28/16 06/29/16 06:59 06:59 06:59 Intake Total 1560 1737 Output Total 1100 Balance 460 1737 Weight 95.7 kg 89.8 kg General appearance: PRESENT: mild distress Respiratory exam: PRESENT: crackles Cardiovascular exam: PRESENT: +S1, +S2 Results Laboratory Results: 06/23/16 22:58 06/23/16 08:12 Impressions: Chest X-Ray 06/15/16 20:08 IMPRESSION: BASILAR ATELECTASIS VERSUS INFILTRATE, GREATER ON THE LEFT. SMALL LEFT PLEURAL EFFUSION. Ribs X-Ray 06/16/16 00:00 IMPRESSION: FRACTURE OF THE POSTERIOR LEFT 7TH RIB. POSSIBLE FRACTURE OF THE POSTERIOR LEFT 8TH RIB. Guidance Fluoroscopy 06/20/16 00:00 IMPRESSION: SUCCESSFUL PLACEMENT OF A 5 FR DUAL LUMEN 32 CM PICC IN THE right basilic VEIN. Interventional Vascular Procedure 06/20/16 00:00 IMPRESSION: SUCCESSFUL PLACEMENT OF A 5 FR DUAL LUMEN 32 CM PICC IN THE right basilic VEIN. PICC Line Insertion 06/20/16 00:00 IMPRESSION: SUCCESSFUL PLACEMENT OF A 5 FR DUAL LUMEN 32 CM PICC IN THE right basilic VEIN. Assessment & Plan - Diagnosis (1) Pneumonia Qualifiers: Aspiration pneumonia type: unspecified Laterality: bilateral Lung location: unspecified part of lung Is this a current diagnosis for this admission?: YesPlan: Patient patient care transition to comfort care measures (2) Hypernatremia Is this a current diagnosis for this admission?: Yes (3) Decubitus ulcer of sacral region, stage 4 Is this a current diagnosis for this admission?: Yes (4) Decubitus ulcer of left heel, stage 3 Is this a current diagnosis for this admission?: Yes (5) Urinary tract infection associated with catheterization of urinary tract Qualifiers: Indwelling urinary catheter type: indwelling urethral catheter Encounter type: subsequent encounter Qualified Code(s): T83.511D - Infection and inflammatory reaction due to indwelling urethral catheter, subsequent encounter; N39.0 - Urinary tract infection, site not specified Is this a current diagnosis for this admission?: Yes (6) Urethral disorder Is this a current diagnosis for this admission?: Yes
[2016-06-29] MEDS: MORPHINE SULFATE 10 MG/ML INJ IV PRN ×5 (03:41→23:21)
--- NOTE | 2016-06-29 16:53 | PDOC PROGRESS REPORT ---
Subjective Progress Note for:: 06/29/16 Subjective:: Patient care was transition to comfort care measures, I had a discussion with the family about prognosis and the process of comfort care measures Physical Exam Vital Signs: Temp Pulse Resp BP Pulse Ox 98.0 F 66 12 120/77 100 06/28/16 19:37 06/28/16 19:37 06/28/16 19:37 06/28/16 19:37 06/29/16 00:00 Pulse Oximeter Continuous Start: 06/15/16 23: 30 Freq: RTQ4 Status: Hold Document 06/29/16 04:00 SFL (Rec: 06/29/16 04:36 SFL [email or web address]) Pulse Oximetry Assessment Equipment Usage Equipment Standby Continuous SpO2 Machine # 3 Intake & Output 06/28/16 06/29/16 06/30/16 06:59 06:59 06:59 Intake Total 1737 26 Output Total 1060 Balance 1737 -1034 Weight 89.8 kg Results Laboratory Results: 06/23/16 22:58 06/23/16 08:12 Impressions: Chest X-Ray 06/15/16 20:08 IMPRESSION: BASILAR ATELECTASIS VERSUS INFILTRATE, GREATER ON THE LEFT. SMALL LEFT PLEURAL EFFUSION. Ribs X-Ray 06/16/16 00:00 IMPRESSION: FRACTURE OF THE POSTERIOR LEFT 7TH RIB. POSSIBLE FRACTURE OF THE POSTERIOR LEFT 8TH RIB. Guidance Fluoroscopy 06/20/16 00:00 IMPRESSION: SUCCESSFUL PLACEMENT OF A 5 FR DUAL LUMEN 32 CM PICC IN THE right basilic VEIN. Interventional Vascular Procedure 06/20/16 00:00 IMPRESSION: SUCCESSFUL PLACEMENT OF A 5 FR DUAL LUMEN 32 CM PICC IN THE right basilic VEIN. PICC Line Insertion 06/20/16 00:00 IMPRESSION: SUCCESSFUL PLACEMENT OF A 5 FR DUAL LUMEN 32 CM PICC IN THE right basilic VEIN. Assessment & Plan - Diagnosis (1) Pneumonia Qualifiers: Aspiration pneumonia type: unspecified Laterality: bilateral Lung location: unspecified part of lung Is this a current diagnosis for this admission?: Yes (2) Hypernatremia Is this a current diagnosis for this admission?: Yes (3) Decubitus ulcer of sacral region, stage 4 Is this a current diagnosis for this admission?: Yes (4) Decubitus ulcer of left heel, stage 3 Is this a current diagnosis for this admission?: Yes (5) Urinary tract infection associated with catheterization of urinary tract Qualifiers: Indwelling urinary catheter type: indwelling urethral catheter Encounter type: subsequent encounter Qualified Code(s): T83.511D - Infection and inflammatory reaction due to indwelling urethral catheter, subsequent encounter; N39.0 - Urinary tract infection, site not specified Is this a current diagnosis for this admission?: Yes (6) Urethral disorder Is this a current diagnosis for this admission?: Yes
[2016-06-29] MEDS: NORMAL SALINE 10 ML SDV (AFTER EACH USE) IV PRN (23:21)
[2016-06-30] MEDS: MORPHINE SULFATE 10 MG/ML INJ IV PRN ×3 (06:31→18:21)
[2016-06-30] MEDS: NORMAL SALINE 10 ML SDV (AFTER EACH USE) IV PRN (06:32)
--- NOTE | 2016-06-30 16:24 | PDOC PROGRESS REPORT ---
Subjective Progress Note for:: 06/30/16 Subjective:: Patient is comfort care measures, Physical Exam Vital Signs: Temp Pulse Resp BP Pulse Ox 98.0 F 66 12 120/77 100 06/28/16 19:37 06/28/16 19:37 06/28/16 19:37 06/28/16 19:37 06/29/16 00:00 Pulse Oximeter Continuous Start: 06/15/16 23: 30 Freq: RTQ4 Status: Hold Document 06/29/16 04:00 SFL (Rec: 06/29/16 04:36 SFL [email or web address]) Pulse Oximetry Assessment Equipment Usage Equipment Standby Continuous SpO2 Machine # 3 Intake & Output 06/29/16 06/30/16 07/01/16 06:59 06:59 06:59 Intake Total 26 0 Output Total 1060 900 Balance -1034 -900 Weight 89.6 kg Results Laboratory Results: 06/23/16 22:58 06/23/16 08:12 Impressions: Chest X-Ray 06/15/16 20:08 IMPRESSION: BASILAR ATELECTASIS VERSUS INFILTRATE, GREATER ON THE LEFT. SMALL LEFT PLEURAL EFFUSION. Ribs X-Ray 06/16/16 00:00 IMPRESSION: FRACTURE OF THE POSTERIOR LEFT 7TH RIB. POSSIBLE FRACTURE OF THE POSTERIOR LEFT 8TH RIB. Guidance Fluoroscopy 06/20/16 00:00 IMPRESSION: SUCCESSFUL PLACEMENT OF A 5 FR DUAL LUMEN 32 CM PICC IN THE right basilic VEIN. Interventional Vascular Procedure 06/20/16 00:00 IMPRESSION: SUCCESSFUL PLACEMENT OF A 5 FR DUAL LUMEN 32 CM PICC IN THE right basilic VEIN. PICC Line Insertion 06/20/16 00:00 IMPRESSION: SUCCESSFUL PLACEMENT OF A 5 FR DUAL LUMEN 32 CM PICC IN THE right basilic VEIN. Assessment & Plan - Diagnosis (1) Pneumonia Qualifiers: Aspiration pneumonia type: unspecified Laterality: bilateral Lung location: unspecified part of lung Is this a current diagnosis for this admission?: Yes (2) Hypernatremia Is this a current diagnosis for this admission?: Yes (3) Decubitus ulcer of sacral region, stage 4 Is this a current diagnosis for this admission?: Yes (4) Decubitus ulcer of left heel, stage 3 Is this a current diagnosis for this admission?: Yes (5) Urinary tract infection associated with catheterization of urinary tract Qualifiers: Indwelling urinary catheter type: indwelling urethral catheter Encounter type: subsequent encounter Qualified Code(s): T83.511D - Infection and inflammatory reaction due to indwelling urethral catheter, subsequent encounter; N39.0 - Urinary tract infection, site not specified Is this a current diagnosis for this admission?: Yes (6) Urethral disorder Is this a current diagnosis for this admission?: Yes
[2016-07-01] MEDS: MORPHINE SULFATE 10 MG/ML INJ IV PRN (02:19)
--- NOTE | 2016-07-01 20:35 | PDOC PROGRESS REPORT ---
Subjective Progress Note for:: 07/01/16 Subjective:: Family by the bedside. Patient comfort care measures Physical Exam Vital Signs: Temp Pulse Resp BP Pulse Ox 98.0 F 66 12 120/77 100 06/28/16 19:37 06/28/16 19:37 06/28/16 19:37 06/28/16 19:37 06/29/16 00:00 Pulse Oximeter Continuous Start: 06/15/16 23: 30 Freq: RTQ4 Status: Hold Document 06/29/16 04:00 SFL (Rec: 06/29/16 04:36 [email or web address] [email or web address]) Pulse Oximetry Assessment Equipment Usage Equipment Standby Continuous SpO2 Machine # 3 Intake & Output 06/30/16 07/01/16 07/02/16 06:59 06:59 06:59 Intake Total 0 0 Output Total 900 300 200 Balance -900 -300 -200 Weight 89.6 kg 89.9 kg Results Laboratory Results: 06/23/16 22:58 06/23/16 08:12 Impressions: Chest X-Ray 06/15/16 20:08 IMPRESSION: BASILAR ATELECTASIS VERSUS INFILTRATE, GREATER ON THE LEFT. SMALL LEFT PLEURAL EFFUSION. Ribs X-Ray 06/16/16 00:00 IMPRESSION: FRACTURE OF THE POSTERIOR LEFT 7TH RIB. POSSIBLE FRACTURE OF THE POSTERIOR LEFT 8TH RIB. Guidance Fluoroscopy 06/20/16 00:00 IMPRESSION: SUCCESSFUL PLACEMENT OF A 5 FR DUAL LUMEN 32 CM PICC IN THE right basilic VEIN. Interventional Vascular Procedure 06/20/16 00:00 IMPRESSION: SUCCESSFUL PLACEMENT OF A 5 FR DUAL LUMEN 32 CM PICC IN THE right basilic VEIN. PICC Line Insertion 06/20/16 00:00 IMPRESSION: SUCCESSFUL PLACEMENT OF A 5 FR DUAL LUMEN 32 CM PICC IN THE right basilic VEIN. Assessment & Plan - Diagnosis (1) Pneumonia Qualifiers: Aspiration pneumonia type: unspecified Laterality: bilateral Lung location: unspecified part of lung Is this a current diagnosis for this admission?: Yes (2) Hypernatremia Is this a current diagnosis for this admission?: Yes (3) Decubitus ulcer of sacral region, stage 4 Is this a current diagnosis for this admission?: Yes (4) Decubitus ulcer of left heel, stage 3 Is this a current diagnosis for this admission?: Yes (5) Urinary tract infection associated with catheterization of urinary tract Qualifiers: Indwelling urinary catheter type: indwelling urethral catheter Encounter type: subsequent encounter Qualified Code(s): T83.511D - Infection and inflammatory reaction due to indwelling urethral catheter, subsequent encounter; N39.0 - Urinary tract infection, site not specified Is this a current diagnosis for this admission?: Yes (6) Urethral disorder Is this a current diagnosis for this admission?: Yes
[2016-07-02] MEDS: NORMAL SALINE 10 ML SDV (AFTER EACH USE) IV PRN (11:04)
--- NOTE | 2016-07-02 18:21 | PDOC PROGRESS REPORT ---
Subjective Progress Note for:: 07/02/16 Subjective:: Patient is comfort care measures will continue palliative care Physical Exam Vital Signs: Temp Pulse Resp BP Pulse Ox 98.0 F 66 12 120/77 100 06/28/16 19:37 06/28/16 19:37 06/28/16 19:37 06/28/16 19:37 06/29/16 00:00 Pulse Oximeter Continuous Start: 06/15/16 23: 30 Freq: RTQ4 Status: Hold Document 06/29/16 04:00 SFL (Rec: 06/29/16 04:36 [email or web address] [email or web address]) Pulse Oximetry Assessment Equipment Usage Equipment Standby Continuous SpO2 Machine # 3 Intake & Output 07/01/16 07/02/16 07/03/16 06:59 06:59 06:59 Intake Total 0 Output Total 300 200 200 Balance -300 -200 -200 Weight 89.9 kg 90.2 kg Results Laboratory Results: 06/23/16 22:58 06/23/16 08:12 Impressions: Chest X-Ray 06/15/16 20:08 IMPRESSION: BASILAR ATELECTASIS VERSUS INFILTRATE, GREATER ON THE LEFT. SMALL LEFT PLEURAL EFFUSION. Ribs X-Ray 06/16/16 00:00 IMPRESSION: FRACTURE OF THE POSTERIOR LEFT 7TH RIB. POSSIBLE FRACTURE OF THE POSTERIOR LEFT 8TH RIB. Guidance Fluoroscopy 06/20/16 00:00 IMPRESSION: SUCCESSFUL PLACEMENT OF A 5 FR DUAL LUMEN 32 CM PICC IN THE right basilic VEIN. Interventional Vascular Procedure 06/20/16 00:00 IMPRESSION: SUCCESSFUL PLACEMENT OF A 5 FR DUAL LUMEN 32 CM PICC IN THE right basilic VEIN. PICC Line Insertion 06/20/16 00:00 IMPRESSION: SUCCESSFUL PLACEMENT OF A 5 FR DUAL LUMEN 32 CM PICC IN THE right basilic VEIN. Assessment & Plan - Diagnosis (1) Pneumonia Qualifiers: Aspiration pneumonia type: unspecified Laterality: bilateral Lung location: unspecified part of lung Is this a current diagnosis for this admission?: Yes (2) Hypernatremia Is this a current diagnosis for this admission?: Yes (3) Decubitus ulcer of sacral region, stage 4 Is this a current diagnosis for this admission?: Yes (4) Decubitus ulcer of left heel, stage 3 Is this a current diagnosis for this admission?: Yes (5) Urinary tract infection associated with catheterization of urinary tract Qualifiers: Indwelling urinary catheter type: indwelling urethral catheter Encounter type: subsequent encounter Qualified Code(s): T83.511D - Infection and inflammatory reaction due to indwelling urethral catheter, subsequent encounter; N39.0 - Urinary tract infection, site not specified Is this a current diagnosis for this admission?: Yes (6) Urethral disorder Is this a current diagnosis for this admission?: Yes (7) Aspiration pneumonia Qualifiers: Aspiration pneumonia type: unspecified Laterality: unspecified laterality Lung location: unspecified part of lung Qualified Code(s) : J69.0 - Pneumonitis due to inhalation of food and vomit Is this a current diagnosis for this admission?: Yes
[2016-07-03] MEDS: NORMAL SALINE 10 ML SDV (AFTER EACH USE) IV PRN (09:59)
[2016-07-03] MEDS: MORPHINE SULFATE 10 MG/ML INJ IV PRN (16:48)
--- NOTE | 2016-07-03 16:56 | PDOC PROGRESS REPORT ---
Subjective Subjective:: Patient is comfort care measures will continue palliative care Physical Exam Vital Signs: Temp Pulse Resp BP Pulse Ox 98.0 F 66 12 120/77 100 06/28/16 19:37 06/28/16 19:37 06/28/16 19:37 06/28/16 19:37 06/29/16 00:00 Pulse Oximeter Continuous Start: 06/15/16 23: 30 Freq: RTQ4 Status: Hold Document 06/29/16 04:00 SFL (Rec: 06/29/16 04:36 [email or web address] [email or web address]) Pulse Oximetry Assessment Equipment Usage Equipment Standby Continuous SpO2 Machine # 3 Intake & Output 07/02/16 07/03/16 07/04/16 06:59 06:59 06:59 Intake Total 300 Output Total 200 200 Balance -200 100 Weight 90.2 kg Results Laboratory Results: 06/23/16 22:58 06/23/16 08:12 Impressions: Chest X-Ray 06/15/16 20:08 IMPRESSION: BASILAR ATELECTASIS VERSUS INFILTRATE, GREATER ON THE LEFT. SMALL LEFT PLEURAL EFFUSION. Ribs X-Ray 06/16/16 00:00 IMPRESSION: FRACTURE OF THE POSTERIOR LEFT 7TH RIB. POSSIBLE FRACTURE OF THE POSTERIOR LEFT 8TH RIB. Guidance Fluoroscopy 06/20/16 00:00 IMPRESSION: SUCCESSFUL PLACEMENT OF A 5 FR DUAL LUMEN 32 CM PICC IN THE right basilic VEIN. Interventional Vascular Procedure 06/20/16 00:00 IMPRESSION: SUCCESSFUL PLACEMENT OF A 5 FR DUAL LUMEN 32 CM PICC IN THE right basilic VEIN. PICC Line Insertion 06/20/16 00:00 IMPRESSION: SUCCESSFUL PLACEMENT OF A 5 FR DUAL LUMEN 32 CM PICC IN THE right basilic VEIN. Assessment & Plan - Diagnosis (1) Pneumonia Qualifiers: Aspiration pneumonia type: unspecified Laterality: bilateral Lung location: unspecified part of lung Is this a current diagnosis for this admission?: Yes (2) Hypernatremia Is this a current diagnosis for this admission?: Yes (3) Decubitus ulcer of sacral region, stage 4 Is this a current diagnosis for this admission?: Yes (4) Decubitus ulcer of left heel, stage 3 Is this a current diagnosis for this admission?: Yes (5) Urinary tract infection associated with catheterization of urinary tract Qualifiers: Indwelling urinary catheter type: indwelling urethral catheter Encounter type: subsequent encounter Qualified Code(s): T83.511D - Infection and inflammatory reaction due to indwelling urethral catheter, subsequent encounter; N39.0 - Urinary tract infection, site not specified Is this a current diagnosis for this admission?: Yes (6) Urethral disorder Is this a current diagnosis for this admission?: Yes (7) Aspiration pneumonia Qualifiers: Aspiration pneumonia type: unspecified Laterality: unspecified laterality Lung location: unspecified part of lung Qualified Code(s) : J69.0 - Pneumonitis due to inhalation of food and vomit Is this a current diagnosis for this admission?: Yes
[2016-07-04] MEDS: NORMAL SALINE 10 ML SDV (AFTER EACH USE) IV PRN (09:00)
[2016-07-05] MEDS: MORPHINE SULFATE 10 MG/ML INJ IV PRN ×4 (01:38→21:55)
[2016-07-05] MEDS: ATROPINE SULFATE 1% OPH SOLN 5 ML BOTTLE SL PRN (15:12)
[2016-07-06] MEDS: ATROPINE SULFATE 1% OPH SOLN 5 ML BOTTLE SL PRN (00:39)
--- NOTE | 2016-07-06 10:13 | PDOC PROGRESS REPORT ---
Subjective Progress Note for:: 07/06/16 Subjective:: Patient's currently on a comfort care and on a morphine test with the family in the room and patient is currently on the laying in the bed with the comfort patient's and in no acute distress is sitting Physical Exam Vital Signs: Temp Pulse Resp BP Pulse Ox 98.0 F 66 12 120/77 100 06/28/16 19:37 06/28/16 19:37 06/28/16 19:37 06/28/16 19:37 06/29/16 00:00 Pulse Oximeter Continuous Start: 06/15/16 23: 30 Freq: RTQ4 Status: Hold Document 06/29/16 04:00 SFL (Rec: 06/29/16 04:36 SFL [email or web address]) Pulse Oximetry Assessment Equipment Usage Equipment Standby Continuous SpO2 Machine # 3 Intake & Output 07/05/16 07/06/16 07/07/16 06:59 06:59 06:59 Intake Total 0 0 Output Total 650 150 Balance -650 -150 Weight 89.8 kg 89.8 kg Results Laboratory Results: 06/23/16 22:58 06/23/16 08:12 Impressions: Chest X-Ray 06/15/16 20:08 IMPRESSION: BASILAR ATELECTASIS VERSUS INFILTRATE, GREATER ON THE LEFT. SMALL LEFT PLEURAL EFFUSION. Ribs X-Ray 06/16/16 00:00 IMPRESSION: FRACTURE OF THE POSTERIOR LEFT 7TH RIB. POSSIBLE FRACTURE OF THE POSTERIOR LEFT 8TH RIB. Guidance Fluoroscopy 06/20/16 00:00 IMPRESSION: SUCCESSFUL PLACEMENT OF A 5 FR DUAL LUMEN 32 CM PICC IN THE right basilic VEIN. Interventional Vascular Procedure 06/20/16 00:00 IMPRESSION: SUCCESSFUL PLACEMENT OF A 5 FR DUAL LUMEN 32 CM PICC IN THE right basilic VEIN. PICC Line Insertion 06/20/16 00:00 IMPRESSION: SUCCESSFUL PLACEMENT OF A 5 FR DUAL LUMEN 32 CM PICC IN THE right basilic VEIN. Assessment & Plan - Plan Summary Plan Summary: Continues on comfort care
[2016-07-06] MEDS: NORMAL SALINE 10 ML SDV (AFTER EACH USE) IV PRN (15:17)
[2016-07-07] MEDS: NORMAL SALINE 10 ML SDV (AFTER EACH USE) IV PRN (10:05)
--- NOTE | 2016-07-07 11:01 | PDOC PROGRESS REPORT ---
Subjective Progress Note for:: 07/07/16 Subjective:: Patient's currently on a comfort care and on a morphine test with the family in the room and patient is currently on the laying in the bed with the comfort patient's and in no acute distress is sitting Physical Exam Vital Signs: Temp Pulse Resp BP Pulse Ox 98.0 F 66 12 120/77 100 06/28/16 19:37 06/28/16 19:37 06/28/16 19:37 06/28/16 19:37 06/29/16 00:00 Pulse Oximeter Continuous Start: 06/15/16 23: 30 Freq: RTQ4 Status: Hold Document 06/29/16 04:00 SFL (Rec: 06/29/16 04:36 SFL [email or web address]) Pulse Oximetry Assessment Equipment Usage Equipment Standby Continuous SpO2 Machine # 3 Intake & Output 07/06/16 07/07/16 07/08/16 06:59 06:59 06:59 Intake Total 0 0 Output Total 150 50 Balance -150 -50 Weight 89.8 kg 89.8 kg Results Laboratory Results: 06/23/16 22:58 06/23/16 08:12 Impressions: Chest X-Ray 06/15/16 20:08 IMPRESSION: BASILAR ATELECTASIS VERSUS INFILTRATE, GREATER ON THE LEFT. SMALL LEFT PLEURAL EFFUSION. Ribs X-Ray 06/16/16 00:00 IMPRESSION: FRACTURE OF THE POSTERIOR LEFT 7TH RIB. POSSIBLE FRACTURE OF THE POSTERIOR LEFT 8TH RIB. Guidance Fluoroscopy 06/20/16 00:00 IMPRESSION: SUCCESSFUL PLACEMENT OF A 5 FR DUAL LUMEN 32 CM PICC IN THE right basilic VEIN. Interventional Vascular Procedure 06/20/16 00:00 IMPRESSION: SUCCESSFUL PLACEMENT OF A 5 FR DUAL LUMEN 32 CM PICC IN THE right basilic VEIN. PICC Line Insertion 06/20/16 00:00 IMPRESSION: SUCCESSFUL PLACEMENT OF A 5 FR DUAL LUMEN 32 CM PICC IN THE right basilic VEIN. 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
[2016-07-08] MEDS: MORPHINE SULFATE 10 MG/ML INJ IV PRN (10:52)
[2016-07-08 14:12] VITALS: BP 104/55
--- NOTE | 2016-07-08 19:07 | PDOC TRANSFER SUMMARY ---
General - Admit/Disc Date/PCP Admission Date/Primary Care Provider: 06/15/16 23:30 RYLAN MARIE MD Discharge Date: 07/09/16 - Discharge Diagnosis (1) Pneumonia Is this a current diagnosis for this admission?: Yes (2) Hypernatremia Is this a current diagnosis for this admission?: Yes (3) Decubitus ulcer of sacral region, stage 4 Is this a current diagnosis for this admission?: Yes (4) Decubitus ulcer of left heel, stage 3 Is this a current diagnosis for this admission?: Yes (5) Urinary tract infection associated with catheterization of urinary tract Is this a current diagnosis for this admission?: Yes (6) Urethral disorder Is this a current diagnosis for this admission?: Yes (7) Aspiration pneumonia Is this a current diagnosis for this admission?: Yes - Additional Information Resuscitation Status: Do Not Resuscitate Home Medications: Loratadine 10 mg PEG DAILY 02/23/15 Losartan Potassium 50 mg PEG DAILY 12/26/15 Multivit-Min/FA/Lycopene/Lut [Certavite Sr-Antioxidant Tab] 1 tab PEG DAILY Polyvinyl Alcohol [Liquitears] 1 drop OU BID 12/26/15 Amino Acids/Protein Hydrolys [Pro-Stat Profile Liquid Packet] 30 ml PEG BID 08/26 Carvedilol [Coreg 3.125 mg Tablet] 3.125 mg PEG Q12 06/15/16 Sennosides/Docusate 8.6-50 mg [Senna Plus Tablet] 1 tab PEG BIDP PRN 06/15/16 Tamsulosin HCl [Flomax] 0.4 mg PEG QPM 06/15/16 Azelastine HCl 205.5 mcg NS DAILYP PRN 06/16/16 Cyanocobalamin (Vitamin B-12) [B-12 Compliance] 1,000 mcg IJ Q30D 06/16/16 Hyoscyamine Sulfate [Anaspaz] 0.125 mg PEG Q4HP PRN 06/16/16 Levothyroxine Sodium [Synthroid] 1 tab PEG DAILY 06/16/16 History of Present Illness Admission Date/PCP: 06/15/16 23:30 RYLAN MARIE MD History of Present Illness: Patient was admitted because of sepsis from pneumonia and UTI, see history and physical for details. Hospital Course Hospital Course: Patient was admitted with aspiration pneumonia , UTI he has advanced dementia , nonverbal bedbound with sacral decubiti ulcer and was treated with IV antibiotics, is a DO NOT RESUSCITATE status post. Patient condition did not improve despite many days of IV antibiotics,He is non-verbal, he had persistent aspiration pneumonia from the PEG tube, he had increased residual and ultimately the PEG tube feed was discontinued. Patient is presently comfort care measures. Family opted for comfort care measures when patient did not show any sign of improvement The plan is to transfer to Hospice home Physical Exam Vital Signs: Temp Pulse Resp BP Pulse Ox 99.9 F 80 19 104/55 L 95 07/08/16 09:59 07/08/16 09:59 07/08/16 09:59 07/08/16 09:59 07/08/16 09:59 Pulse Oximeter Continuous Start: 06/15/16 23: 30 Freq: RTQ4 Status: Hold Document 06/29/16 04:00 SFL (Rec: 06/29/16 04:36 SFL [email or web address]) Pulse Oximetry Assessment Equipment Usage Equipment Standby Continuous SpO2 Machine # 3 Intake & Output 07/07/16 07/08/16 07/09/16 06:59 06:59 06:59 Intake Total 0 0 0 Output Total 50 100 50 Balance -50 -100 -50 Weight 89.8 kg 89.8 kg Results Laboratory Results: 06/23/16 22:58 06/23/16 08:12 Impressions: Chest X-Ray 06/15/16 20:08 IMPRESSION: BASILAR ATELECTASIS VERSUS INFILTRATE, GREATER ON THE LEFT. SMALL LEFT PLEURAL EFFUSION. Ribs X-Ray 06/16/16 00:00 IMPRESSION: FRACTURE OF THE POSTERIOR LEFT 7TH RIB. POSSIBLE FRACTURE OF THE POSTERIOR LEFT 8TH RIB. Guidance Fluoroscopy 06/20/16 00:00 IMPRESSION: SUCCESSFUL PLACEMENT OF A 5 FR DUAL LUMEN 32 CM PICC IN THE right basilic VEIN. Interventional Vascular Procedure 06/20/16 00:00 IMPRESSION: SUCCESSFUL PLACEMENT OF A 5 FR DUAL LUMEN 32 CM PICC IN THE right basilic VEIN. PICC Line Insertion 06/20/16 00:00
--- NOTE | 2016-07-09 16:35 | Death Summary ---
Summary Date : 07/09/16 Time of :: 02:00 Resuscitation Status: Comfort Measures Only - Final Diagnosis (1) Pneumonia Is this a current diagnosis for this admission?: Yes (2) Hypernatremia Is this a current diagnosis for this admission?: Yes (3) Decubitus ulcer of sacral region, stage 4 Is this a current diagnosis for this admission?: Yes (4) Decubitus ulcer of left heel, stage 3 Is this a current diagnosis for this admission?: Yes (5) Urinary tract infection associated with catheterization of urinary tract Is this a current diagnosis for this admission?: Yes (6) Urethral disorder Is this a current diagnosis for this admission?: Yes (7) Aspiration pneumonia Is this a current diagnosis for this admission?: Yes Hospital Course:: Patient 89-year-old with advanced dementia, bedbound, nonverbal, resident of the nursing , he was admitted because of pneumonia, aspiration type and urinary tract infection associated with indwelling Saldivar catheter. He also have stage IV decubitus ulcer in the sacrum that was nonhealing . He was treated with IV antibiotic patient's condition continue to Deteriorates he was admitted 2016 on his condition was transitioned to comfort care measures on 06/29/2016, after a long discussion with the family and the fact that patient was not showing any improvement family decided that to change the plan of care to comfort care measures and the ultimate plan was to transfer him to hospice home he got placement inbut he this morning There was also associated metabolic derangement, he has severe hypernatremia, this carries a poor prognosis and is a sign of severe brain damage.
== END 2016-07-09 03:19 | DRG 871 ==
LOC: ER 20:00 → UNDOADMIN 23:14 → EH 23:14 → 4W 06-16 08:49 → 4N 06-25 04:56
PROVIDERS: ADMIT Internal Medicine; ATTEND Internal Medicine
PROC: 02HV33Z Insertion of Infusion Device into Superior Vena Cava, Percutaneous Approach (ICD-10-PCS; principal; 2016-06-20)
PROC: B548ZZA Ultrasonography of Superior Vena Cava, Guidance (ICD-10-PCS; 2016-06-20)
PROC: 30233N1 Transfusion of Nonautologous Red Blood Cells into Peripheral Vein, Percutaneous Approach (ICD-10-PCS; 2016-06-23)
DX: A41.9 Sepsis, unspecified organism (principal); L89.154 Pressure ulcer of sacral region, stage 4; J69.0 Pneumonitis due to inhalation of food and vomit; L89.623 Pressure ulcer of left heel, stage 3; E43 Unspecified severe protein-calorie malnutrition; L89.513 Pressure ulcer of right ankle, stage 3; E87.0 Hyperosmolality and hypernatremia; T83.511A Infection and inflammatory reaction due to indwelling urethral catheter, initial encounter; N39.0 Urinary tract infection, site not specified; M84.48XA Pathological fracture, other site, initial encounter for fracture; N36.9 Urethral disorder, unspecified; E86.0 Dehydration; I25.10 Atherosclerotic heart disease of native coronary artery without angina pectoris; I10 Essential (primary) hypertension; J45.909 Unspecified asthma, uncomplicated; Z93.1 Gastrostomy status; I69.320 Aphasia following cerebral infarction; I87.2 Venous insufficiency (chronic) (peripheral); Z68.25 Body mass index [BMI] 25.0-25.9, adult; D50.0 Iron deficiency anemia secondary to blood loss (chronic); Z51.5 Encounter for palliative care; Z87.440 Personal history of urinary (tract) infections; L89.322 Pressure ulcer of left buttock, stage 2; L89.312 Pressure ulcer of right buttock, stage 2; L89.892 Pressure ulcer of other site, stage 2; L89.891 Pressure ulcer of other site, stage 1; Z74.01 Bed confinement status; E03.9 Hypothyroidism, unspecified; N40.0 Benign prostatic hyperplasia without lower urinary tract symptoms; M19.90 Unspecified osteoarthritis, unspecified site; F41.9 Anxiety disorder, unspecified; Z79.899 Other long term (current) drug therapy; Y84.6 Urinary catheterization as the cause of abnormal reaction of the patient, or of later complication, without mention of misadventure at the time of the procedure; Z66 Do not resuscitate
CPT/HCPCS: 36415; 36430; 36569; 71010; 71110; 76937; 77001; 80048; 80053; 81001; 82803; 83605; 85025; 86850; 86900; 86901; 86920; 87040; 87086; 87088; 87186; 93005; 93010; 94762; 99291; C1769; J0456; J0696; J1642; J1650; J1956; J2060; J2270; J3490; J7030; J7050; J7060; P9016